=== PATIENT | male | born 1970 | race Caucasian/White ===

== ENCOUNTER 2021-09-22 09:23 | Outpatient (CLI) | payer BC, SELFPAY ==
[2021-09-22 14:04] LABS: Chloride* 98 mmol/L (96-114); Potassium* 3.1 mmol/L (3.6-5.1); Sodium* 136 mmol/L (135-149)
[2021-09-22 14:07] LABS: Blood Urea Nitrogen* 11 mg/dL (7-30); Carbon Dioxide* 34 mmol/L (20-32); Cholesterol* 194 mg/dL (90-199); Creatinine* 1.1 mg/dL (0.5-1.5); Estimated Glomerular Filt Rate 80.77; Glucose* 100 mg/dL (60-115); Triglycerides* 92 mg/dL (40-149)
[2021-09-22 14:08] LABS: Calcium* 8.6 mg/dL (8.4-10.6); HDL Cholesterol* 38 mg/dL (>=40); LDL Cholesterol Calculated 138 mg/dL (<100)
== END 2021-09-22 09:24 | disposition home or self-care (01) ==
PROVIDERS: PCP Family Medicine; Visit Provider Family Medicine
DX: E78.5 Hyperlipidemia, unspecified (principal); E87.6 Hypokalemia; D50.0 Iron deficiency anemia secondary to blood loss (chronic); I10 Essential (primary) hypertension
CPT/HCPCS: 80048; 80061

== ENCOUNTER 2022-01-26 10:59 | Outpatient (CLI) | payer BC, SELFPAY ==
[2022-01-26 13:37] LABS: Basophils Absolute Auto 0.02 K/uL (0.00-0.30); Basophils Percent Auto 0.2 % (0.0-3.0); Eosinophils Absolute Auto 0.09 K/uL (0.00-0.50); Eosinophils Percent Auto 1.1 % (0.0-7.0); Hematocrit 44.1 % (37.0-53.0); Hemoglobin* 14.8 gm/dL (13.5-17.5); Immature Granulocytes Abs Auto 0.02 K/uL (0.00-0.30); Immature Granulocytes Pct Auto 0.2 %; Lymphocytes Percent Auto 6.8 % (20-44); Mean Corpuscular HGB Conc 34 gm/dL (32-36); Mean Corpuscular Hemoglobin 29 pg (26-34); Mean Corpuscular Volume 86 fL (80-100); Monocytes Percent Auto 5.7 % (0.0-11.0); Platelet Count* 285 K/uL (140-440); RDW Coefficient of Variation % 14.9 % (11.5-15.5); Red Blood Count 5.14 m/uL (4.30-5.90); White Blood Count* 8.09 K/uL (4.50-11.00)
[2022-01-26 13:46] LABS: Slide Review Reflex No
[2022-01-26 14:18] LABS: Chloride* 93 mmol/L (96-114); Sodium* 135 mmol/L (135-149)
[2022-01-26 14:21] LABS: Creatinine* 1.1 mg/dL (0.5-1.5); Estimated Glomerular Filt Rate 81 ml/min
[2022-01-26 14:22] LABS: Blood Urea Nitrogen* 12 mg/dL (7-30); Calcium* 8.7 mg/dL (8.4-10.6); Carbon Dioxide* 35 mmol/L (20-32); Glucose* 124 mg/dL (60-115); Magnesium* 1.8 mg/dL (1.5-2.6)
[2022-01-26 14:30] LABS: Potassium* 2.4 mmol/L (3.6-5.1)
[2022-01-26 14:31] LABS: NT Pro B Type NatriureticPept* 619 PG/mL (0-125)
[2022-01-26 15:03] LABS: SARS PCR* POSITIVE SARS-CoV-2 (Negative)
== END 2022-01-26 11:00 | disposition home or self-care (01) ==
PROVIDERS: PCP Family Medicine; Visit Provider Family Medicine
DX: R53.1 Weakness (principal); R53.83 Other fatigue; R50.9 Fever, unspecified; I10 Essential (primary) hypertension; E87.6 Hypokalemia; E78.5 Hyperlipidemia, unspecified; F41.1 Generalized anxiety disorder
CPT/HCPCS: 80048; 83735; 83880; 84443; 85025; 87635

== ENCOUNTER 2022-02-04 09:28 | Inpatient (IN) | payer BC, SELFPAY ==
[2022-02-04] VITALS (14 sets, daily range): BP systolic 117–149; BP diastolic 69–121; PULSE 50–74; RESP 18–20; TEMP 35.9–36.9; O2SAT 94–98; BMI 33.0
--- NOTE | 2022-02-04 10:02 | CRLHL7_ITS ---
For Patients: As a result of the Century Cures Act, medical imaging exams and procedure reports are released immediately into your electronic medical record. You may view this report before your referring provider. If you have questions, please contact your health care provider. INDICATION: Shortness of breath TECHNIQUE: Chest 1 view COMPARISON: CT 04/04/2021 FINDINGS: The lungs have cleared since the prior study. Improved appearance of the mediastinum with decreased adenopathy. No recurrent infiltrate. No effusion or pneumothorax. IMPRESSION: No acute findings. Dictated by Poli Romano MD @ 02/04/2022 10:39:06 AM (Electronically Signed)
[2022-02-04 10:23] LABS: Basophils Absolute Auto 0.02 K/uL (0.00-0.30); Basophils Percent Auto 0.2 % (0.0-3.0); Eosinophils Absolute Auto 0.07 K/uL (0.00-0.50); Eosinophils Percent Auto 0.9 % (0.0-7.0); Hematocrit 45.9 % (37.0-53.0); Hemoglobin* 15.9 gm/dL (13.5-17.5); Immature Granulocytes Abs Auto 0.03 K/uL (0.00-0.30); Immature Granulocytes Pct Auto 0.4 %; Lymphocytes Percent Auto 17.1 % (20-44); Mean Corpuscular HGB Conc 35 gm/dL (32-36); Mean Corpuscular Hemoglobin 29 pg (26-34); Mean Corpuscular Volume 83 fL (80-100); Monocytes Percent Auto 7.3 % (0.0-11.0); Neutrophils Percent Auto 74.1 % (42.0-72.0); Platelet Count* 353 K/uL (140-440); Red Blood Count 5.53 m/uL (4.30-5.90); White Blood Count* 8.06 K/uL (4.50-11.00)
[2022-02-04 10:24] LABS: Slide Review Reflex No
[2022-02-04] MEDS: POTASSIUM CHLORIDE 10 MEQ/100 ML PIGGYBACK 100 MEQ IVPB (10:25)
[2022-02-04] MEDS: 0.9 % SODIUM CHLORIDE 1000 ml 1,000 ML IV (10:25)
[2022-02-04 10:37] LABS: Albumin* 4.4 g/dL (3.3-5.0); Chloride* 91 mmol/L (96-114)
[2022-02-04 10:38] LABS: Sodium* 137 mmol/L (135-149)
[2022-02-04 10:40] LABS: Creatinine* 0.9 mg/dL (0.5-1.5); Est. Creatinine Clearance* 99.14; Estimated Glomerular Filt Rate 103 ml/min
[2022-02-04 10:41] LABS: Alanine Aminotransferase* 25 U/L (4-50); Alkaline Phosphatase* 100 U/L (40-150); Aspartate Amino Transferase* 28 U/L (12-35); Bilirubin Direct* 0.2 mg/dL (0.0-0.5); Blood Urea Nitrogen* 8 mg/dL (7-30); Calcium* 8.5 mg/dL (8.4-10.6); Carbon Dioxide* 39 mmol/L (20-32); D Dimer Quantitative* 0.27 ug/ml (0.00-0.50); Glucose* 125 mg/dL (60-115); Magnesium* 1.7 mg/dL (1.5-2.6); Total Protein* 7.6 g/dL (6.0-8.3)
--- OUTSIDE RECORDS SUMMARY | 2022-02-04 10:44 | XMS_ITS | Clinical Summary ---
:1970 Author Organization [employer] [facility] [place] [address] Care Team Providers Name Role Phone Pcp, No Primary Care Provider Unavailable Allergies Active Allergy Reactions Severity Noted Date Comments Ciprofloxacin Vomiting 05/04/2007 Rosuvastatin Nausea And Vomiting 04/04/2021 Triamterene-Hydrochlorothiazid Dizziness 08/06/2020 Medications Medication Sig Dispensed Refills Start Date End Date Status DULoxetine Take 1 capsule by 90 capsule 3 05/30/2017 Active (CYMBALTA) 60 mg mouth once daily. Delayed-release capsuleIndications: Major depressive disorder, recurrent episode, moderate (HC) DULoxetine Take 1 capsule by 90 capsule 3 05/30/2017 Active (CYMBALTA) 30 mg mouth once daily. Delayed-release capsuleIndications: Major depressive disorder, recurrent episode, moderate (HC) buPROPion Take 1 tablet by 90 tablet 3 05/30/2017 Ac tive (WELLBUTRIN XL) 300 mouth every mg Extended-Release morning. tabletIndications: Major depressive disorder, recurrent episode, moderate (HC) metoprolol succinate Take 200 mg by 0 06/04/2019 Active (TOPROL XL) 100 mg mouth once daily. Sustained-Release tablet aspirin chewable 81 Take 1 tablet by 0 06/17/2019 Active mg chewable mouth once daily. tabletIndications: ST elevation myocardial infarction (STEMI), unspecified artery (HC) clopidogreL (PLAVIX) Take 1 tablet by 90 tablet 3 06/17/2019 Active 75 mg mouth once daily. tabletIndications: ST elevation myocardial infarction (STEMI), unspecified artery (HC) nitroglycerin Place 1 tablet 30 tablet 3 06/16/2019 Active (NITROSTAT) 0.4 mg under the tongue sublingual every 5 minutes if tabletIndications: needed. Max 3 ST elevation doses. Call 911 if myocardial no relief as infarction (STEMI), directed. unspecified artery (HC) acetaminophen Take 325-650 mg by 0 Active (TYLENOL) 325 mg mouth once daily if tablet needed (headache). Max acetaminophen dose: 4000mg in 24 hrs. omeprazole Take 1 capsule by 30 capsule 0 07/17/2019 Active (PRILOSEC) 20 mg mouth every morning Delayed-Release capsuleIndications: Nausea and vomiting, intractability of vomiting not specified, unspecified vomiting type ondansetron (ZOFRAN Place 1 tablet on 12 tablet 0 07/17/2019 Active ODT) 4 mg the tongue every 8 disintegrating hours if needed for tabletIndications: Nausea/Vomiting. Vomiting and diarrhea tamsulosin (FLOMAX) Take 0.4 mg by 0 09/30/2019 Active 0.4 mg capsule mouth once daily after a meal. meclizine (ANTIVERT) TK 1 T PO Q 8 H PRN 0 0 Active 25 mg tablet amLODIPine (NORVASC) Take 10 mg by mouth 0 Active 10 mg tablet once daily. ARIPiprazole Take 30 mg by mouth 0 Active (Abilify) 30 mg once daily. tablet ferrous sulfate, 65 Take 325 mg by 0 Active mg elemental, tablet mouth 2 times daily with meals. magnesium oxide Take 400 mg by 0 Active (MAG-OX 400) 400 mg mouth 2 times tablet daily. losartan (COZAAR) 50 Take 50 mg by mouth 0 Active mg tablet once daily. spironolactone Take 50 mg by mouth 0 Active (ALDACTONE) 50 mg once daily. tablet potassium chloride Take 2 Tablets (40 0 04/06/2021 Active (KLOR-CON M20) 20 mEq) by mouth 2 mEq Extended-Release times daily with tabletIndications: meals. Hypokalemia furosemide (LASIX) Take 1 Tablet (40 30 Tablet 0 04/07/2021 Active 40 mg mg) by mouth every tabletIndications: morning. Chronic diastolic congestive heart failure (HC) Active Problems Problem Noted Date Acute on chronic diastolic congestive heart failure Fever 04/04/2021 Hypoxia 04/04/[address] 04/04/2021 Abdominal pain 07/15/2019 Hyponatremia 07/15/2019 Acute kidney injury 07/15/2019 STEMI (ST elevation myocardial infarction) 06/15/2019 HTN (hypertension) 06/15/2019 Anxiety and depression 06/15/2019 Tobacco use 06/15/2019 Leucocytosis 06/15/2019 Hyperglycemia 06/15/2019 Hyperlipidemia 02/09/2012 Hypertension 04/19/2011 Major depressive disorder, recurrent episode, moderate 08/31/2008 Tobacco use disorder 05/07/2007 Resolved Problems Problem Noted Date Resolved Date Major depressive disorder, recurrent episode, mild 8 08/31/2008 Immunizations Name Administration Dates Next Due Tdap 11/02/2010 Family History Medical History Relation Name Comments Diabetes Brother 3 Diabetes Father Hypertension Father Diabetes Maternal Grandmother Cancer-prostate Paternal Grandfather Diabetes Paternal Grandmother Stroke Paternal Grandmother Relation Name Status Comments Brother 1 Alive Brother 2 Alive Brother 3 Father Alive Maternal Grandmother Mother Alive Paternal Grandfather Paternal Grandmother Social History Tobacco Use Types Packs/Day Years Used Date Former Smoker Cigarettes 1.5 Quit: 06/14/19 20 Smokeless Tobacco: Never Used Tobacco Cessation: Ready to Quit: No; Co unseling Given: Yes Alcohol Use Standard Drinks/Week Comments No 0 (1 standard drink = 0.6 oz pure alcoho l) Sex Assigned at Date Recorded Not on file Obstetrics History Last Filed Vital Signs Vital Sign Reading Time Taken Comments Blood Pressure 114/72 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 Pulse 63 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 Temperature 36.4 ??C (97.6 ??F) 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 Respiratory Rate 16 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 Oxygen Saturation 96% 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 Inhaled Oxygen Concentration - - Weight 91.6 kg (201 lb 15.1 oz) 04/06/2021 6:00 AM 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 Height 177.8 cm (5' 10) 04/04/2021 12:30 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 Body Mass Index 28.98 04/04/2021 12:30 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 Plan of Treatment Health Maintenance Due Date Last Done Comments Pneumococcal series for age 19-64 07/31/1975 (1 - PCV) HIV for age 15-65 1984 Hepatitis C screening for age 0507/31/1987 18-79 Zoster (shingles) series for age 0507/30/1988 50+ (1 of 2) Colonoscopy through age 75 2014 Depression screening for age 12+ 06/13/2020 06/14/2019, , 11/17/2015 COVID-19 vaccine series (3 - 09/04/2020 07/10/2020, 021 Booster for Pfizer series) BMI (ht and wt on same day) for 10/15/2020 10/16/2019, 05/12, age 18+ 09/05/2016, Additional history exists Tetanus booster 11/02/2020 11/02/2010, 11/02/2010 Influenza for age 50-64 11/11/2021 Lipids for age 45-75 05/30/2022 05/30/2017, 11/17/2015, 01/21/2013, Additional history exists Tdap Completed 11/02/2010 Results Not on filefrom Last 3 Months Insurance Payer Benefit Plan / Subscriber ID Effective Dates Phone Addre ss Type Group BLUE [employer]OSS [employer] [id number] 2019-Present [address] [place] [address] Advance Directives Latest Code Status on File Code Status Date Activated Date Inactivated Comments Full Code 04/04/2021 2:13 PM 04/06/2021 4:15 PM Code Status Discussion: Unable to Assess Preferences, Provid er to review later Full Code 07/15/2019 9:37 PM 07/17/2019 4:42 PM Code Status Discussion: Discussed Full Code 06/14/2019 9:23 PM 06/16/2019 3:19 PM Full Code 06/14/2019 9:23 PM 06/14/2019 9:23 PM Care Teams 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
[2022-02-04 10:49] LABS: NT Pro B Type NatriureticPept* 593 PG/mL (0-125); Potassium* 2.1 mmol/L (3.6-5.1)
[2022-02-04 10:54] LABS: Troponin I* 0.04 ng/mL (0.01-0.04)
--- NOTE | 2022-02-04 11:01 | ED.NURSE ---
MD Vaughn updated on pt k 2.1
[2022-02-04 11:31] LABS: SARS Antigen* negative (Negative)
[2022-02-04] MEDS: POTASSIUM BICARB 25 MEQ EFFERVESCENT TAB 50 MEQ PO (11:55)
--- NOTE | 2022-02-04 13:36 | P.IMHP_ITS ---
Hospitalist- H&P: HPI History of Present Illness Date Seen: 02/04/22 Chief complaint: Low K Narrative: Sang Blandno is a 51 year old male who presented to the ER for not feeling well. Patient notes an approximate 10 day history of feeling weak, is intermittently nauseated. Was seen at PCPs office 9 days ago, diagnosed with COVID at the time. At that time his potassium was 2.4. Known history of hypokalemia. Notes that because of illness, he hasn't been taking his potassium suppl ementation all week (on this for iatrogenic hypokalemia - on Lasix for history of CHF). He often misses his potassium supplementation secondary to taste. Notes that the bicarbonate effervescent version is much more tolerable for him. He currently has no chest pain, no dyspnea. History of hypokalemia (patient admitted for this multiple times in the past - has had normal renal and aldosterone levels in the past). Also has a history of STEMI 06/14/2019. He had stenting of his RCA, treated with dual antiplatelet therapy and rosuvastatin. In July 2019, hospitalized for Acute Renal Failure (?ATN as source) and both his olmesartan and rosuvastatin were stopped at that time. He also has a history of anemia that has been worked up with colonoscopy and endoscopy. Other past medical and surgical history updated below. Last TTE 03/2021: Final Impressions: 1. Normal LV size, mildly increased wall thickness, normal function with an estimated EF of 55 - 60%. 2. Inferior wall is abnormal. 3. Right ventricular cavity size is normal, global systolic RV function is normal. 4. Mildly enlarged left atrium. 5. The aortic valve is normal and trileaflet, no stenosis and mild to moderate regurgitation. 6. The aortic sinus is mildly dilated with a maximal diameter of 4.2 cm. 7. The inferior vena cava is consistent with elevated right atrial pressure. 8. Mildly increased estimated pulmonary pressure (32 mmHg plus RAP). ? Comparison Compared to prior exam of 10/2020: The degree of AI has increased slightly and the estimated CVP is higher. The inferior WMA was probably present on the prior study on re-review. Review of Systems Status of ROS: Reports: 10 or more systems reviewed and unremarkable except as noted in History and below Narrative: Chronic daily headache, noted in bilateral temples. Typically this is present at all times, does feel that it has been worse than last week, queries COVID as cause. Some difficulty sleeping, endorses mild orthopnea. No PND. PFSH PFS Medical History (Updated 02/04/22 @ 15:32 by Jessenia Richard MD) Acute congestive heart failure Daily headache Erectile dysfunction Gastroesophageal reflux disease Generalized anxiety disorder History of CHF (congestive heart failure) History of colonic polyps Hyperlipidemia Hypertension Hypokalemia Iron deficiency anemia due to chronic blood loss Melena Moderate episode of recurrent major depressive disorder (08/31/08) ST elevation myocardial infarction (STEMI) (06/15/19) Family History (Updated 10/04/21 @ 02:[address] MD) Family/Other Stroke Prostate cancer Father High blood pressure Lung cancer Type 1 diabetes mellitus Daughter Anxiety Social History (Updated 08/20/21 @ 10:54 by Christiano Knox) Narrative: tobacco use , 2 kids, 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, smoker, no EtOH Smoking Status: Former smoker Do you use any of these nicotine containing products: None Second hand tobacco smoke exposure: No How often do you have a drink containing alcohol: never AUDIT-C Alcohol total score: 0 Non-prescribed substance use: denies use Little interest or pleasure in doing things: nearly every day Feeling down, depressed, or hopeless: more than half the days service: No Meds Home Medications and Allergies Home Medications Medication Instructions Recorded Confirmed Type amlodipine 10 mg tablet 10 mg PO DAILY 09/22/21 02/04/22 History aspirin 81 mg chewable tablet 1 tab PO DAILY 09/22/21 02/04/22 History clopidogrel 75 mg tablet 75 mg PO DAILY 09/22/21 02/04/22 History ferrous sulfate 325 mg (65 mg 325 mg PO QDAY 09/22/21 02/04/22 History iron) tablet furosemide 40 mg tablet 40 mg PO DAILY 09/22/21 02/04/22 History losartan 50 mg tablet 50 mg PO DAILY 09/22/21 02/04/22 History magnesium oxide 400 mg (241.3 mg 400 mg PO QDAY 09/22/21 02/04/22 History magnesium) tablet metoprolol succinate 200 mg 200 mg PO DAILY 09/22/21 02/04/22 History tablet,extended release 24 hr omeprazole 20 mg capsule,delayed 20 mg PO DAILY 09/22/21 02/04/22 History release potassium chloride 20 mEq 40 meq PO BID 09/22/21 02/04/22 History tablet,extended release(part/cryst) spironolactone 50 mg tablet 50 mg PO DAILY 09/22/21 02/04/22 History tadalafil 20 mg tablet 20 mg PO .As Needed PRN 09/22/21 02/04/22 History tamsulosin 0.4 mg capsule 0.4 mg PO DAILY 09/22/21 02/04/22 History zolpidem 10 mg tablet 10 mg PO HS PRN 09/22/21 02/04/22 History duloxetine 30 mg capsule,delayed 30 mg PO QAM 01/26/22 02/04/22 History release duloxetine 60 mg capsule,delayed 60 mg PO QAM 01/26/22 02/04/22 History release nitroglycerin 0.4 mg sublingual 0.4 mg sublingual .As Needed as 01/26/22 02/04/22 History tablet needed PRN Allergies Allergy/AdvReac Type Severity Reaction Status Date / Time ciprofloxacin Allergy Severe violently Verified 02/04/22 09:40 ill rosuvastatin Allergy Unknown shutting Verified 02/04/22 09:40 kidneys down triamterene [From Maxzide] AdvReac Intermediate Verified 02/04/22 13:52 hydrochlorothiazide AdvReac Verified 02/04/22 13:52 Exam Narrative: Exam Narrative: GEN: Alert and oriented, answering questions appropriately HEENT: Normal external ears, EOMIs bilaterally CV: RRR, No concerning murmurs, rubs, or gallops R: LCTA bilaterally without concerning wheezing, rales, or rhonchi Ext: wwp, no concerning edema Skin: No concerning skin lesions or rashes on exposed skin Neuro: Nonfocal, no fasciculations Psych: Appropriate Const: Vital Signs, click to edit/add: Vital Signs - 24 hr 02/04/22 09:41 02/04/22 10:02 02/04/22 10:33 Temperature 96.6 F L Pulse Rate 55 L Pulse Rate [Pulse Oximeter] 56 L Respiratory Rate 20 Blood Pressure 137/72 Blood Pressure [Le ft Upper Arm] 134/86 Pulse Oximetry 96 98 95 Oxygen Delivery Me thod Room Air 02/04/22 11:05 02/04/22 11:30 02/04/22 11:32 Temperature Pulse Rate 57 L 62 Pulse Rate [Pulse Oximeter] Respiratory Rate Blood Pressure 131/121 H 126/102 H Blood Pressure [Le ft Upper Arm] Pulse Oximetry 96 95 Oxygen Delivery [facility] 02/04/22 12:02 02/04/22 12:33 02/04/22 12:52 Temperature Pulse Rate 59 L 51 L 51 L Pulse Rate [Pulse Oximeter] Respiratory Rate Blood Pressure 125/90 H 125/69 Blood Pressure [Le ft Upper Arm] Pulse Oximetry 96 97 Oxygen Delivery [facility] Hospitalist - H&P: Result Labs Labs: Short CBC 02/04/22 Range/Units 10:15 WBC 8.06 (4.50-11.00) K/uL Hgb 15.9 (13.5-17.5) gm/dL Hct 45.9 (37.0-53.0) % Plt Count 353 (140-440) K/uL BMP 02/04/22 10:15 Sodium 137 Potassium 2.1 L* Chloride 91 L Carbon Dioxide 39 H BUN 8 Creatinine 0.9 Glucose 125 H Calcium 8.5 Cardiac Enzymes 02/04/22 Range/Units 10:15 Troponin I 0.04 (0.01-0.04) ng/mL Liver Function 02/04/22 Range/Units 10:15 Total Bilirubin 1.0 (0.1-1.5) mg/dL Direct Bilirubin 0.2 (0.0-0.5) mg/dL AST 28 (12-35) U/L ALT 25 (4-50) U/L Alkaline Phosphatase 100 (40-150) U/L Albumin 4.4 (3.3-5.0) g/dL Assessment and Plan Assessment and plan (1) Hypokalemia: Problem comment: - Recurrent, combination of iatrogenic from Lasix and secondary to poor medication compliance - replace with effervescent potassium - increased dose of spironolactone to prevent recurrence - follow potassium and magnesium closely Status: Acute (2) Hyperlipidemia: Status: Acute (3) Hypertension: Status: Acute (4) Gastroesophageal reflux disease: Problem comment: - continue home PPI Status: Acute (5) History of CHF (congestive heart failure): Problem comment: - repeat TTE given recent COVID and concerns of orthopnea Status: Acute Plan - per above - TTE to be done today - follow electrolytes closely - continue medications further comorbidities - aspirin, Plavix, SCDs for prophylaxis
[2022-02-04] MEDS: POTASSIUM BICARB 25 MEQ EFFERVESCENT TAB PO ×4 (14:24→19:34)
[2022-02-04 14:39] LABS: Potassium* 2.6 mmol/L (3.6-5.1)
--- NOTE | 2022-02-04 15:27 | PC.NURSE ---
pt came to floor 1210. alert and orientated x4. he is eating, drinking. minimal drainage. IV is patent. he drank 700 cc. he is eating jello and pudding. he was up walking. 1430 he asked to go home. called and updated Dr. Hughes and ok for pt to go home. went over discharge packet with pt and pt and walked out with all belongings and paperwork.
--- NOTE | 2022-02-04 16:21 | ED_ITS ---
HPI - General Adult General Date Seen: 02/04/22 Chief complaint: Weakness Stated complaint: Low K Time Seen by Provider: 02/04/22 09:38 Source: patient History of Present Illness HPI narrative: Patient is a 51-year-old male who presents to the ER with ongoing weakness. He says that a couple weeks ago, he had been having trouble with weakness, shortness of breath, cough, went to clinic with these symptoms and had some testing done. He was noted to be hypokalemic at 2.4. He does have a history of chronic hypokalemia and is on replacement which he had been having some difficulty taking due to some nausea. Says he always has some difficulty with his oral potassium because the pills are really big, and it had been exacerbated because he was feeling well. He also was found to have COVID at that time. Since then, his COVID symptoms, specifically the cough, aches etcetera seem to have gotten better, however the weakness seems to have gotten worse. He is just very tired. He notes that since that visit he has not really taken any potassium replacement, as it has remained difficult to take the pills. He did try the liquid once but said he vomited that up. He has not had any focal weakness. He has headaches but that is not unusual. He denies any other pain, no chest pain or abdominal pain. He has not had vomiting or diarrhea. No lightheadedness or syncope. He is not entirely sure what the underlying cause for his hypokalemia is. He appears to be on both Lasix and spironolactone. He is also on potassium and magnesium replacement daily. Related Data Home Medications Medication Instructions Recorded Confirmed amlodipine 10 mg tablet 10 mg PO DAILY 09/22/21 02/04/22 aspirin 81 mg chewable tablet 1 tab PO DAILY 09/22/21 02/04/22 clopidogrel 75 mg tablet 75 mg PO DAILY 09/22/21 02/04/22 ferrous sulfate 325 mg (65 mg 325 mg PO QDAY 09/22/21 02/04/22 iron) tablet furosemide 40 mg tablet 40 mg PO DAILY 09/22/21 02/04/22 losartan 50 mg tablet 50 mg PO DAILY 09/22/21 02/04/22 magnesium oxide 400 mg (241.3 mg 400 mg PO QDAY 09/22/21 02/04/22 magnesium) tablet metoprolol succinate 200 mg 200 mg PO DAILY 09/22/21 02/04/22 tablet,extended release 24 hr omeprazole 20 mg capsule,delayed 20 mg PO DAILY 09/22/21 02/04/22 release potassium chloride 20 mEq 40 meq PO BID 09/22/21 02/04/22 tablet,extended release(part/cryst) spironolactone 50 mg tablet 50 mg PO DAILY 09/22/21 02/04/22 tadalafil 20 mg tablet 20 mg PO .As Needed PRN 09/22/21 02/04/22 tamsulosin 0.4 mg capsule 0.4 mg PO DAILY 09/22/21 02/04/22 zolpidem 10 mg tablet 10 mg PO HS PRN 09/22/21 02/04/22 duloxetine 30 mg capsule,delayed 30 mg PO QAM 01/26/22 02/04/22 release duloxetine 60 mg capsule,delayed 60 mg PO QAM 01/26/22 02/04/22 release nitroglycerin 0.4 mg sublingual 0.4 mg sublingual .As Needed as 01/26/22 02/04/22 tablet needed PRN Previous Rx's Medication Instructions Recorded bupropion HCl 300 mg 24 hr tablet, 300 mg PO DAILY #90 tabs 11/03/21 extended release aripiprazole 30 mg tablet 30 mg PO DAILY #90 tabs 12/27/21 Allergies Allergy/AdvReac Type Severity Reaction Status Date / Time ciprofloxacin Allergy Severe violently Verified 02/04/22 09:40 ill rosuvastatin Allergy Unknown shutting Verified 02/04/22 09:40 kidneys down triamterene [From Maxzide] AdvReac Intermediate Verified 02/04/22 13:52 hydrochlorothiazide AdvReac Verified 02/04/22 13:52 Review of Systems Status of ROS: Reports: 10 or more systems reviewed and unremarkable except as noted in History and below [facility] Medical History Acute congestive heart failure Daily headache Erectile dysfunction Gastroesophageal reflux disease Generalized anxiety disorder History of CHF (congestive heart failure) History of colonic polyps Hyperlipidemia Hypertension Hypokalemia Iron deficiency anemia due to chronic blood loss Melena Moderate episode of recurrent major depressive disorder (08/31/08) ST elevation myocardial infarction (STEMI) (06/15/19) Family History Family/Other Stroke Prostate cancer Father High blood pressure Lung cancer Type 1 diabetes mellitus Daughter Anxiety Social History Narrative: tobacco use , 2 kids, 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, smoker, no EtOH Smoking Status: Former smoker Do you use any of these nicotine containing products: None Second hand tobacco smoke exposure: No How often do you have a drink containing alcohol: never AUDIT-C Alcohol total score: 0 Non-prescribed substance use: denies use Little interest or pleasure in doing things: nearly every day Feeling down, depressed, or hopeless: more than half the days service: No Exam Narrative: Exam Narrative: Vital signs as noted above. In general, an alert, well-appearing patient. Breathing easily. Head: Normocephalic, atraumatic. Eyes: Pupils are equal reactive. Extraocular movements are full. Conjunctivae are normal. No scleral icterus. ENT: Mucous membranes are moist. Throat is normal. Neck: Supple without lymphadenopathy. No stridor. Heart: Bradycardic and regular. No murmur. Lungs: Clear bilaterally. No increased work of breathing, crackles or wheezes. Abdomen: Soft and nontender. No organomegaly. Extremities: Well perfused. No edema. No calf tenderness. Pulses intact. No clonus. Neurologic: Patient is alert and oriented to person and place. Speech is fl uent. Face is symmetric. Moves all extremities equally. Affect: Normal. Skin: Warm and dry. Well perfused. No rashes. Const: Vital Signs, click to edit/add: Vital Signs - 24 hr 02/04/22 09:41 02/04/22 10:02 02/04/22 10:33 Temperature 96.6 F L Pulse Rate 55 L Pulse Rate [Pulse Oximeter] 56 L Respiratory Rate 20 Blood Pressure 137/72 Blood Pressure [Le ft Upper Arm] 134/86 Pulse Oximetry 96 98 95 Oxygen Delivery Me thod Room Air 02/04/22 11:05 02/04/22 11:30 02/04/22 11:32 Temperature Pulse Rate 57 L 62 Pulse Rate [Pulse Oximeter] Respiratory Rate Blood Pressure 131/121 H 126/102 H Blood Pressure [Le ft Upper Arm] Pulse Oximetry 96 95 Oxygen Delivery Me thod 02/04/22 12:02 02/04/22 12:33 02/04/22 12:52 Temperature Pulse Rate 59 L 51 L 51 L Pulse Rate [Pulse Oximeter] Respiratory Rate Blood Pressure 125/90 H 125/69 Blood Pressure [Le ft Upper Arm] Pulse Oximetry 96 97 Oxygen Delivery Me thod Documenting provider has reviewed patient's vital signs: yes Course Reevaluation(s) Reevaluation #1: Following initial evaluation, patient was maintained on monitor and oximetry. I placed an IV, I ordered normal saline and ordered 10 mEq of potassium at the same time. I had reviewed his records, his potassium was 2.4 on the , and given that he is not taking any replacement I doubt that his potassium is any higher than that now. An EKG was done, this shows a sinus bradycardia, he has biphasic T-waves in the lateral leads which are different compared to a previous EKG in which there upright. I do think this is related primarily to his hypokalemia. Q-waves in the inferior leads are not new compared to his previous EKG. QT is prolonged at 504 milliseconds, again attributable most likely to his hypokalemia. I checked a magnesium which was normal at 1.7. BUN creatinine are normal. Blood sugar was normal. LFTs unremarkable. BNP mildly elevated at 593. TSH was normal. COVID was negative now. A portable chest x-ray by my review was negative for superimposed pneumonia, COVID pneumonia, pleural effusion or pulmonary edema. CBC was normal, white blood cell count is 8 and hemoglobin is 16. It does appear that his symptoms are primarily likely related to his profoundly low potassium, which returned at 2.1 here today. I gave him 50 mEq of oral potassium as well which he tolerated okay here. He will need to be hospitalized for inpatient replacement of his potassium in the short term. Vital Signs Vital signs: Initial Vital Signs Temperature 96.6 F L 02/04/22 09:41 Temperature Source Temporal Artery Scan 02/04/22 09:41 Pulse Rate 56 L 02/04/22 09:41 Pulse Rhythm 02/04/22 09:41 Respiratory Rate 20 02/04/22 09:41 Blood Pressure 134/86 02/04/22 09:41 Blood Pressure Mean 102 02/04/22 09:41 Blood Pressure Position Supine 02/04/22 09:41 Pulse Oximetry 96 02/04/22 09:41 Oxygen Delivery Method 02/04/22 09:41 Vital Signs Temperature 96.6 F L 02/04/22 09:41 Pulse Rate 56 L 02/04/22 09:41 Respiratory Rate 20 02/04/22 09:41 Blood Pressure 134/86 02/04/22 09:41 Pulse Oximetry 96 02/04/22 09:41 Oxygen Delivery Method 02/04/22 09:41 Temperature 98.5 F 02/04/22 16:11 Pulse Rate 74 02/04/22 16:11 Respiratory Rate 18 02/04/22 16:11 Blood Pressure 117/99 H 02/04/22 16:11 Pulse Oximetry 98 02/04/22 16:11 Oxygen Delivery Method 02/04/22 16:11 Medical Decision Making Lab Data Labs: Lab Results 02/04/22 02/04/22 02/04/22 Range/Units 10:03 10:15 10:15 WBC 8.06 (4.50-11.00) K/uL RBC 5.53 (4.30-5.90) m/uL Hgb 15.9 (13.5-17.5) gm/dL Hct 45.9 (37.0-53.0) % MCV 83 (80-100) fL MCH 29 (26-34) pg MCHC 35 (32-36) gm/dL RDW Coeff of Linus 14.0 (11.5-15.5) % Plt Count 353 (140-440) K/uL Neut % (Auto) 74.1 H (42.0-72.0) % Lymph % (Auto) 17.1 L (20-44) % [place] % (Auto) 7.3 (0.0-11.0) % Eos % (Auto) 0.9 (0.0-7.0) % Baso % (Auto) 0.2 (0.0-3.0) % Neut # (Auto) 6.00 (1.7-7.0) K/uL Lymph # (Auto) 1.40 (0.90-2.90) K/uL [place] # (Auto) 0.60 (0.00-0.90) K/UL Eos # (Auto) 0.07 (0.00-0.50) K/uL Baso # (Auto) 0.02 (0.00-0.30) K/uL Abs Immat Gran (auto) 0.03 (0.00-0.30) K/uL Imm/Tot Granulo (auto) 0.4 % D-Dimer Quant (PE/DVT) 0.27 (0.00-0.50) ug/ml Sodium (135-149) mmol/L Potassium (3.6-5.1) mmol/L Chloride (96-114) mmol/L Carbon Dioxide (20-32) mmol/L BUN (7-30) mg/dL Creatinine (0.5-1.5) mg/dL Estimated Creat Clear Estimated GFR ml/min Glucose (60-115) mg/dL Calcium (8.4-10.6) mg/dL Magnesium (1.5-2.6) mg/dL Total Bilirubin (0.1-1.5) mg/dL Direct Bilirubin (0.0-0.5) mg/dL AST (12-35) U/L ALT (4-50) U/L Alkaline Phosphatase (40-150) U/L Troponin I (0.01-0.04) ng/mL C-Reactive Protein (0.5-1.0) mg/dL NT-Pro-B Natriuret Pep (0-125) PG/mL Total Protein (6.0-8.3) g/dL Albumin (3.3-5.0) g/dL TSH 1.640 (0.270-4.200) uIU/mL SARS-CoV-2 Ag (Rapid) (Negative) 02/04/22 02/04/22 02/04/22 Range/Units 10:15 10:57 14:00 WBC (4.50-11.00) K/uL RBC (4.30-5.90) m/uL Hgb (13.5-17.5) gm/dL Hct (37.0-53.0) % MCV (80-100) fL MCH (26-34) pg MCHC (32-36) gm/dL RDW Coeff of Linus (11.5-15.5) % Plt Count (140-440) K/uL Neut % (Auto) (42.0-72.0) % Lymph % (Auto) (20-44) % [place] % (Auto) (0.0-11.0) % Eos % (Auto) (0.0-7.0) % Baso % (Auto) (0.0-3.0) % Neut # (Auto) (1.7-7.0) K/uL Lymph # (Auto) (0.90-2.90) K/uL [place] # (Auto) (0.00-0.90) K/UL Eos # (Auto) (0.00-0.50) K/uL Baso # (Auto) (0.00-0.30) K/uL Abs Immat Gran (auto) (0.00-0.30) K/uL Imm/Tot Granulo (auto) % D-Dimer Quant (PE/DVT) (0.00-0.50) ug/ml Sodium 137 (135-149) mmol/L Potassium 2.1 L* 2.6 L* (3.6-5.1) mmol/L Chloride 91 L (96-114) mmol/L Carbon Dioxide 39 H (20-32) mmol/L BUN 8 (7-30) mg/dL Creatinine 0.9 (0.5-1.5) mg/dL Estimated Creat Clear 99.14 Estimated GFR 103 ml/min Glucose 125 H (60-115) mg/dL Calcium 8.5 (8.4-10.6) mg/dL Magnesium 1.7 (1.5-2.6) mg/dL Total Bilirubin 1.0 (0.1-1.5) mg/dL Direct Bilirubin 0.2 (0.0-0.5) mg/dL AST 28 (12-35) U/L ALT 25 (4-50) U/L Alkaline Phosphatase 100 (40-150) U/L Troponin I 0.04 (0.01-0.04) ng/mL C-Reactive Protein 2.0 H (0.5-1.0) mg/dL NT-Pro-B Natriuret Pep 593 H (0-125) PG/mL Total Protein 7.6 (6.0-8.3) g/dL Albumin 4.4 (3.3-5.0) g/dL TSH (0.270-4.200) uIU/mL SARS-CoV-2 Ag (Rapid) negative (Negative)
--- NOTE | 2022-02-04 19:29 | PC.NURSE ---
shift note: pt up indept. pt denies pain.
[2022-02-04 20:15] LABS: Potassium* 2.8 mmol/L (3.6-5.1)
[2022-02-05 03:00] VITALS: BP 143/106; PULSE 51; RESP 18; TEMP 36.9; O2SAT 92
--- NOTE | 2022-02-05 05:28 | PC.NURSE ---
[id number]: Patient pleasant and cooperative. Flat affect. Independent. Noted to be resting/sleeping in bed entire shift. Cramping in hand noted when taking BP. Patient verbalized this has been happening. Hand resumes normal positioning after BP are complete. Denies N/V/Dizziness. Denies CP/pressure. Tele reads sinus jennifer.
[2022-02-05] MEDS: ACETAMINOPHEN 650 MG TABLET ER 1300 MG PO (06:10)
[2022-02-05 06:27] LABS: Basophils Absolute Auto 0.03 K/uL (0.00-0.30); Basophils Percent Auto 0.4 % (0.0-3.0); Eosinophils Absolute Auto 0.14 K/uL (0.00-0.50); Eosinophils Percent Auto 1.7 % (0.0-7.0); Hematocrit 44.1 % (37.0-53.0); Immature Granulocytes Abs Auto 0.04 K/uL (0.00-0.30); Immature Granulocytes Pct Auto 0.5 %; Lymphocytes Absolute Auto 1.99 K/uL (0.90-2.90); Lymphocytes Percent Auto 24.5 % (20-44); Mean Corpuscular HGB Conc 34 gm/dL (32-36); Mean Corpuscular Hemoglobin 29 pg (26-34); Mean Corpuscular Volume 84 fL (80-100); Monocytes Percent Auto 8.1 % (0.0-11.0); Neutrophils Absolute Auto 5.27 K/uL (1.7-7.0); Neutrophils Percent Auto 64.8 % (42.0-72.0); Platelet Count* 331 K/uL (140-440); RDW Coefficient of Variation % 14.2 % (11.5-15.5); Red Blood Count 5.23 m/uL (4.30-5.90); White Blood Count* 8.13 K/uL (4.50-11.00)
[2022-02-05 06:28] LABS: Slide Review Reflex No
[2022-02-05 06:56] LABS: Chloride* 94 mmol/L (96-114); Sodium* 136 mmol/L (135-149)
[2022-02-05 06:58] LABS: Creatinine* 0.9 mg/dL (0.5-1.5); Est. Creatinine Clearance* 99.14; Estimated Glomerular Filt Rate 103 ml/min
[2022-02-05 06:59] LABS: Alanine Aminotransferase* 23 U/L (4-50); Alkaline Phosphatase* 91 U/L (40-150); Aspartate Amino Transferase* 29 U/L (12-35); Bilirubin Total* 0.9 mg/dL (0.1-1.5); Blood Urea Nitrogen* 15 mg/dL (7-30); Carbon Dioxide* 35 mmol/L (20-32); Glucose* 104 mg/dL (60-115)
[2022-02-05 07:00] VITALS: BP 176/102; PULSE 55; PULSE 56; RESP 18; TEMP 36.7; O2SAT 95
[2022-02-05 07:00] LABS: Calcium* 8.5 mg/dL (8.4-10.6); Magnesium* 1.8 mg/dL (1.5-2.6)
[2022-02-05 07:14] LABS: Potassium* 2.3 mmol/L (3.6-5.1)
[2022-02-05] MEDS: POTASSIUM BICARB 25 MEQ EFFERVESCENT TAB PO ×8 (08:01→18:08)
[2022-02-05] MEDS: buPROPion XL 150 MG TABLET 300 MG PO (09:00)
[2022-02-05] MEDS: OMEPRAZOLE 20 MG CAPSULE DR PO (09:00)
[2022-02-05] MEDS: SPIRONOLACTONE 100 MG TABLET PO (09:00)
[2022-02-05] MEDS: DULOXETINE 30 MG CAPSULE DR 60 MG PO (09:00)
[2022-02-05] MEDS: ARIPiprazole 10 MG TABLET 30 MG PO (09:00)
[2022-02-05] MEDS: ASPIRIN 81 MG TAB.CHEW PO (09:00)
[2022-02-05] MEDS: DULOXETINE 30 MG CAPSULE DR PO (09:00)
[2022-02-05] MEDS: MAGNESIUM OXIDE 400 MG TABLET PO (09:01)
[2022-02-05] MEDS: AMLODIPINE 10 MG TABLET PO (09:01)
[2022-02-05] MEDS: FERROUS SULFATE 325 MG TABLET PO (09:01)
[2022-02-05] MEDS: CLOPIDOGREL 75 MG TABLET PO (09:01)
[2022-02-05] MEDS: METOPROLOL SUCCINATE (XL) 100 MG TAB 200 MG PO (09:01)
[2022-02-05] MEDS: FUROSEMIDE 40 MG TABLET PO (09:01)
[2022-02-05] MEDS: TAMSULOSIN HCL 0.4 MG CAPSULE PO (09:01)
[2022-02-05] MEDS: LOSARTAN POTASSIUM 50 MG TABLET PO (09:01)
[2022-02-05 11:00] VITALS: BP 152/113; PULSE 54; RESP 18; TEMP 36.7; O2SAT 97
--- NOTE | 2022-02-05 14:45 | PM.IMPN1 ---
Progress Note: A&P Assessment and plan (1) History of CHF (congestive heart failure): Problem details: - repeat TTE 02/05 given recent COVID and concerns of orthopnea Status: Acute (2) Hypokalemia: Problem details: - Recurrent, combination of iatrogenic from Lasix and secondary to poor medication compliance - replace with effervescent potassium, patient tolerates well - increased dose of spironolactone on 02/05 to prevent recurrence - follow potassium and magnesium closely Status: Acute (3) Gastroesophageal reflux disease: Problem details: - continue home PPI Status: Acute Plan - per above - continue to follow electrolytes closely and anticipate discharge home tomorrow Subjective Date Seen: 02/05/22 Interval history: No acute events overnight. Patient's potassium remains low, despite replacement. We will increase supplementation, have increased his spironolactone today as well. Will obtain TTE today given his orthopnea present on admission. Exam Narrative: Exam Narrative: GEN: Alert and oriented, sitting comfortably in bed, eating a quesadilla for breakfast HEENT: Normal external ears, EOMIs bilaterally, dentition poor, baseline CV: RRR, soft systolic murmur without concerning features R: LCTA bilaterally without concerning wheezing, rales, or rhonchi Ext: wwp, no concerning edema Skin: No concerning skin lesions or rashes on exposed skin Neuro: No focal deficits Psych: Appropriate Const: Vital Signs, click to edit/add: Vital Signs - 24 hr 02/04/22 15:17 02/04/22 16:11 02/04/22 15:00 Temperature 97 F L 98.5 F Pulse Rate 54 L Pulse Rate [Apical ] 52 L 74 Respiratory Rate 20 18 Blood Pressure [Ri ght Arm] 142/99 H 117/99 H Pulse Oximetry 97 98 Oxygen Delivery Me thod Room Air Room Air 02/04/22 15:00 02/04/22 15:00 02/04/22 19:00 Temperature 98.1 F Pulse Rate Pulse Rate [Apical ] 74 51 L Respiratory Rate 18 18 18 Blood Pressure [Ri ght Arm] 141/80 H Pulse Oximetry 98 95 Oxygen Delivery Me thod Room Air Room Air 02/04/22 23:00 02/04/22 23:00 02/04/22 23:00 Temperature 98.2 F Pulse Rate 50 L Pulse Rate [Apical ] 60 Respiratory Rate 20 20 Blood Pressure [Ri ght Arm] 149/90 H Pulse Oximetry 94 94 Oxygen Delivery Me thod Room Air Room Air 02/04/22 23:00 02/05/22 03:00 02/05/22 07:00 Temperature 98.4 F Pulse Rate 55 L Pulse Rate [Apical ] 51 L 51 L Respiratory Rate 18 Blood Pressure [Ri ght Arm] 143/106 H Pulse Oximetry 92 Oxygen Delivery Me thod Room Air 02/05/22 07:00 02/05/22 07:00 02/05/22 07:00 Temperature 98.1 F Pulse Rate Pulse Rate [Apical ] 56 L 56 L Respiratory Rate 18 18 18 Blood Pressure [Ri ght Arm] 176/102 H Pulse Oximetry 95 95 Oxygen Delivery Me thod Room Air Room Air 02/05/22 11:00 Temperature 98.1 F Pulse Rate Pulse Rate [Apical ] 54 L Respiratory Rate 18 Blood Pressure [Ri ght Arm] 152/113 H Pulse Oximetry 97 Oxygen Delivery Me thod Room Air Labs Labs: Laboratory Results - last 24 hr 02/04/22 02/05/22 02/05/22 19:52 05:50 05:50 WBC 8.13 RBC 5.23 Hgb 15.0 Hct 44.1 MCV 84 MCH 29 MCHC 34 RDW Coeff of Linus 14.2 Plt Count 331 Neut % (Auto) 64.8 Lymph % (Auto) 24.5 [place] % (Auto) 8.1 Eos % (Auto) 1.7 Baso % (Auto) 0.4 Neut # (Auto) 5.27 Lymph # (Auto) 1.99 [place] # (Auto) 0.70 Eos # (Auto) 0.14 Baso # (Auto) 0.03 Abs Immat Gran (auto) 0.04 Imm/Tot Granulo (auto) 0.5 Sodium 136 Potassium 2.8 L* 2.3 L* Chloride 94 L Carbon Dioxide 35 H BUN 15 Creatinine 0.9 Estimated Creat Clear 99.14 Estimated GFR 103 Glucose 104 Calcium 8.5 Magnesium 1.8 Total Bilirubin 0.9 AST 29 ALT 23 Alkaline Phosphatase 91 Total Protein 7.0 Albumin 4.0
[2022-02-05 14:47] LABS: Potassium* 3.5 mmol/L (3.6-5.1)
[2022-02-05 15:00] VITALS: BP 138/80; PULSE 54; PULSE 57; RESP 18; TEMP 36.7; O2SAT 95
--- NOTE | 2022-02-05 18:12 | PC.NURSE ---
Patient pleasant and cooperative, alert and oriented. Pt. has a flat affect but converses normally when spoken to. Pt. is up Independently in room and to BR.?Pt. has been resting/sleeping on and off throughout shift and watched football when awake.? Pt. denies N/V/Dizziness or pain.?Pt. on tele reads sinus jennifer.?Pt. BP has been elevated this AM but says this is normal, and HR sinus jenniefr, pt states this is normal. MD increased Spiralactolone and BP at 1500 was 138/80.
[2022-02-05 19:30] VITALS: BP 130/95; PULSE 53; RESP 18; TEMP 36.9; O2SAT 96
[2022-02-05 23:00] VITALS: BP 133/95; PULSE 47; PULSE 53; PULSE 57; RESP 16; RESP 18; TEMP 36.6; O2SAT 95; O2SAT 96
[2022-02-06] VITALS (7 sets, daily range): BP systolic 121–158; BP diastolic 65–98; PULSE 48–56; RESP 18; TEMP 36.4–36.9; O2SAT 92–98
--- NOTE | 2022-02-06 05:30 | PC.NURSE ---
Shift note 109-07: Pt alert, up ad john, denies any pain. Tele remains SB. Pt hopes to DC home in am.
[2022-02-06] MEDS: OMEPRAZOLE 20 MG CAPSULE DR PO (06:51)
[2022-02-06 07:18] LABS: Chloride* 93 mmol/L (96-114); Sodium* 137 mmol/L (135-149)
[2022-02-06 07:20] LABS: Est. Creatinine Clearance* 89.22; Estimated Glomerular Filt Rate 91 ml/min
[2022-02-06 07:21] LABS: Blood Urea Nitrogen* 19 mg/dL (7-30); Calcium* 8.8 mg/dL (8.4-10.6); Carbon Dioxide* 35 mmol/L (20-32); Glucose* 101 mg/dL (60-115); Magnesium* 2.1 mg/dL (1.5-2.6)
[2022-02-06 07:27] LABS: Potassium* 2.7 mmol/L (3.6-5.1)
[2022-02-06] MEDS: POTASSIUM CHLORIDE 10 MEQ/100 ML PIGGYBACK 100 MEQ IVPB (08:57)
[2022-02-06] MEDS: buPROPion XL 150 MG TABLET 300 MG PO (09:00)
[2022-02-06] MEDS: FUROSEMIDE 40 MG TABLET PO (09:00)
[2022-02-06] MEDS: METOPROLOL SUCCINATE (XL) 100 MG TAB 200 MG PO (09:01)
[2022-02-06] MEDS: AMLODIPINE 10 MG TABLET PO (09:01)
[2022-02-06] MEDS: ASPIRIN 81 MG TAB.CHEW PO (09:01)
[2022-02-06] MEDS: MAGNESIUM OXIDE 400 MG TABLET PO (09:01)
[2022-02-06] MEDS: LOSARTAN POTASSIUM 50 MG TABLET PO (09:01)
[2022-02-06] MEDS: FERROUS SULFATE 325 MG TABLET PO (09:02)
[2022-02-06] MEDS: CLOPIDOGREL 75 MG TABLET PO (09:02)
[2022-02-06] MEDS: DULOXETINE 30 MG CAPSULE DR PO (09:03)
[2022-02-06] MEDS: POTASSIUM BICARB 25 MEQ EFFERVESCENT TAB PO ×8 (09:10→22:07)
[2022-02-06] MEDS: DULOXETINE 30 MG CAPSULE DR 60 MG PO (09:10)
[2022-02-06] MEDS: TAMSULOSIN HCL 0.4 MG CAPSULE PO (09:10)
[2022-02-06] MEDS: ARIPiprazole 10 MG TABLET 30 MG PO (09:11)
[2022-02-06] MEDS: SPIRONOLACTONE 100 MG TABLET PO (09:11)
[2022-02-06 14:29] LABS: Potassium* 3.2 mmol/L (3.6-5.1)
--- NOTE | 2022-02-06 14:35 | PM.IMPN1 ---
Progress Note: A&P Assessment and plan (1) History of CHF (congestive heart failure): Problem details: - stable, reassuring TTE results 02/05 Status: Acute (2) Hypokalemia: Problem details: - Recurrent, combination of iatrogenic from Lasix in addition to poor medication compliance - replace with effervescent potassium, patient tolerates well - increased dose of spironolactone on 02/05 to prevent recurrence - follow potassium and magnesium closely - normal Magnesium and TSH, no h/o villous adenoma. Will add folate to labs, consider repeat Nephrology consult (saw them 03/2021) if symptoms persist Status: Acute (3) Gastroesophageal reflux disease: Problem details: - continue home PPI Status: Acute Plan - per above - ASA and SCDs for ppx Subjective Date Seen: 02/06/22 Interval history: No acute events overnight. Patient's potassium remains low, despite improving to 3.5 yesterday afternoon with replacement. We will continue to increase supplementation, Spironolactone was increased on 02/05. TTE obtained 02/05 Final Impressions: 1. Normal LV size, moderately increased wall thickness, normal global systolic function with an estimated EF of 60 - 65%. 2. Right ventricular cavity size is normal, global systolic RV function is normal. 3. The aortic valve is not well visualized, no stenosis and moderate regurgitation. 4. 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 Exam Narrative: Exam Narrative: GEN: Alert and oriented HEENT: Normal external ears, EOMIs bilaterally, no scleral icterus CV: RRR, No concerning murmurs, rubs, or gallops R: LCTA bilaterally without concerning wheezing, rales, or rhonchi Ext: wwp, no concerning edema Skin: No concerning skin lesions or rashes on exposed skin Neuro: Nonfocal Psych: Appropriate Const: Vital Signs, click to edit/add: Vital Signs - 24 hr 02/05/22 15:00 02/05/22 15:00 02/05/22 15:00 Temperature 98.1 F Pulse Rate Pulse Rate [Apical ] 54 L 54 L Respiratory Rate 18 18 18 Blood Pressure [Ri ght Arm] 138/80 Pulse Oximetry 95 95 Oxygen Delivery Me thod Room Air Room Air 02/05/22 15:00 02/05/22 19:30 02/05/22 23:00 Temperature 98.4 F Pulse Rate 57 L 47 L Pulse Rate [Apical ] 53 L Respiratory Rate 18 Blood Pressure [Ri ght Arm] 130/95 H Pulse Oximetry 96 Oxygen Delivery Me thod Room Air 02/05/22 23:00 02/05/22 23:00 02/05/22 23:00 Temperature 97.9 F Pulse Rate Pulse Rate [Apical ] 53 L 57 L Respiratory Rate 18 16 Blood Pressure [Ri ght Arm] 133/95 H Pulse Oximetry 96 95 Oxygen Delivery Nd thod Room Air Room Air 02/06/22 03:00 02/06/22 07:00 02/06/22 07:00 Temperature 98.3 F Pulse Rate 48 L Pulse Rate [Apical ] 51 L 48 L Respiratory Rate 18 Blood Pressure [Ri ght Arm] 158/92 H Pulse Oximetry 98 Oxygen Delivery Nd thod Room Air 02/06/22 07:00 02/06/22 07:00 02/06/22 11:00 Temperature 98.5 F 98.5 F Pulse Rate Pulse Rate [Apical ] 49 L 54 L Respiratory Rate 18 18 18 Blood Pressure [Ri ght Arm] 138/81 144/98 H Pulse Oximetry 94 94 94 Oxygen Delivery Nd thod Room Air Room Air Room Air Labs Labs: Laboratory Results - last 24 hr 02/05/22 02/06/22 02/06/22 14:26 06:17 14:08 Sodium 137 Potassium 3.5 L 2.7 L* 3.2 L Chloride 93 L Carbon Dioxide 35 H BUN 19 Creatinine 1.0 Estimated Creat Clear 89.22 Estimated GFR 91 Glucose 101 Calcium 8.8 Magnesium 2.1
--- NOTE | 2022-02-06 19:48 | PC.NURSE ---
shift note: vss stable. pt denies pain. indept in room.
[2022-02-07] MEDS: POTASSIUM BICARB 25 MEQ EFFERVESCENT TAB PO ×2 (00:16→09:56)
[2022-02-07 00:21] VITALS: BP 144/89; PULSE 54; TEMP 36.4; O2SAT 94
[2022-02-07] MEDS: OMEPRAZOLE 20 MG CAPSULE DR PO (06:36)
[2022-02-07 07:00] VITALS: O2SAT 94
[2022-02-07 07:15] LABS: Basophils Absolute Auto 0.02 K/uL (0.00-0.30); Basophils Percent Auto 0.2 % (0.0-3.0); Eosinophils Absolute Auto 0.18 K/uL (0.00-0.50); Eosinophils Percent Auto 1.9 % (0.0-7.0); Hematocrit 49.2 % (37.0-53.0); Hemoglobin* 16.6 gm/dL (13.5-17.5); Immature Granulocytes Abs Auto 0.08 K/uL (0.00-0.30); Immature Granulocytes Pct Auto 0.8 %; Lymphocytes Absolute Auto 2.06 K/uL (0.90-2.90); Lymphocytes Percent Auto 21.5 % (20-44); Mean Corpuscular HGB Conc 34 gm/dL (32-36); Mean Corpuscular Hemoglobin 29 pg (26-34); Mean Corpuscular Volume 85 fL (80-100); Monocytes Percent Auto 7.5 % (0.0-11.0); Neutrophils Absolute Auto 6.54 K/uL (1.7-7.0); Neutrophils Percent Auto 68.1 % (42.0-72.0); Platelet Count* 432 K/uL (140-440); RDW Coefficient of Variation % 14.3 % (11.5-15.5)
[2022-02-07 07:28] LABS: Slide Review Reflex No
[2022-02-07 07:38] VITALS: PULSE 46
[2022-02-07 07:42] LABS: Albumin* 4.6 g/dL (3.3-5.0); Chloride* 93 mmol/L (96-114); Potassium* 3.4 mmol/L (3.6-5.1); Sodium* 137 mmol/L (135-149)
[2022-02-07 07:44] LABS: Creatinine* 1.1 mg/dL (0.5-1.5); Est. Creatinine Clearance* 81.11; Estimated Glomerular Filt Rate 81 ml/min
[2022-02-07 07:45] LABS: Alanine Aminotransferase* 25 U/L (4-50); Alkaline Phosphatase* 105 U/L (40-150); Aspartate Amino Transferase* 29 U/L (12-35); Bilirubin Total* 0.9 mg/dL (0.1-1.5); Blood Urea Nitrogen* 17 mg/dL (7-30); Calcium* 9.2 mg/dL (8.4-10.6); Carbon Dioxide* 38 mmol/L (20-32); Glucose* 119 mg/dL (60-115); Phosphorus* 3.4 mg/dL (2.5-4.5); Total Protein* 8.2 g/dL (6.0-8.3)
[2022-02-07 07:46] LABS: Magnesium* 2.1 mg/dL (1.5-2.6)
[2022-02-07 08:00] VITALS: BP 137/95; PULSE 54; RESP 12; TEMP 36.4; O2SAT 94
[2022-02-07] MEDS: ARIPiprazole 10 MG TABLET 30 MG PO (09:35)
[2022-02-07] MEDS: SPIRONOLACTONE 100 MG TABLET PO (09:36)
[2022-02-07] MEDS: ASPIRIN 81 MG TAB.CHEW PO (09:37)
[2022-02-07] MEDS: CLOPIDOGREL 75 MG TABLET PO (09:37)
[2022-02-07] MEDS: TAMSULOSIN HCL 0.4 MG CAPSULE PO (09:38)
[2022-02-07] MEDS: MAGNESIUM OXIDE 400 MG TABLET PO (09:38)
[2022-02-07] MEDS: buPROPion XL 150 MG TABLET 300 MG PO (09:40)
[2022-02-07] MEDS: METOPROLOL SUCCINATE (XL) 100 MG TAB 200 MG PO (09:40)
[2022-02-07] MEDS: AMLODIPINE 10 MG TABLET PO (09:41)
[2022-02-07] MEDS: FUROSEMIDE 20 MG TABLET PO (09:42)
[2022-02-07] MEDS: FERROUS SULFATE 325 MG TABLET PO (09:44)
[2022-02-07] MEDS: LOSARTAN POTASSIUM 50 MG TABLET PO (09:44)
--- NOTE | 2022-02-07 09:47 | PM.DS1 ---
DS: Providers Provider Date Seen: 02/07/22 Date of admission: 02/04/22 14:05 Primary care physician: Poli Street MD Admitting Clinician: Jessenai Richard MD Attending Physician on discharge: Jessenia Richard MD Date of Discharge: 02/07/22 DS: Diagnosis Discharge Diagnosis (1) Hypokalemia: Status: Acute Problem details: - Recurrent, likely combination of iatrogenic from Lasix in addition to poor medication compliance - replaced with effervescent potassium, patient tolerates well - increased dose of spironolactone on 02/05 to prevent recurrence - follow potassium and magnesium closely - normal Magnesium and TSH, no h/o villous adenoma. Will add folate to labs, consider repeat Nephrology consult (saw them inpatient 03/2021) if symptoms persist (2) History of CHF (congestive heart failure): Status: Acute Problem details: - stable, reassuring TTE results 02/05 DS: Summary Hospital Course Hospital Course: 51-year-old male admitted to the hospital for recurrent hypokalemia; likely secondary to a combination of iatrogenic from a Lasix use and also secondary to poor compliance with outpatient potassium replacement (patient does not like taste of pills). He did well with effervescent replacement during stay; unfortunately, did take quite some time 1st potassium to get above 3. Because of this, we increased his spironolactone and decreased his Lasix (on both of these for history of CHF). See below for formal medication changes. Effervescent potassium tablets are not covered by insurance; will continue his current replacement of 40 mg b.i.d. and recommend taking with applesauce or yogurt to minimize side effects. TTE repeated during stay, stable. Patient verbalized understanding of discharge plan, stable and appropriate for discharge home on 02/07/2022, with close PCP follow-up and BMP later this week. Status at Discharge Functional status at discharge: independent ambulation Overall status at discharge: patient is back to baseline Time Spent with Patient Time attestation: Total time spent providing and/or coordinating discharge services: Time spent: Greater than 30 minutes Specific discharge activities: medication reconciliation and new prescriptions Exam Narrative: Exam Narrative: GEN: Alert and oriented, nontoxic in appearance HEENT: Normal external ears, EOMIs bilaterally CV: RRR, No concerning murmurs, rubs, or gallops R: LCTA bilaterally without concerning wheezing, rales, or rhonchi Ext: wwp, trace edema bilateral ankles Skin: No concerning skin lesions or rashes on exposed skin Neuro: Nonfocal Psych: Appropriate Const: Vital Signs, click to edit/add: Vital Signs - 24 hr 02/06/22 11:00 02/06/22 15:00 02/06/22 15:00 Temperature 98.5 F 97.9 F Pulse Rate Pulse Rate [Apical ] 54 L 54 L Respiratory Rate 18 18 Blood Pressure [Ri ght Arm] 144/98 H 137/82 Pulse Oximetry 94 92 92 Oxygen Delivery Me thod Room Air Room Air Room Air 02/06/22 15:28 02/06/22 20:15 02/07/22 00:21 Temperature 97.5 F L 97.6 F Pulse Rate 56 L Pulse Rate [Apical ] 56 L 54 L Respiratory Rate 18 Blood Pressure [Ri ght Arm] 121/65 144/89 H Pulse Oximetry 94 94 Oxygen Delivery Me thod Room Air Room Air 02/06/22 23:00 02/07/22 07:38 Temperature Pulse Rate 46 L Pulse Rate [Apical ] Respiratory Rate Blood Pressure [Ri ght Arm] Pulse Oximetry 93 Oxygen Delivery Me thod Room Air DS: Data Data Completed and Pending Labs on day of discharge: Labs from last 24 hours 02/07/22 02/07/22 02/06/22 06:55 06:55 14:08 WBC 9.60 RBC 5.80 Hgb 16.6 Hct 49.2 MCV 85 MCH 29 MCHC 34 RDW Coeff of Linus 14.3 Plt Count 432 Neut % (Auto) 68.1 Lymph % (Auto) 21.5 [place] % (Auto) 7.5 Eos % (Auto) 1.9 Baso % (Auto) 0.2 Neut # (Auto) 6.54 Lymph # (Auto) 2.06 [place] # (Auto) 0.70 Eos # (Auto) 0.18 Baso # (Auto) 0.02 Abs Immat Gran (auto) 0.08 Imm/Tot Granulo (auto) 0.8 Sodium 137 Potassium 3.4 L Chloride 93 L Carbon Dioxide 38 H BUN 17 Creatinine 1.1 Estimated Creat Clear 81.11 Estimated GFR 81 Glucose 119 H Calcium 9.2 Phosphorus 3.4 Magnesium 2.1 Total Bilirubin 0.9 AST 29 ALT 25 Alkaline Phosphatase 105 Total Protein 8.2 Albumin 4.6 RBC Fol Alexandr for Serum Pending 02/06/22 14:08 WBC RBC Hgb Hct MCV MCH MCHC RDW Coeff of Linus Plt Count Neut % (Auto) Lymph % (Auto) [place] % (Auto) Eos % (Auto) Baso % (Auto) Neut # (Auto) Lymph # (Auto) [place] # (Auto) Eos # (Auto) Baso # (Auto) Abs Immat Gran (auto) Imm/Tot Granulo (auto) Sodium Potassium 3.2 L Chloride Carbon Dioxide BUN Creatinine Estimated Creat Clear Estimated GFR Glucose Calcium Phosphorus Magnesium Total Bilirubin AST ALT Alkaline Phosphatase Total Protein Albumin RBC Fol Alexandr for Serum Discharge Plan Discharge Disposition: Home, Self-Care Date of Admission: 02/04/22 14:05 Attending Provider on Discharge: Jessenia Richard Primary Care Provider: Poli Street Condition: Improved Anticipated Discharge Date/Time: 02/07/22 12:00 Discharge Medications: New spironolactone 100 mg Tablet 100 mg PO DAILY Qty: 30 0RF Rx Instructions: please note dose increase furosemide [Lasix] 20 mg tablet 20 mg PO DAILY Qty: 30 0RF Continued zolpidem 10 mg tablet 10 mg PO HS PRN aspirin 81 mg tablet,chewable 1 tab PO DAILY potassium chloride 20 mEq tablet,ER particles/crystals 40 meq PO BID ferrous sulfate 325 mg (65 mg iron) tablet 325 mg PO QDAY metoprolol succinate 200 mg tablet extended release 24 hr 200 mg PO DAILY losartan 50 mg tablet 50 mg PO DAILY omeprazole 20 mg capsule,delayed release(DR/EC) 20 mg PO DAILY clopidogrel 75 mg tablet 75 mg PO DAILY tamsulosin 0.4 mg capsule 0.4 mg PO DAILY amlodipine 10 mg tablet 10 mg PO DAILY magnesium oxide 400 mg (241.3 mg magnesium) tablet 400 mg PO QDAY tadalafil 20 mg tablet 20 mg PO .As Needed PRN Rx Instructions: TAKE ONE TABLET 30 MIN TO 36 HRS PRIOR TO INTERCOURSE nitroglycerin 0.4 mg tablet, sublingual 0.4 mg sublingual .As Needed as needed PRN duloxetine 30 mg capsule,delayed release(DR/EC) 30 mg PO QAM Rx Instructions: total dose 90 mg duloxetine 60 mg capsule,delayed release(DR/EC) 60 mg PO QAM Rx Instructions: Takes 90mg in the morning bupropion HCl 300 mg tablet extended release 24 hr 300 mg PO DAILY Qty: 90 1RF aripiprazole 30 mg tablet 30 mg PO DAILY Qty: 90 0RF Discontinued furosemide 40 mg tablet 40 mg PO DAILY spironolactone 50 mg tablet 50 mg PO DAILY Discharge Orders: Discharge Order (Routine); Ordered 02/07/22 Ordered By: Jessenia Richard Patient Education: Hypokalemia (DC) Additional Instructions: MEDICATION CHANGES: - INCREASE Spironolactone from 50mg to 100mg daily (this can help increase your potassium) - DECREASE Lasix from 40 to 20mg daily - Stay on Potassium 40meq TWICE PER DAY (take with applesauce or yogurt) - See Dr. Street later this week with labs at that time Activity Level: Activity as Tolerated Discharge Diet: Regular and Heart Healthy (2 gm sodium, low fat) Follow Up Appointments: Poli Street MD [Primary Care Provider] - 02/10/22 9:00 am (BMP at appt) Forms: [facility] Info Instructions
[2022-02-07] MEDS: DULOXETINE 30 MG CAPSULE DR PO (09:55)
[2022-02-07] MEDS: DULOXETINE 30 MG CAPSULE DR 60 MG PO (09:56)
[2022-02-07 10:36] VITALS: BP 125/69; PULSE 46; RESP 12; TEMP 36.4
--- NOTE | 2022-02-07 12:33 | PC.NURSE ---
Patient Ind, tolerated am dose of potassium, reviewed discharge instructions including medication changes, patient denied questions or concerns. D/C home via .
[2022-02-08 10:48] LABS: Folate, Serum 4.2 ng/mL (>=5.9)
== END 2022-02-07 11:30 | disposition home or self-care (01) | DRG 425 ==
LOC: ED 10:42 → MEDSURG 12:27
PROVIDERS: Admitting Provider Family Medicine; Emergency Provider Emergency Medicine; PCP Family Medicine; Visit Provider Family Medicine
DX: E87.6 Hypokalemia (principal); Z91.14 Patient's other noncompliance with medication regimen; T50.1X5A Adverse effect of loop [high-ceiling] diuretics, initial encounter; Z91.128 Patient's intentional underdosing of medication regimen for other reason; T50.3X6A Underdosing of electrolytic, caloric and water-balance agents, initial encounter; R06.01 Orthopnea; I11.0 Hypertensive heart disease with heart failure; I50.9 Heart failure, unspecified; F41.1 Generalized anxiety disorder; K21.9 Gastro-esophageal reflux disease without esophagitis; Z86.16 Personal history of COVID-19; N52.9 Male erectile dysfunction, unspecified; I25.2 Old myocardial infarction; E78.5 Hyperlipidemia, unspecified; F33.9 Major depressive disorder, recurrent, unspecified
CPT/HCPCS: 36415; 71045; 80048; 80053; 80076; 82746; 83735; 83880; 84100; 84132; 84443; 84484; 85025; 85379; 86140; 87426; 93005; 93306; 94761; 99284; 99285; A9270; J3480; J7030

== ENCOUNTER 2022-02-10 08:55 | Outpatient (CLI) | payer BC, SELFPAY ==
--- OUTSIDE RECORDS SUMMARY | 2022-02-10 08:57 | XMS_ITS | Clinical Summary ---
:1970 Author Organization [employer] [facility] [place] [address] Care Team Providers Name Role Phone Pcp, [...] depressive disorder, recurrent episode, mild 8 08/31/2008 Encounters Date Type Specialty Care Team Description 02/05/2022 Orders Only <No scans attac hed> from Last 3 Months Immunizations Name Administration Dates Next Due Tdap [...] Comments Blood Pressure 114/72 04/06/2021 12:19 PM OFFAL TRIMMER Pulse 63 04/06/2021 12:19 PM OFFAL TRIMMER Temperature 36.4 ??C (97.6 ??F) 04/06/2021 12:19 PM OFFAL TRIMMER Respiratory Rate 16 04/06/2021 12:19 PM OFFAL TRIMMER Oxygen Saturation 96% 04/06/2021 12:19 PM OFFAL TRIMMER Inhaled Oxygen Concentration - - Weight 91.6 kg (201 lb 15.1 oz) 04/06/2021 6:00 AM OFFAL TRIMMER Height 177.8 cm (5' 10) 04/04/2021 12:30 PM OFFAL TRIMMER Body Mass Index 28.98 04/04/2021 12:30 PM OFFAL TRIMMER Plan of Treatment Health Maintenance Due Date [...] 01/21/2013, Additional history exists Tdap Completed 11/02/2010 Procedures Procedure Name Priority Date/Time Associated Diagnosis Comme nts ECHO COMPLETE WO Routine 02/05/2022 4:37 PM Orthopnea Resul ts for this CONTRAST OFFAL TRIMMER procedure are i n the results section. from Last 3 Months Results ECHO COMPLETE WO CONTRAST (02/05/2022 4:37 PM OFFAL TRIMMER) P athologist Signature AORTIC VALVE 6 mmHg MEAN PG EJECTION 71 % FRACTION LVEDD 4.5 cm EJECTION 60 - 65% FRACTION Anatomical Region Laterality Modality HEART Ultrasound Specimen (Source) Anatomical Collection Method Collection Time Re ceived Time Location / / Volume Laterality 02/05/2022 2:53 PM OFFAL TRIMMER Narrative 02/05/2022 4:57 PM OFFAL TRIMMER ECHOCARDIOGRAM SANG Fanny ALVA ? Accessi on#: ?? [id number] : ?1970 51 years Study Date: ?? 02/05/2022 2:53:44 PM Gender: M ?BP: ? 152/113 mmHg Height: 178.00 cm ?BSA: ?2.22 m? ?? Weight: 105.00 kg ?Tech: ? MJS ? Referring MD: JESSENIA LOPEZ Site: ? [facility] Reading Location: [facility] Procedure: 2D, Color Doppler and Spectra l Doppler. Indication for study: ORTHOPNEA Cardiac Rhythm: Regular.Study quality: F air. Final Impressions: 1. Normal LV size, moderately increased wall thickness, normal global systolic function with an estimated EF of 60 - 65%. 2. Right ventricular cavity size is nor mal, global systolic RV function is normal. 3. The aortic valve is not well visuali zed, no stenosis and moderate regurgitation. 4. 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 Chamber Sizes and Function Normal left ventricular size, moderately increased wall thickness, normal global systolic function with an estimated EF of 60 - 65%. Left atrial size is normal. Right ventricular cavity size is normal, global systolic RV function is normal. T he right atrium is normal. Right atrial volume index is 20 ml/m? ??. Right atrial area is 15 cm? ??. The pulmonary artery is not well visualized. The sinus of Kate soraida is dilated. The ascending aorta is normal sized. Valves, RV Pressures and Diastolic Funct ion The aortic valve is not well visualized , no stenosis and moderate regurgitation. The mitral valve is normal in structure, trace mitral regurgitation. Indeterminate pattern of LV diastolic filling. The tricuspid valve is normal in structure. Tricuspid regurgitation is trace regurgitation. The pulmonic valve is not well visualized. No pulmonary regurgitation. TTE images do not appear adequate for transcather intervention with patient supine. Masses, Effusion, Shunts There is no pericardial effusion. The in ferior vena cava is normal sized, respiratory size variation not well visualized. No left to right shunting was detected by limited color flow Doppler interrogation of the interatrial septum. MEASUREMENTS AND CALCULATIONS 2-D Measurements and LV Function: LVID (d) 4.5 cm LV FS% (2D) ?? 42 % LVID (s) 2.6 cm LVOT diameter 2.2 cm IVS (d) ??1.6 cm HR ?55 bpm LVPW (d) 1.3 cm LA Vol index ??29 ml/m2 Ao Sinus 4.4 cm RA Vol index ??20 ml/m2 Asc Ao ?? 3.7 cm RA area ? 15 cm? ?? LA ? 4.1 cm RV Max 4C (d) 2.9 cm Diastology: Mitral E Peak 0.8 m/s A Peak 0.5 m/s E/A ?1.4 DT ? 250 msec Aortic Valve: Vmax ? 1.7 m/s ??HOLLIE (V) ?? 2.56 cm? AI P 1/2 940 msec VTI ?0.36 m ?? HOLLIE (I) ?? 3.18 cm? AI Vol ?? 36 ml LVOT V max 1.2 m/s ??Max PG ?11 mmHg LVOT VTI ?? 0.30 m ?? Mean PG ?? 6 mmHg SV ? 113 ml ?? Dim Index 0.85 SV index ?? 51 ml/m? ?? CO ?6.2 l/min ?CI ?2.8 l/min/m? ?? Mitral Valve: MVA ?3.0 cm? ?? MV P 1/2 73 msec Tricuspid Valve and estimated PA pressur es: TAPSE 2.6 cm . This study was interpreted by an [facility] redited facility. CC: [facility] [place], [facility]/ Surg - IP [facility]. ??Final ?? Procedure Note Poli Canchola MD - 02/05/2022 ECHOCARDIOGRAM SANG ALVA : 1970 51 years Study Date: 01/12 2:53:44 PM Gender: M BP: 152/113 mmHg Height: 178.00 cm BSA: 2.22 m? ?? Weight: 105.00 kg Tech: KRISTEN Referring MD: JESSENIA LOPEZ Site: [facility] Reading Location: [facility] Procedure: 2D, Color Doppler and Spectra l Doppler. Indication for study: ORTHOPNEA Cardiac Rhythm: Regular.Study quality: F air. Final Impressions: 1. Normal LV size, moderately increased wall thickness, normal global systolic function with an estimated EF of 60 - 65%. 2. Right ventricular cavity size is nor mal, global systolic RV function is normal. 3. The aortic valve is not well visuali zed, no stenosis and moderate regurgitation. 4. 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 Chamber Sizes and Function Normal left ventricular size, moderately increased wall thickness, normal global systolic function with an estimated EF of 60 - 65%. Left atrial size is normal. Right ventricular cavity size is normal, global systolic RV function is normal. The right atrium is normal. Right atrial volume index is 20 ml/m? ??. Right atrial area is 15 cm? ??. The pulmonary artery is not well visualized. The sinus of Valsalva is dilat ed. The ascending aorta is normal sized. Valves, RV Pressures and Diastolic Funct ion The aortic valve is not well visualized , no stenosis and moderate regurgitation. The mitral valve is normal in structure, trace mitral regurgitation. Indeterminate pattern of LV diastolic filling. The tricuspid valve is normal in structure. Tricuspid regurgitation is trace regurgitation. The pulmonic valve is not well visualized. No pulmonary regurgitation. TTE images do not appear adequate for transcather intervention with patient supine. Masses, Effusion, Shunts There is no pericardial effusion. The in ferior vena cava is normal sized, respiratory size variation not well visualized. No left to right shunting was detected by limited color flow Doppler interrogation of the interatrial septum. MEASUREMENTS AND CALCULATIONS 2-D Measurements and LV Function: LVID (d) 4.5 cm LV FS% (2D) 42 % LVID (s) 2.6 cm LVOT diameter 2.2 cm IVS (d) 1.6 cm HR 55 bpm LVPW (d) 1.3 cm LA Vol index 29 ml/m2 Ao Sinus 4.4 cm RA Vol index 20 ml/m2 Asc Ao 3.7 cm RA area 15 cm? ?? LA 4.1 cm RV Max 4C (d) 2.9 cm Diastology: Mitral E Peak 0.8 m/s A Peak 0.5 m/s E/A 1.4 DT 250 msec Aortic Valve: Vmax 1.7 m/s HOLLIE (V) 2.56 cm? ?? AI P 1/2 940 msec VTI 0.36 m HOLLIE (I) 3.18 cm? ?? AI Vol 36 ml LVOT V max 1.2 m/s Max PG 11 mmHg LVOT VTI 0.30 m Mean PG 6 mmHg SV 113 ml Dim Index 0.85 SV index 51 ml/m? ?? CO 6.2 l/min CI 2.8 l/min/m? ?? Mitral Valve: MVA 3.0 cm? ?? MV P 1/2 73 msec Tricuspid Valve and estimated PA pressur es: TAPSE 2.6 cm . This study was interpreted by an [facility] redited facility. CC: [facility] [place], Med/ Surg - IP [facility]. Final Jessenia Lopez MD ECHO ORD from Last 3 Months Insurance Payer Benefit Plan / Subscriber ID Effective Dates Phone Addre ss Type Group BLUE CROSS BL[employer] OF [id number] 2019-Present [address] [place] [address] Advance Directives Latest Code Status on File [...] 9:23 PM 06/14/2019 9:23 PM Care Teams Almond Paste Molder Relationship Specialty Start Date End Date Pcp, No PCP - General 12/04/21 .
[2022-02-10 15:56] LABS: Basophils Absolute Auto 0.02 K/uL (0.00-0.30); Basophils Percent Auto 0.2 % (0.0-3.0); Eosinophils Absolute Auto 0.15 K/uL (0.00-0.50); Eosinophils Percent Auto 1.4 % (0.0-7.0); Hematocrit 47.7 % (37.0-53.0); Immature Granulocytes Abs Auto 0.04 K/uL (0.00-0.30); Immature Granulocytes Pct Auto 0.4 %; Lymphocytes Absolute Auto 2.55 K/uL (0.90-2.90); Lymphocytes Percent Auto 24.6 % (20-44); Mean Corpuscular HGB Conc 34 gm/dL (32-36); Mean Corpuscular Hemoglobin 29 pg (26-34); Mean Corpuscular Volume 87 fL (80-100); Monocytes Percent Auto 7.4 % (0.0-11.0); Neutrophils Absolute Auto 6.85 K/uL (1.7-7.0); Platelet Count* 443 K/uL (140-440); RDW Coefficient of Variation % 14.4 % (11.5-15.5); Red Blood Count 5.46 m/uL (4.30-5.90); White Blood Count* 10.38 K/uL (4.50-11.00)
[2022-02-10 16:30] LABS: Slide Review Reflex No
[2022-02-10 16:55] LABS: Chloride* 97 mmol/L (96-114); Sodium* 137 mmol/L (135-149)
[2022-02-10 16:56] LABS: Potassium* 3.7 mmol/L (3.6-5.1)
[2022-02-10 16:58] LABS: Carbon Dioxide* 29 mmol/L (20-32); Creatinine* 1.2 mg/dL (0.5-1.5); Estimated Glomerular Filt Rate 73 ml/min
[2022-02-10 16:59] LABS: Blood Urea Nitrogen* 14 mg/dL (7-30); Calcium* 9.4 mg/dL (8.4-10.6); Glucose* 93 mg/dL (60-115)
== END 2022-02-10 08:56 | disposition home or self-care (01) ==
PROVIDERS: PCP Family Medicine; Visit Provider Family Medicine
DX: E87.6 Hypokalemia (principal); I10 Essential (primary) hypertension; Z12.5 Encounter for screening for malignant neoplasm of prostate
CPT/HCPCS: 80048; 84153; 85025

== ENCOUNTER 2022-04-08 16:25 | Emergency (ER) | payer BC, SELFPAY ==
[2022-04-08] VITALS (17 sets, daily range): BP systolic 110–137; BP diastolic 72–94; PULSE 50–66; RESP 16; TEMP 36.4; O2SAT 93–98; BMI 33.0
--- NOTE | 2022-04-08 17:09 | CRLHL7_ITS ---
For Patients: As a result of the Century Cures Act, medical imaging exams and procedure reports are released immediately into your electronic medical record. You may view this report before your referring provider. If you have questions, please contact your health care provider. INDICATION: Pain. TECHNIQUE: CT abdomen and pelvis acquired with 100 mL of Isovue 370 IV contrast. COMPARISON: 04/01/2021 FINDINGS: Lower chest: Normal heart size. Coronary artery calcifications. No pericardial effusion. Lung bases are essentially clear. Liver: Fatty liver. Spleen: Normal size. Pancreas: No acute inflammatory changes. Gallbladder and bile ducts: No calcified stones. No significant bile duct dilatation. Kidneys: A few small low-density lesions in the left kidney are too small to accurately characterize but likely related to benign cysts. No hydronephrosis. Adrenal glands: No mass. GI tract: There is mild to moderately dilated mid to distal small bowel, which contain multiple air-fluid levels. There are multiple short segments of abnormal mucosal enhancement with mild circumferential bowel wall thickening, with resultant luminal narrowing, seen in the mid, distal, and terminal ileum. No pneumatosis. Small metallic density is seen the lumen of the distal ileum, just proximal to the terminal ileum, which is presumed related to an ingested foreign body. Appendix is normal. There is a moderate amount of fluid in the cecum and proximal to mid ascending colon, with the remainder the colon relatively decompressed. Vascular structures: Normal caliber abdominal aorta. Mild atherosclerotic changes. Lymph nodes: No pathologically enlarged lymph nodes based on size criteria. Miscellaneous: No free air. Trace free fluid is likely reactive to the above findings. Pelvic Organs: Prostate is mildly enlarged. No appreciable urinary bladder wall mass. Bones: No acute abnormality. IMPRESSION: 1. There is mild to mildly dilated fluid-filled small bowel with multiple segments of abnormal circumferential bowel wall thickening with associated mucosal thickening and hyperenhancement, resulting in luminal narrowing. This results in mild to moderately dilated mid and distal small bowel, suggesting a low-grade partial small bowel obstruction. The small bowel changes are most suggestive of an inflammatory process such as Crohn`s disease. Clinically correlate. 2. Other findings as noted above. Please note that all CT scans at this facility use dose modulation, iterative reconstruction, and/or weight-based dosing when appropriate to reduce radiation dose to as low as reasonably achievable. Dictated by Martir Nguyen MD @ 04/08/2022 7:11:14 PM (Electronically Signed)
--- NOTE | 2022-04-08 17:27 | ED_ITS ---
HPI - Abdominal Pain General Chief Complaint: Abdominal Pain Stated Complaint: Stomache pain, trouble urinating Time Seen by Provider: 04/08/22 17:02 History of Present Illness HPI narrative: This patient comes in reporting abdominal pain over the past 3 days. He states that he has not been able to pass urine over the past day. He does not care to take food or drink. He has trouble sleeping because of these symptoms. Related Data Home Medications Medication Instructions Recorded Confirmed amlodipine 10 mg tablet 10 mg PO DAILY 09/22/21 02/10/22 aspirin 81 mg chewable tablet 1 tab PO DAILY 09/22/21 02/10/22 clopidogrel 75 mg tablet 75 mg PO DAILY 09/22/21 02/10/22 ferrous sulfate 325 mg (65 mg 325 mg PO QDAY 09/22/21 02/10/22 iron) tablet losartan 50 mg tablet 50 mg PO DAILY 09/22/21 02/10/22 magnesium oxide 400 mg (241.3 mg 400 mg PO QDAY 09/22/21 02/10/22 magnesium) tablet metoprolol succinate 200 mg 200 mg PO DAILY 09/22/21 02/10/22 tablet,extended release 24 hr omeprazole 20 mg capsule,delayed 20 mg PO DAILY 09/22/21 02/10/22 release tadalafil 20 mg tablet 20 mg PO .As Needed PRN 09/22/21 02/10/22 tamsulosin 0.4 mg capsule 0.4 mg PO DAILY 09/22/21 02/10/22 zolpidem 10 mg tablet 10 mg PO HS PRN 09/22/21 02/10/22 duloxetine 30 mg capsule,delayed 30 mg PO QAM 01/26/22 02/10/22 release duloxetine 60 mg capsule,delayed 60 mg PO QAM 01/26/22 02/10/22 release nitroglycerin 0.4 mg sublingual 0.4 mg sublingual .As Needed as 01/26/22 02/10/22 tablet needed PRN potassium chloride 20 mEq 40 meq PO BID 02/10/22 02/10/22 tablet,extended release(part/cryst) Previous Rx's Medication Instructions Recorded bupropion HCl 300 mg 24 hr tablet, 300 mg PO DAILY #90 tabs 11/03/21 extended release aripiprazole 30 mg tablet 30 mg PO DAILY #90 tabs 10/17/22 furosemide 20 mg tablet (Lasix) 20 mg PO DAILY #30 tabs 02/07/22 spironolactone 100 mg tablet 100 mg PO DAILY #30 tabs 02/07/22 potassium bicarbonate-citric acid 40 meq PO BID #120 ea 02/11/22 20 mEq effervescent tablet Allergies Allergy/AdvReac Type Severity Reaction Status Date / Time ciprofloxacin Allergy Severe violently Verified 02/10/22 09:03 ill rosuvastatin Allergy Unknown shutting Verified 02/10/22 09:03 kidneys down triamterene [From Maxzide] AdvReac Intermediate Verified 02/10/22 09:03 hydrochlorothiazide AdvReac Verified 02/10/22 09:03 Review of Systems Status of ROS Reports: 10 or more systems reviewed and unremarkable except as noted in History and below Narrative Constitutional: No fevers, no weight gain or loss. Eyes: No discharge. No vision changes. HENT: No congestion, no sore throat, no ear pain. Cardiovascular: No chest pain, no palpitations. Respiratory: No shortness of breath, no wheezes, no cough. Gastrointestinal: Diffuse abdominal pain. Genitourinary: Urinary retention. Musculoskeletal: Normal range of motion. Skin: No rashes, no pruritis. Neurological: No dizziness, weakness, sensory change, speech change. Endo/Heme/Allergies: No bruising or bleeding. No polydipsia. Pysch: no suicidality, no anxiety, no insomnia. All other systems reviewed and are negative. [facility] Medical History (Updated 04/08/22 @ 21:28 by Esvin Plaza MD) ASCVD (arteriosclerotic cardiovascular disease) Daily headache Erectile dysfunction Gastroesophageal reflux disease Generalized anxiety disorder History of CHF (congestive heart failure) History of colonic polyps Hyperlipidemia Hypertension Hypokalemia Iron deficiency anemia due to chronic blood loss Melena Moderate episode of recurrent major depressive disorder (08/31/08) ST elevation myocardial infarction (STEMI) (06/15/19) Family History Family/Other Stroke Prostate cancer Father High blood pressure Lung cancer Type 1 diabetes mellitus Daughter Anxiety Social History Narrative: tobacco use , 2 kids, 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, smoker, no EtOH Smoking Status: Former smoker Do you use any of these nicotine containing products: None Second hand tobacco smoke exposure: No How often do you have a drink containing alcohol: never AUDIT-C Alcohol total score: 0 Non-prescribed substance use: denies use Little interest or pleasure in doing things: not at all Feeling down, depressed, or hopeless: not at all service: No Exam Narrative: Exam Narrative: Constitutional: Well-developed, well-nourished, no acute distress. HEENT: Normocephalic, atraumatic. Neck: Normal range of motion. Nontender. Supple. Heart: Regular. No murmurs. Normal rate. Intact distal pulses. Lungs: Clear to auscultation. No chest discomfort. No wheezes, rhonchi, or rales. Abdomen: Normal bowel sounds. Diffuse tenderness, left greater than right. Rebound tenderness is present. Genitalia: Deferred. Back: No midline tenderness. Normal range of motion. Extremities: Normal range of motion. No injury. Skin: Intact. No rash. Warm. No erythema or pallor. Neurologic: No altered sensation. No weakness. Alert and oriented. Psychiatric: No suicidality. No anxiety or depression. No insomnia. Nursing notes and vitals signs are reviewed. Const: Vital Signs, click to edit/add: Vital Signs - 24 hr 04/08/22 16:51 04/08/22 19:04 04/08/22 19:05 Temperature 97.6 F Pulse Rate 51 L 50 L Pulse Rate [Right Pulse Oximeter] 60 Respiratory Rate 16 Blood Pressure 110/78 Blood Pressure [Ri ght Upper Arm] 126/94 H Pulse Oximetry 97 96 94 Oxygen Delivery Ma thod Room Air 04/08/22 19:15 04/08/22 19:30 04/08/22 19:32 Temperature Pulse Rate 51 L 53 L 52 L Pulse Rate [Right Pulse Oximeter] Respiratory Rate Blood Pressure 116/72 Blood Pressure [Ri ght Upper Arm] Pulse Oximetry 94 94 95 Oxygen Delivery Ma thod 04/08/22 19:45 04/08/22 20:00 04/08/22 20:01 Temperature Pulse Rate 50 L 50 L 52 L Pulse Rate [Right Pulse Oximeter] Respiratory Rate Blood Pressure 116/74 Blood Pressure [Ri ght Upper Arm] Pulse Oximetry 95 95 93 Oxygen Delivery Ma thod 04/08/22 20:15 04/08/22 20:30 04/08/22 20:31 Temperature Pulse Rate 52 L 51 L 51 L Pulse Rate [Right Pulse Oximeter] Respiratory Rate Blood Pressure 122/77 Blood Pressure [Ri ght Upper Arm] Pulse Oximetry 96 96 93 Oxygen Delivery Me thod 04/08/22 20:45 04/08/22 21:00 04/08/22 21:03 Temperature Pulse Rate 66 52 L 55 L Pulse Rate [Right Pulse Oximeter] Respiratory Rate Blood Pressure 137/90 H Blood Pressure [Ri ght Upper Arm] Pulse Oximetry 96 98 97 Oxygen Delivery Me thod 04/08/22 21:15 Temperature Pulse Rate 55 L Pulse Rate [Right Pulse Oximeter] Respiratory Rate Blood Pressure Blood Pressure [Ri ght Upper Arm] Pulse Oximetry 97 Oxygen Delivery Me thod Course Vital Signs Vital signs: Initial Vital Signs Temperature 97.6 F 04/08/22 16:51 Temperature Source Temporal Artery Scan 04/08/22 16:51 Pulse Rate 60 04/08/22 16:51 Pulse Rhythm 04/08/22 16:51 Respiratory Rate 16 04/08/22 16:51 Blood Pressure 126/94 H 04/08/22 16:51 Blood Pressure Mean 104 04/08/22 16:51 Blood Pressure Position Sitting 04/08/22 16:51 Pulse Oximetry 97 04/08/22 16:51 Oxygen Delivery Method 04/08/22 16:51 Vital Signs Temperature 97.6 F 04/08/22 16:51 Pulse Rate 60 04/08/22 16:51 Respiratory Rate 16 04/08/22 16:51 Blood Pressure 126/94 H 04/08/22 16:51 Pulse Oximetry 97 04/08/22 16:51 Oxygen Delivery Method 04/08/22 16:51 Temperature 97.6 F 04/08/22 16:51 Pulse Rate 55 L 04/08/22 21:15 Respiratory Rate 16 04/08/22 16:51 Blood Pressure 137/90 H 04/08/22 21:03 Pulse Oximetry 97 04/08/22 21:15 Oxygen Delivery Method 04/08/22 16:51 MDM - Abdominal Pain MDM Narrative Medical decision making narrative: This patient comes in with abdominal pain and states that he has not passed urine or stool for the last day or so. An IV was established where he did receive a L of normal saline and medicine for pain and nausea. CT imaging returns with some changes of his colon that might be suspicious of an inflammatory cause such as Crohn's. The patient states that he does have history of stomach ulcers. His sed rate returns at 2. There is also finding on CT imaging of partial bowel obstruction being a possibility. The patient did receive potassium chloride in the IV as his potassium returns at 2.7. He states that this is not new for him. He also received an IV dose of Solu-Medrol 125 mg. Patient states that he is feeling a lot better and has passed stool and gas. There is no sign of urinary tract infection. At the time of discharge the patient appears safe for outpatient management. The treatment plan is reviewed along with written and verbal return precautions. Reasons to return and the importance of close followup were also reviewed. He did received prescription for Zofran and tramadol. Lab Data Labs: Lab Results 04/08/22 04/08/22 04/08/22 Range/Units 17:30 17:30 17:30 WBC 6.56 (4.50-11.00) K/uL RBC 6.12 H (4.30-5.90) m/uL Hgb 17.6 H (13.5-17.5) gm/dL Hct 50.8 (37.0-53.0) % MCV 83 (80-100) fL MCH 29 (26-34) pg MCHC 35 (32-36) gm/dL RDW Coeff of Linus 13.5 (11.5-15.5) % Plt Count 378 (140-440) K/uL Neut % (Auto) 51.7 (42.0-72.0) % Lymph % (Auto) 28.5 (20-44) % [place] % (Auto) 18.1 H (0.0-11.0) % Eos % (Auto) 1.4 (0.0-7.0) % Baso % (Auto) 0.3 (0.0-3.0) % Neut # (Auto) 3.39 (1.7-7.0) K/uL Lymph # (Auto) 1.87 (0.90-2.90) K/uL [place] # (Auto) 1.20 H (0.00-0.90) K/UL Eos # (Auto) 0.09 (0.00-0.50) K/uL Baso # (Auto) 0.02 (0.00-0.30) K/uL ESR (2-15) mm/hr Sodium 133 L (135-149) mmol/L Potassium 2.7 L* (3.6-5.1) mmol/L Chloride 90 L (96-114) mmol/L Carbon Dioxide 32 (20-32) mmol/L BUN 27 (7-30) mg/dL Creatinine 1.4 (0.5-1.5) mg/dL Estimated Creat Clear 63.73 Estimated GFR 60 ml/min Glucose 119 H (60-115) mg/dL Calcium 9.1 (8.4-10.6) mg/dL Total Bilirubin 1.4 (0.1-1.5) mg/dL Direct Bilirubin 0.1 (0.0-0.5) mg/dL AST 29 (12-35) U/L ALT 28 (4-50) U/L Alkaline Phosphatase 77 (40-150) U/L C-Reactive Protein (0.5-1.0) mg/dL Total Protein 8.0 (6.0-8.3) g/dL Albumin 4.5 (3.3-5.0) g/dL Lipase 130 (23-300) U/L Urine Color (Yellow) Urine Appearance (Clear) Urine pH (5.0-8.5) Ur Specific [place] (1.000-1.030) Urine Protein (Negative) Urine Glucose (UA) (Negative) Urine Ketones (Negative) Urine Blood (Negative) Urine Nitrite (Negative) Urine Bilirubin (Negative) Urine Urobilinogen (0.2-1.0) Ur Leukocyte Esterase (Negative) Urine RBC (0-2) Urine WBC (0-5) Ur Squamous Epith Cells (None-Few) Urine Bacteria (None) SARS-CoV-2 (PCR) (Negative) 04/08/22 04/08/22 04/08/22 Range/Units 17:30 17:30 19:23 WBC (4.50-11.00) K/uL RBC (4.30-5.90) m/uL Hgb (13.5-17.5) gm/dL Hct (37.0-53.0) % MCV (80-100) fL MCH (26-34) pg MCHC (32-36) gm/dL RDW Coeff of Linus (11.5-15.5) % Plt Count (140-440) K/uL Neut % (Auto) (42.0-72.0) % Lymph % (Auto) (20-44) % [place] % (Auto) (0.0-11.0) % Eos % (Auto) (0.0-7.0) % Baso % (Auto) (0.0-3.0) % Neut # (Auto) (1.7-7.0) K/uL Lymph # (Auto) (0.90-2.90) K/uL [place] # (Auto) (0.00-0.90) K/UL Eos # (Auto) (0.00-0.50) K/uL Baso # (Auto) (0.00-0.30) K/uL ESR 2 (2-15) mm/hr Sodium (135-149) mmol/L Potassium (3.6-5.1) mmol/L Chloride (96-114) mmol/L Carbon Dioxide (20-32) mmol/L BUN (7-30) mg/dL Creatinine (0.5-1.5) mg/dL Estimated Creat Clear Estimated GFR ml/min Glucose (60-115) mg/dL Calcium (8.4-10.6) mg/dL Total Bilirubin (0.1-1.5) mg/dL Direct Bilirubin (0.0-0.5) mg/dL AST (12-35) U/L ALT (4-50) U/L Alkaline Phosphatase (40-150) U/L C-Reactive Protein 0.9 (0.5-1.0) mg/dL Total Protein (6.0-8.3) g/dL Albumin (3.3-5.0) g/dL Lipase (23-300) U/L Urine Color (Yellow) Urine Appearance (Clear) Urine pH (5.0-8.5) Ur Specific [place] (1.000-1.030) Urine Protein (Negative) Urine Glucose (UA) (Negative) Urine Ketones (Negative) Urine Blood (Negative) Urine Nitrite (Negative) Urine Bilirubin (Negative) Urine Urobilinogen (0.2-1.0) Ur Leukocyte Esterase (Negative) Urine RBC (0-2) Urine WBC (0-5) Ur Squamous Epith Cells (None-Few) Urine Bacteria (None) SARS-CoV-2 (PCR) Negative SARS-CoV-2 (Negative) 04/08/22 Range/Units 21:06 WBC (4.50-11.00) K/uL RBC (4.30-5.90) m/uL Hgb (13.5-17.5) gm/dL Hct (37.0-53.0) % MCV (80-100) fL MCH (26-34) pg MCHC (32-36) gm/dL RDW Coeff of Linus (11.5-15.5) % Plt Count (140-440) K/uL Neut % (Auto) (42.0-72.0) % Lymph % (Auto) (20-44) % [place] % (Auto) (0.0-11.0) % Eos % (Auto) (0.0-7.0) % Baso % (Auto) (0.0-3.0) % Neut # (Auto) (1.7-7.0) K/uL Lymph # (Auto) (0.90-2.90) K/uL [place] # (Auto) (0.00-0.90) K/UL Eos # (Auto) (0.00-0.50) K/uL Baso # (Auto) (0.00-0.30) K/uL ESR (2-15) mm/hr Sodium (135-149) mmol/L Potassium (3.6-5.1) mmol/L Chloride (96-114) mmol/L Carbon Dioxide (20-32) mmol/L BUN (7-30) mg/dL Creatinine (0.5-1.5) mg/dL Estimated Creat Clear Estimated GFR ml/min Glucose (60-115) mg/dL Calcium (8.4-10.6) mg/dL Total Bilirubin (0.1-1.5) mg/dL Direct Bilirubin (0.0-0.5) mg/dL AST (12-35) U/L ALT (4-50) U/L Alkaline Phosphatase (40-150) U/L C-Reactive Protein (0.5-1.0) mg/dL Total Protein (6.0-8.3) g/dL Albumin (3.3-5.0) g/dL Lipase (23-300) U/L Urine Color [place] A (Yellow) Urine Appearance Slightly Cloudy A (Clear) Urine pH 5.5 (5.0-8.5) Ur Specific [place] <= 1.005 (1.000-1.030) Urine Protein Negative (Negative) Urine Glucose (UA) Negative (Negative) Urine Ketones Negative (Negative) Urine Blood Negative (Negative) Urine Nitrite Negative (Negative) Urine Bilirubin Negative (Negative) Urine Urobilinogen 0.2 (0.2-1.0) Ur Leukocyte Esterase Negative (Negative) Urine RBC 0-2 (0-2) Urine WBC 0-2 (0-5) Ur Squamous Epith Cells None (None-Few) Urine Bacteria None (None) SARS-CoV-2 (PCR) (Negative) Imaging Data CT scan - abdomen: Radiologist's impression: 1. There is mild to mildly dilated fluid-filled small bowel with multiple segments of abnormal circumferential bowel wall thickening with associated mucosal thickening and hyperenhancement, resulting in luminal narrowing. This results in mild to moderately dilated mid and distal small bowel, suggesting a low-grade partial small bowel obstruction. The small bowel changes are most suggestive of an inflammatory process such as Crohn`s disease. Clinically correlate. ECG Data Attestation: I personally reviewed and interpreted this ECG as follows: Interpretation: Sinus bradycardia, rate 50 beats per minute. There are no specific ST or T-wave abnormalities. Prolonged QT interval. Discharge Plan Discharge Clinical Impression: Colitis, Abdominal pain Patient Disposition: Home, Self-Care Condition: Improved Additional Instructions: Take medication as needed and indicated. Follow up with MD or return if worsening symptoms happen. Prescriptions: No Action zolpidem 10 mg tablet 10 mg PO HS PRN aspirin 81 mg tablet,chewable 1 tab PO DAILY ferrous sulfate 325 mg (65 mg iron) tablet 325 mg PO QDAY metoprolol succinate 200 mg tablet extended release 24 hr 200 mg PO DAILY losartan 50 mg tablet 50 mg PO DAILY omeprazole 20 mg capsule,delayed release(DR/EC) 20 mg PO DAILY clopidogrel 75 mg tablet 75 mg PO DAILY tamsulosin 0.4 mg capsule 0.4 mg PO DAILY amlodipine 10 mg tablet 10 mg PO DAILY magnesium oxide 400 mg (241.3 mg magnesium) tablet 400 mg PO QDAY tadalafil 20 mg tablet 20 mg PO .As Needed PRN Rx Instructions: TAKE ONE TABLET 30 MIN TO 36 HRS PRIOR TO INTERCOURSE nitroglycerin 0.4 mg tablet, sublingual 0.4 mg sublingual .As Needed as needed PRN potassium chloride 20 mEq tablet,ER particles/crystals 40 meq PO BID duloxetine 30 mg capsule,delayed release(DR/EC) 30 mg PO QAM Rx Instructions: total dose 90 mg duloxetine 60 mg capsule,delayed release(DR/EC) 60 mg PO QAM Rx Instructions: Takes 90mg in the morning potassium bicarb-citric acid 20 mEq tablet, effervescent 40 meq PO BID Qty: 120 2RF Rx Instructions: Has been hospitalized twice. Unable to swallow standard pills. spironolactone 100 mg Tablet 100 mg PO DAILY Qty: 30 0RF Rx Instructions: please note dose increase furosemide [Lasix] 20 mg tablet 20 mg PO DAILY Qty: 30 0RF bupropion HCl 300 mg tablet extended release 24 hr 300 mg PO DAILY Qty: 90 1RF aripiprazole 30 mg tablet 30 mg PO DAILY Qty: 90 0RF Follow Up/Referrals: Poli Street MD [Primary Care Provider] - Stand Alone Forms: [employer] Info Instructions
[2022-04-08] MEDS: ONDANSETRON 2 MG/ML inj 4 MG IVP (17:42)
[2022-04-08] MEDS: HYDROmorphone 0.5 mg/0.5 ml inj IVP (17:42)
[2022-04-08 17:45] LABS: Basophils Absolute Auto 0.02 K/uL (0.00-0.30); Basophils Percent Auto 0.3 % (0.0-3.0); Eosinophils Absolute Auto 0.09 K/uL (0.00-0.50); Eosinophils Percent Auto 1.4 % (0.0-7.0); Hematocrit 50.8 % (37.0-53.0); Hemoglobin* 17.6 gm/dL (13.5-17.5); Lymphocytes Absolute Auto 1.87 K/uL (0.90-2.90); Lymphocytes Percent Auto 28.5 % (20-44); Mean Corpuscular HGB Conc 35 gm/dL (32-36); Mean Corpuscular Hemoglobin 29 pg (26-34); Mean Corpuscular Volume 83 fL (80-100); Monocytes Percent Auto 18.1 % (0.0-11.0); Neutrophils Absolute Auto 3.39 K/uL (1.7-7.0); Neutrophils Percent Auto 51.7 % (42.0-72.0); Platelet Count* 378 K/uL (140-440); RDW Coefficient of Variation % 13.5 % (11.5-15.5); Red Blood Count 6.12 m/uL (4.30-5.90); White Blood Count* 6.56 K/uL (4.50-11.00)
[2022-04-08 17:47] LABS: Slide Review Reflex No
[2022-04-08 18:21] LABS: Chloride* 90 mmol/L (96-114); Sodium* 133 mmol/L (135-149)
[2022-04-08 18:22] LABS: Albumin* 4.5 g/dL (3.3-5.0)
[2022-04-08 18:24] LABS: Blood Urea Nitrogen* 27 mg/dL (7-30); Carbon Dioxide* 32 mmol/L (20-32); Creatinine* 1.4 mg/dL (0.5-1.5); Est. Creatinine Clearance* 63.73; Estimated Glomerular Filt Rate 60 ml/min; Glucose* 119 mg/dL (60-115)
[2022-04-08 18:25] LABS: Alanine Aminotransferase* 28 U/L (4-50); Aspartate Amino Transferase* 29 U/L (12-35); Bilirubin Direct* 0.1 mg/dL (0.0-0.5); Bilirubin Total* 1.4 mg/dL (0.1-1.5); Calcium* 9.1 mg/dL (8.4-10.6); Lipase* 130 U/L (23-300)
[2022-04-08 18:27] LABS: Potassium* 2.7 mmol/L (3.6-5.1)
--- NOTE | 2022-04-08 18:27 | ED.NURSE ---
Critical result from lab: potassium 2.7. and RN updated.
[2022-04-08 18:41] LABS: Alkaline Phosphatase* 77 U/L (40-150)
[2022-04-08] MEDS: POTASSIUM CHLORIDE 10 MEQ/100 ML PIGGYBACK 100 MEQ IVPB (20:06)
[2022-04-08 20:22] LABS: SARS PCR* Negative SARS-CoV-2 (Negative)
[2022-04-08 20:23] LABS: C Reactive Protein* 0.9 mg/dL (0.5-1.0)
[2022-04-08 20:59] LABS: Erythrocyte SedimentationRate* 2 mm/hr (2-15)
[2022-04-08] MEDS: METHYLPREDNISOLONE SOD SUCC 62.5 MG/ML (125) 125 MG IVP (21:08)
[2022-04-08 21:12] LABS: Appearance Urine Slightly Cloudy (Clear); Bilirubin Urine Negative (Negative); Blood Urine Negative (Negative); Color Urine Amber (Yellow); Glucose Urine Negative (Negative); Ketones Urine Negative (Negative); Leukocyte Esterase Urine Negative (Negative); Nitrite Urine Negative (Negative); Protein Urine Negative (Negative); Specific Gravity Urine <= 1.005 (1.000-1.030); Urobilinogen Urine 0.2 (0.2-1.0); pH Urine 5.5 (5.0-8.5)
[2022-04-08 21:19] LABS: RBC Urine 0-2 (0-2); WBC Urine 0-2 (0-5)
== END 2022-04-08 21:39 | disposition home or self-care (01) ==
PROVIDERS: Emergency Provider Emergency Medicine Emergency Medical Services; PCP Family Medicine
DX: K52.9 Noninfective gastroenteritis and colitis, unspecified (principal)
CPT/HCPCS: 36415; 74177; 80048; 80076; 81001; 83690; 85025; 85651; 86140; 87635; 93005; 96365; 96375; 99284; 99285; J1170; J2405; J2930; J3480; Q9967

== ENCOUNTER 2022-06-20 16:52 | Outpatient (CLI) | payer BC, SELFPAY | END 2022-06-20 16:53 | disposition home or self-care (01) | PROVIDERS: PCP Family Medicine; Visit Provider Family Medicine | DX: I10 Essential (primary) hypertension (principal); E78.5 Hyperlipidemia, unspecified; E87.6 Hypokalemia; F41.1 Generalized anxiety disorder; G62.9 Polyneuropathy, unspecified | CPT/HCPCS: 80048; 82607; 83735; 85025 ==

== ENCOUNTER 2022-06-22 12:53 | Emergency (ER) | payer BC, SELFPAY ==
[2022-06-22] VITALS (19 sets, daily range): BP systolic 127–153; BP diastolic 78–101; PULSE 52–63; RESP 16–18; TEMP 36.5; O2SAT 92–99; BMI 32.1
--- NOTE | 2022-06-22 13:35 | ED_ITS ---
HPI - General Adult General Time Seen by Provider: 13:35 <George Pratt MD - Last Filed: 06/28/22 06:48> Date Seen: 06/22/22 <George Pratt MD - Last Filed: 06/28/22 06:48> Chief complaint: Unspecified Complaint, Adult <George Pratt MD - Last Filed: 06/28/22 06:48> Stated complaint: Low K <George Pratt MD - Last Filed: 06/28/22 06:48> Time Seen by Provider: 06/22/22 12:57 <George Pratt MD - Last Filed: 06/28/22 06:48> Source: patient <George Pratt MD - Last Filed: 06/28/22 06:48> Mode of arrival: ambulatory <George Pratt MD - Last Filed: 06/28/22 06:48> Limitations: no limitations <George Pratt MD - Last Filed: 06/28/22 06:48> History of Present Illness HPI narrative: Patient is a 51 year white male on spironolactone for hypertension, he has had a history of hypokalemia in the past he has had a history of coronary artery disease arteriosclerotic cardiovascular disease peripheral neuropathy hyperlipidemia. He noticed some tingling in his hands and feet few days ago he had some potassium on blood work drawn and his potassium is low at 2.3 again. He has had no chest pain breathing problem fevers or chills by his report to me. He did tell the nurses he has had some shortness of breath but he denies that to me. He has had no leg swelling edema bleeding or clotting problems <George Pratt MD - Last Filed: 06/28/22 06:48> Related Data Home medications: Home Medications Medication Instructions Recorded Confirmed amlodipine 10 mg tablet 10 mg PO DAILY 09/22/21 06/24/22 aspirin 81 mg chewable tablet 1 tab PO DAILY 09/22/21 06/24/22 clopidogrel 75 mg tablet 75 mg PO DAILY 09/22/21 06/24/22 ferrous sulfate 325 mg (65 mg 325 mg PO QDAY 09/22/21 06/24/22 iron) tablet losartan 50 mg tablet 50 mg PO DAILY 09/22/21 06/24/22 magnesium oxide 400 mg (241.3 mg 400 mg PO QDAY 09/22/21 06/24/22 magnesium) tablet metoprolol succinate 200 mg 200 mg PO DAILY 09/22/21 06/24/22 tablet,extended release 24 hr omeprazole 20 mg capsule,delayed 20 mg PO DAILY 09/22/21 06/24/22 release tadalafil 20 mg tablet 20 mg PO .As Needed PRN 09/22/21 06/24/22 tamsulosin 0.4 mg capsule 0.4 mg PO DAILY 09/22/21 06/24/22 zolpidem 10 mg tablet 10 mg PO HS PRN 09/22/21 06/24/22 duloxetine 30 mg capsule,delayed 30 mg PO QAM 01/26/22 06/24/22 release duloxetine 60 mg capsule,delayed 60 mg PO QAM 01/26/22 06/24/22 release nitroglycerin 0.4 mg sublingual 0.4 mg sublingual .As Needed as 01/26/22 06/24/22 tablet needed PRN Previous Rx's Medication Instructions Recorded bupropion HCl 300 mg 24 hr tablet, 300 mg PO DAILY #90 tabs 11/03/21 extended release aripiprazole 30 mg tablet 30 mg PO DAILY #90 tabs 12/27/21 furosemide 20 mg tablet (Lasix) 20 mg PO DAILY #30 tabs 02/07/22 potassium chloride 10 mEq 40 meq PO QDAY #120 caps 06/20/22 capsule,extended release spironolactone 100 mg tablet 100 mg PO DAILY #90 tabs 06/20/22 <George Pratt MD - Last Filed: 06/28/22 06:48> Allergies/adverse reactions: Allergies Allergy/AdvReac Type Severity Reaction Status Date / Time ciprofloxacin Allergy Severe violently Verified 06/24/22 13:04 ill rosuvastatin Allergy Unknown shutting Verified 06/24/22 13:04 kidneys down triamterene [From Maxzide] AdvReac Intermediate Verified 06/24/22 13:04 hydrochlorothiazide AdvReac Verified 06/24/22 13:04 <George Pratt MD - Last Filed: 06/28/22 06:48> Review of Systems Status of ROS: Reports: 6 or more systems reviewed and unremarkable except as noted in History and below <George Pratt MD - Last Filed: 06/28/22 06:48> [facility] Medical History: Medical History (Updated 06/24/22 @ 22:[address] MD) ASCVD (arteriosclerotic cardiovascular disease) ?I25.10 - Atherosclerotic heart disease of [place] coronary artery without angina pectoris (ICD-10) Colon polyps ?K63.5 - Polyp of colon (ICD-10) Erectile dysfunction ?N52.9 - Male erectile dysfunction, unspecified (ICD-10) Gastroesophageal reflux disease ?K21.9 - Gastro-esophageal reflux disease without esophagitis (ICD-10) Generalized anxiety disorder ?F41.1 - Generalized anxiety disorder (ICD-10) History of CHF (congestive heart failure) ?Z86.79 - Personal history of other diseases of the circulatory system (ICD- 10) History of colonic polyps ?Z86.010 - Personal history of colonic polyps (ICD-10) Hyperlipidemia ?E78.5 - Hyperlipidemia, unspecified (ICD-10) Hypertension ?I10 - Essential (primary) hypertension (ICD-10) Hypokalemia ?E87.6 - Hypokalemia (ICD-10) Iron deficiency anemia due to chronic blood loss ?D50.0 - Iron deficiency anemia secondary to blood loss (chronic) (ICD-10) Melena ?K92.1 - Melena (ICD-10) Moderate episode of recurrent major depressive disorder (08/31/08) ?F33.1 - Major depressive disorder, recurrent, moderate (ICD-10) Peripheral neuropathy ?G62.9 - Polyneuropathy, unspecified (ICD-10) ST elevation myocardial infarction (STEMI) (06/15/19) ?I21.3 - ST elevation (STEMI) myocardial infarction of unspecified site (ICD- 10) <George Pratt MD - Last Filed: 06/28/22 06:48> Family History: Family History Family/Other Stroke Prostate cancer Father High blood pressure Lung cancer Type 1 diabetes mellitus Daughter Anxiety <George Pratt MD - Last Filed: 06/28/22 06:48> Social History: Social History Narrative: tobacco use , 2 kids, 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, smoker, no EtOH Smoking Status: Former smoker Do you use any of these nicotine containing products: None Second hand tobacco smoke exposure: No How often do you have a drink containing alcohol: never AUDIT-C Alcohol total score: 0 Non-prescribed substance use: denies use Little interest or pleasure in doing things: not at all Feeling down, depressed, or hopeless: several days service: No <George Pratt MD - Last Filed: 06/28/22 06:48> Exam Narrative: Exam Narrative: Objective vital signs show elevated blood pressure Alert orient x3 HEENT unremarkable mouth clear slightly dry neck supple pulses regular abdomen benign soft extremities are no edema neurologic nonfocal <George Pratt MD - Last Filed: 06/28/22 06:48> Const: Vital Signs, click to edit/add: Vital Signs - 24 hr 06/22/22 13:08 06/22/22 14:20 06/22/22 14:23 Temperature 97.7 F Pulse Rate 57 L 57 L Pulse Rate [Pulse Oximeter] 61 Respiratory Rate 18 Blood Pressure 146/78 H Blood Pressure [Ri ght Upper Arm] 153/86 H Pulse Oximetry 96 96 97 Oxygen Delivery Me thod Room Air 06/22/22 14:30 06/22/22 14:32 06/22/22 14:45 Temperature Pulse Rate 59 L 56 L 55 L Pulse Rate [Pulse Oximeter] Respiratory Rate Blood Pressure 127/82 Blood Pressure [Ri ght Upper Arm] Pulse Oximetry 93 96 98 Oxygen Delivery Me thod 06/22/22 15:00 06/22/22 15:01 06/22/22 15:02 Temperature Pulse Rate 59 L 63 62 Pulse Rate [Pulse Oximeter] Respiratory Rate 16 Blood Pressure 138/84 Blood Pressure [Ri ght Upper Arm] Pulse Oximetry 96 97 95 Oxygen Delivery Me thod 06/22/22 15:15 06/22/22 15:30 06/22/22 15:31 Temperature Pulse Rate 56 L 59 L 60 Pulse Rate [Pulse Oximeter] Respiratory Rate Blood Pressure 142/101 H Blood Pressure [Ri ght Upper Arm] Pulse Oximetry 98 95 92 Oxygen Delivery Me thod 06/22/22 15:45 06/22/22 16:00 06/22/22 16:02 Temperature Pulse Rate 57 L 57 L 54 L Pulse Rate [Pulse Oximeter] Respiratory Rate Blood Pressure 141/88 H Blood Pressure [Ri ght Upper Arm] Pulse Oximetry 93 95 95 Oxygen Delivery Me thod 06/22/22 16:15 06/22/22 16:30 06/22/22 16:35 Temperature Pulse Rate 58 L 53 L 53 L Pulse Rate [Pulse Oximeter] Respiratory Rate Blood Pressure Blood Pressure [Ri ght Upper Arm] Pulse Oximetry 99 98 97 Oxygen Delivery Me thod 06/22/22 16:45 Temperature Pulse Rate 52 L Pulse Rate [Pulse Oximeter] Respiratory Rate Blood Pressure Blood Pressure [Ri ght Upper Arm] Pulse Oximetry 98 Oxygen Delivery Me thod <George Pratt MD - Last Filed: 06/28/22 06:48> Vital Signs, click to edit/add: Vital Signs - 24 hr 06/22/22 13:08 06/22/22 14:20 06/22/22 14:23 Temperature 97.7 F Pulse Rate 57 L 57 L Pulse Rate [Pulse Oximeter] 61 Respiratory Rate 18 Blood Pressure 146/78 H Blood Pressure [Ri ght Upper Arm] 153/86 H Pulse Oximetry 96 96 97 Oxygen Delivery Me thod Room Air 06/22/22 14:30 06/22/22 14:32 06/22/22 14:45 Temperature Pulse Rate 59 L 56 L 55 L Pulse Rate [Pulse Oximeter] Respiratory Rate Blood Pressure 127/82 Blood Pressure [Ri ght Upper Arm] Pulse Oximetry 93 96 98 Oxygen Delivery Me thod 06/22/22 15:00 06/22/22 15:01 06/22/22 15:02 Temperature Pulse Rate 59 L 63 62 Pulse Rate [Pulse Oximeter] Respiratory Rate 16 Blood Pressure 138/84 Blood Pressure [Ri ght Upper Arm] Pulse Oximetry 96 97 95 Oxygen Delivery Me thod 06/22/22 15:15 06/22/22 15:30 06/22/22 15:31 Temperature Pulse Rate 56 L 59 L 60 Pulse Rate [Pulse Oximeter] Respiratory Rate Blood Pressure 142/101 H Blood Pressure [Ri ght Upper Arm] Pulse Oximetry 98 95 92 Oxygen Delivery Me thod 06/22/22 15:45 06/22/22 16:00 06/22/22 16:02 Temperature Pulse Rate 57 L 57 L 54 L Pulse Rate [Pulse Oximeter] Respiratory Rate Blood Pressure 141/88 H Blood Pressure [Ri t Upper Arm] Pulse Oximetry 93 95 95 Oxygen Delivery Me thod 06/22/22 16:15 06/22/22 16:30 06/22/22 16:35 Temperature Pulse Rate 58 L 53 L 53 L Pulse Rate [Pulse Oximeter] Respiratory Rate Blood Pressure Blood Pressure [Ri t Upper Arm] Pulse Oximetry 99 98 97 Oxygen Delivery Me thod 06/22/22 16:45 Temperature Pulse Rate 52 L Pulse Rate [Pulse Oximeter] Respiratory Rate Blood Pressure Blood Pressure [Ri t Upper Arm] Pulse Oximetry 98 Oxygen Delivery Me thod <Poli Cheatham MD - Last Filed: 06/23/22 00:44> Course Vital Signs Vital signs: Initial Vital Signs Temperature 97.7 F 06/22/22 13:08 Temperature Source Temporal Artery Scan 06/22/22 13:08 Pulse Rate 61 06/22/22 13:08 Respiratory Rate 18 06/22/22 13:08 Blood Pressure 153/86 H 06/22/22 13:08 Blood Pressure Mean 108 06/22/22 13:08 Blood Pressure Position Sitting 06/22/22 13:08 Pulse Oximetry 96 06/22/22 13:08 Oxygen Delivery Method Room Air 06/22/22 13:08 Vital Signs Temperature 97.7 F 06/22/22 13:08 Pulse Rate 61 06/22/22 13:08 Respiratory Rate 18 06/22/22 13:08 Blood Pressure 153/86 H 06/22/22 13:08 Pulse Oximetry 96 06/22/22 13:08 Oxygen Delivery Method Room Air 06/22/22 13:08 Temperature 97.7 F 06/22/22 13:08 Pulse Rate 52 L 06/22/22 16:45 Respiratory Rate 16 06/22/22 15:01 Blood Pressure 141/88 H 06/22/22 16:02 Pulse Oximetry 98 06/22/22 16:45 Oxygen Delivery Method Room Air 06/22/22 13:08 <George Pratt MD - Last Filed: 06/28/22 06:48> Initial Vital Signs Temperature 97.7 F 06/22/22 13:08 Temperature Source Temporal Artery Scan 06/22/22 13:08 Pulse Rate 61 06/22/22 13:08 Respiratory Rate 18 06/22/22 13:08 Blood Pressure 153/86 H 06/22/22 13:08 Blood Pressure Mean 108 06/22/22 13:08 Blood Pressure Position Sitting 06/22/22 13:08 Pulse Oximetry 96 06/22/22 13:08 Oxygen Delivery Method Room Air 06/22/22 13:08 Vital Signs Temperature 97.7 F 06/22/22 13:08 Pulse Rate 61 06/22/22 13:08 Respiratory Rate 18 06/22/22 13:08 Blood Pressure 153/86 H 06/22/22 13:08 Pulse Oximetry 96 06/22/22 13:08 Oxygen Delivery Method Room Air 06/22/22 13:08 Temperature 97.7 F 06/22/22 13:08 Pulse Rate 52 L 06/22/22 16:45 Respiratory Rate 16 06/22/22 15:01 Blood Pressure 141/88 H 06/22/22 16:02 Pulse Oximetry 98 06/22/22 16:45 Oxygen Delivery Method Room Air 06/22/22 13:08 <Poli Cheatham MD - Last Filed: 06/23/22 00:44> Medical Decision Making MDM Narrative Medical decision making narrative: Patient is a 51 year white male has had a history of hyperkalemia in the past. He is on spironolactone he is followed by Dr. Street. He had a low potassium this week and was sent to the ER for evaluation his potassium was 2.3. He will get 10 mEq x2 IV will given 25 mEq oral potassium bicarb as well will recheck his potassium at that point hopefully can go home if it is improving to continue or oral supplements. The patient will get an EKG be put on a artificial leather calender operator as well and get up some IV fluid in addition. He has family comfortable plan <George Pratt MD - Last Filed: 06/28/22 06:48> Patient is a 51 year white male has had a history of hyperkalemia in the past. He is on spironolactone he is followed by Dr. Street. He had a low potassium this week and was sent to the ER for evaluation his potassium was 2.3. He will get 10 mEq x2 IV will given 25 mEq oral potassium bicarb as well will recheck his potassium at that point hopefully can go home if it is improving to continue or oral supplements. The patient will get an EKG be put on a artificial leather calender operator as well and get up some IV fluid in addition. He has family comfortable plan [place] --received this patient at change of shift. 430p Potassium returns at 2.6. Trending in the right direction. Will give 2 more bumps of potassium anticipate discharge following that. Verified that magnesium level was in goal. Shortly after receiving last bump of potassium, read your level. Only at 2.7 though may not have fully normalized and still trending upward. I think safe to discharge. See Dr. Pratt discharge plan. Mr. Norris plans on taking what he understands to be prescription of more tolerable capsules of potassium as opposed to the standard large pills --says this is why he often does not take it. <Poli Cheatham MD - Last Filed: 06/23/22 00:44> Lab Data Lab results reviewed: Yes I reviewed the patient's lab results <Poli Cheatham MD - Last Filed: 06/23/22 00:44> Labs: Lab Results 06/22/22 06/22/22 06/22/22 Range/Units 13:50 15:04 16:24 WBC 7.01 (4.50-11.00) K/uL RBC 5.25 (4.30-5.90) m/uL Hgb 14.9 (13.5-17.5) gm/dL Hct 45.0 (37.0-53.0) % MCV 86 (80-100) fL MCH 28 (26-34) pg MCHC 33 (32-36) gm/dL RDW Coeff of Linus 13.9 (11.5-15.5) % Plt Count 297 (140-440) K/uL Neut % (Auto) 66.2 (42.0-72.0) % Lymph % (Auto) 23.4 (20-44) % [place] % (Auto) 7.4 (0.0-11.0) % Eos % (Auto) 2.4 (0.0-7.0) % Baso % (Auto) 0.3 (0.0-3.0) % Neut # (Auto) 4.64 (1.7-7.0) K/uL Lymph # (Auto) 1.64 (0.90-2.90) K/uL [place] # (Auto) 0.50 (0.00-0.90) K/UL Eos # (Auto) 0.17 (0.00-0.50) K/uL Baso # (Auto) 0.02 (0.00-0.30) K/uL Sodium 137 (135-149) mmol/L Potassium 2.1 L* 2.6 L* (3.6-5.1) mmol/L Chloride 95 L (96-114) mmol/L Carbon Dioxide 38 H (20-32) mmol/L BUN 8 (7-30) mg/dL Creatinine 1.0 (0.5-1.5) mg/dL Estimated Creat Clear 92.03 Estimated GFR 91 ml/min Glucose 139 H (60-115) mg/dL Calcium 8.4 (8.4-10.6) mg/dL Magnesium 2.2 (1.5-2.6) mg/dL SARS-CoV-2 (PCR) Negative SARS-CoV-2 (Negative) 06/22/22 Range/Units 20:03 WBC (4.50-11.00) K/uL RBC (4.30-5.90) m/uL Hgb (13.5-17.5) gm/dL Hct (37.0-53.0) % MCV (80-100) fL MCH (26-34) pg MCHC (32-36) gm/dL RDW Coeff of Linus (11.5-15.5) % Plt Count (140-440) K/uL Neut % (Auto) (42.0-72.0) % Lymph % (Auto) (20-44) % [place] % (Auto) (0.0-11.0) % Eos % (Auto) (0.0-7.0) % Baso % (Auto) (0.0-3.0) % Neut # (Auto) (1.7-7.0) K/uL Lymph # (Auto) (0.90-2.90) K/uL [place] # (Auto) (0.00-0.90) K/UL Eos # (Auto) (0.00-0.50) K/uL Baso # (Auto) (0.00-0.30) K/uL Sodium (135-149) mmol/L Potassium 2.7 L* (3.6-5.1) mmol/L Chloride (96-114) mmol/L Carbon Dioxide (20-32) mmol/L BUN (7-30) mg/dL Creatinine (0.5-1.5) mg/dL Estimated Creat Clear Estimated GFR ml/min Glucose (60-115) mg/dL Calcium (8.4-10.6) mg/dL Magnesium (1.5-2.6) mg/dL SARS-CoV-2 (PCR) (Negative) <George Pratt MD - Last Filed: 06/28/22 06:48> Lab Results 06/22/22 06/22/22 06/22/22 Range/Units 13:50 15:04 16:24 WBC 7.01 (4.50-11.00) K/uL RBC 5.25 (4.30-5.90) m/uL Hgb 14.9 (13.5-17.5) gm/dL Hct 45.0 (37.0-53.0) % MCV 86 (80-100) fL MCH 28 (26-34) pg MCHC 33 (32-36) gm/dL RDW Coeff of Linus 13.9 (11.5-15.5) % Plt Count 297 (140-440) K/uL Neut % (Auto) 66.2 (42.0-72.0) % Lymph % (Auto) 23.4 (20-44) % [place] % (Auto) 7.4 (0.0-11.0) % Eos % (Auto) 2.4 (0.0-7.0) % Baso % (Auto) 0.3 (0.0-3.0) % Neut # (Auto) 4.64 (1.7-7.0) K/uL Lymph # (Auto) 1.64 (0.90-2.90) K/uL [place] # (Auto) 0.50 (0.00-0.90) K/UL Eos # (Auto) 0.17 (0.00-0.50) K/uL Baso # (Auto) 0.02 (0.00-0.30) K/uL Sodium 137 (135-149) mmol/L Potassium 2.1 L* 2.6 L* (3.6-5.1) mmol/L Chloride 95 L (96-114) mmol/L Carbon Dioxide 38 H (20-32) mmol/L BUN 8 (7-30) mg/dL Creatinine 1.0 (0.5-1.5) mg/dL Estimated Creat Clear 92.03 Estimated GFR 91 ml/min Glucose 139 H (60-115) mg/dL Calcium 8.4 (8.4-10.6) mg/dL Magnesium 2.2 (1.5-2.6) mg/dL SARS-CoV-2 (PCR) Negative SARS-CoV-2 (Negative) 06/22/22 Range/Units 20:03 WBC (4.50-11.00) K/uL RBC (4.30-5.90) m/uL Hgb (13.5-17.5) gm/dL Hct (37.0-53.0) % MCV (80-100) fL MCH (26-34) pg MCHC (32-36) gm/dL RDW Coeff of Linus (11.5-15.5) % Plt Count (140-440) K/uL Neut % (Auto) (42.0-72.0) % Lymph % (Auto) (20-44) % [place] % (Auto) (0.0-11.0) % Eos % (Auto) (0.0-7.0) % Baso % (Auto) (0.0-3.0) % Neut # (Auto) (1.7-7.0) K/uL Lymph # (Auto) (0.90-2.90) K/uL [place] # (Auto) (0.00-0.90) K/UL Eos # (Auto) (0.00-0.50) K/uL Baso # (Auto) (0.00-0.30) K/uL Sodium (135-149) mmol/L Potassium 2.7 L* (3.6-5.1) mmol/L Chloride (96-114) mmol/L Carbon Dioxide (20-32) mmol/L BUN (7-30) mg/dL Creatinine (0.5-1.5) mg/dL Estimated Creat Clear Estimated GFR ml/min Glucose (60-115) mg/dL Calcium (8.4-10.6) mg/dL Magnesium (1.5-2.6) mg/dL SARS-CoV-2 (PCR) (Negative) <Poli Cheatham MD - Last Filed: 06/23/22 00:44> Discharge Plan Discharge Clinical Impression: Acute hypokalemia <George Pratt MD - Last Filed: 06/28/22 06:48> Patient Disposition: Home w/ Parent or Adult <George Pratt MD - Last Filed: 06/28/22 06:48> Condition: Improved <George Pratt MD - Last Filed: 06/28/22 06:48> Additional Instructions: With history of hypokalemia, would recommend not taking spironolactone for few days. Take new potassium replacement as prescribed. Recheck potassium in [address] at the office. Return sooner as needed. High potassium foods are recommended <George Pratt MD - Last Filed: 06/28/22 06:48> Activity Level: Light activity <George rPatt MD - Last Filed: 06/28/22 06:48> Light activity <Poli Cheatham MD - Last Filed: 06/23/22 00:44> Discharge Diet: Regular <George Pratt MD - Last Filed: 06/28/22 06:48> Regular <Poli Cheatham MD - Last Filed: 06/23/22 00:44> Diet Detail: High potassium diet recommended <George Pratt MD - Last Filed: 06/28/22 06:48> High potassium diet recommended <Poli Cheatham MD - Last Filed: 06/23/22 00:44> Prescriptions: No Action spironolactone 100 mg tablet 100 mg PO DAILY Qty: 90 0RF potassium chloride 10 mEq capsule, extended release 40 meq PO QDAY Qty: 120 2RF zolpidem 10 mg tablet 10 mg PO HS PRN aspirin 81 mg tablet,chewable 1 tab PO DAILY ferrous sulfate 325 mg (65 mg iron) tablet 325 mg PO QDAY metoprolol succinate 200 mg tablet extended release 24 hr 200 mg PO DAILY losartan 50 mg tablet 50 mg PO DAILY omeprazole 20 mg capsule,delayed release(DR/EC) 20 mg PO DAILY clopidogrel 75 mg tablet 75 mg PO DAILY tamsulosin 0.4 mg capsule 0.4 mg PO DAILY amlodipine 10 mg tablet 10 mg PO DAILY magnesium oxide 400 mg (241.3 mg magnesium) tablet 400 mg PO QDAY tadalafil 20 mg tablet 20 mg PO .As Needed PRN Rx Instructions: TAKE ONE TABLET 30 MIN TO 36 HRS PRIOR TO INTERCOURSE nitroglycerin 0.4 mg tablet, sublingual 0.4 mg sublingual .As Needed as needed PRN duloxetine 30 mg capsule,delayed release(DR/EC) 30 mg PO QAM Rx Instructions: total dose 90 mg duloxetine 60 mg capsule,delayed release(DR/EC) 60 mg PO QAM Rx Instructions: Takes 90mg in the morning furosemide [Lasix] 20 mg tablet 20 mg PO DAILY Qty: 30 0RF bupropion HCl 300 mg tablet extended release 24 hr 300 mg PO DAILY Qty: 90 1RF aripiprazole 30 mg tablet 30 mg PO DAILY Qty: 90 0RF <George Pratt MD - Last Filed: 06/28/22 06:48> Follow Up/Referrals: Poli Street MD [Primary Care Provider] - <George Pratt MD - Last Filed: 06/28/22 06:48> Stand Alone Forms: Stay[employer] Info Instructions <George Pratt MD - Last Filed: 06/28/22 06:48>
[2022-06-22 14:10] LABS: Basophils Absolute Auto 0.02 K/uL (0.00-0.30); Basophils Percent Auto 0.3 % (0.0-3.0); Eosinophils Absolute Auto 0.17 K/uL (0.00-0.50); Eosinophils Percent Auto 2.4 % (0.0-7.0); Hemoglobin* 14.9 gm/dL (13.5-17.5); Immature Granulocytes Abs Auto 0.02 K/uL (0.00-0.30); Immature Granulocytes Pct Auto 0.3 %; Lymphocytes Absolute Auto 1.64 K/uL (0.90-2.90); Lymphocytes Percent Auto 23.4 % (20-44); Mean Corpuscular HGB Conc 33 gm/dL (32-36); Mean Corpuscular Hemoglobin 28 pg (26-34); Mean Corpuscular Volume 86 fL (80-100); Monocytes Percent Auto 7.4 % (0.0-11.0); Neutrophils Absolute Auto 4.64 K/uL (1.7-7.0); Neutrophils Percent Auto 66.2 % (42.0-72.0); Platelet Count* 297 K/uL (140-440); RDW Coefficient of Variation % 13.9 % (11.5-15.5); Red Blood Count 5.25 m/uL (4.30-5.90); White Blood Count* 7.01 K/uL (4.50-11.00)
[2022-06-22 14:17] LABS: Slide Review Reflex No
[2022-06-22] MEDS: POTASSIUM BICARB 25 MEQ EFFERVESCENT TAB PO (14:17)
[2022-06-22] MEDS: 0.9 % SODIUM CHLORIDE 500 ML 500 ML IV (14:17)
[2022-06-22] MEDS: POTASSIUM CHLORIDE 10 MEQ/100 ML PIGGYBACK 100 MEQ IVPB ×4 (14:17→18:40)
[2022-06-22 14:25] LABS: Chloride* 95 mmol/L (96-114); Sodium* 137 mmol/L (135-149)
[2022-06-22 14:28] LABS: Blood Urea Nitrogen* 8 mg/dL (7-30); Carbon Dioxide* 38 mmol/L (20-32); Est. Creatinine Clearance* 92.03; Estimated Glomerular Filt Rate 91 ml/min; Glucose* 139 mg/dL (60-115)
[2022-06-22 14:29] LABS: Calcium* 8.4 mg/dL (8.4-10.6)
[2022-06-22 14:37] LABS: Potassium* 2.1 mmol/L (3.6-5.1)
[2022-06-22 15:50] LABS: SARS PCR* Negative SARS-CoV-2 (Negative)
[2022-06-22 16:52] LABS: Potassium* 2.6 mmol/L (3.6-5.1)
[2022-06-22 19:05] LABS: Magnesium* 2.2 mg/dL (1.5-2.6)
[2022-06-22 20:23] LABS: Potassium* 2.7 mmol/L (3.6-5.1)
== END 2022-06-22 20:49 | disposition home or self-care (01) ==
LOC: ED 14:00
PROVIDERS: Family Medicine; Emergency Provider Family Medicine; PCP Family Medicine
DX: E87.6 Hypokalemia (principal)
CPT/HCPCS: 36415; 80048; 83735; 84132; 85025; 87635; 93005; 99284; 99285; A9270; J3480; J7120

== ENCOUNTER 2022-06-24 12:55 | Outpatient (CLI) | payer BC, SELFPAY | END 2022-06-24 12:56 | disposition home or self-care (01) | LOC: NFLDREF 12:56 | PROVIDERS: PCP Family Medicine; Visit Provider Family Medicine | DX: I10 Essential (primary) hypertension (principal); E78.5 Hyperlipidemia, unspecified; E87.6 Hypokalemia; F41.1 Generalized anxiety disorder | CPT/HCPCS: 84132 ==

== ENCOUNTER 2022-06-29 10:02 | Outpatient (CLI) | payer BC, SELFPAY | END 2022-06-29 10:03 | disposition home or self-care (01) | LOC: NFLDREF 10:03 | PROVIDERS: PCP Family Medicine; Visit Provider Family Medicine | DX: E87.6 Hypokalemia (principal); I10 Essential (primary) hypertension; E78.5 Hyperlipidemia, unspecified | CPT/HCPCS: 84132 ==

== ENCOUNTER 2022-07-07 08:34 | Outpatient (CLI) | payer BC, SELFPAY | END 2022-07-07 08:35 | disposition home or self-care (01) | LOC: NFLDREF 07-09 07:31 | PROVIDERS: PCP Family Medicine; Referring Provider Family Medicine; Visit Provider Family Medicine | DX: E87.6 Hypokalemia (principal) | CPT/HCPCS: 84132 ==

== ENCOUNTER 2022-09-05 08:22 | Outpatient (CLI) | payer BC, SELFPAY | END 2022-09-05 08:23 | disposition home or self-care (01) | PROVIDERS: PCP Family Medicine; Visit Provider Family Medicine | DX: I10 Essential (primary) hypertension (principal); E78.5 Hyperlipidemia, unspecified; D50.0 Iron deficiency anemia secondary to blood loss (chronic); E87.6 Hypokalemia; F41.1 Generalized anxiety disorder; E53.8 Deficiency of other specified B group vitamins | CPT/HCPCS: 80048; 80061; 84460; 85025 ==

== ENCOUNTER 2022-11-21 09:44 | Outpatient (CLI) | payer BC, SELFPAY | END 2022-11-21 09:45 | disposition home or self-care (01) | PROVIDERS: PCP Family Medicine; Visit Provider Family Medicine | DX: E53.8 Deficiency of other specified B group vitamins (principal); I10 Essential (primary) hypertension; E78.5 Hyperlipidemia, unspecified; E87.6 Hypokalemia | CPT/HCPCS: 80048; 83735; 84100 ==

== ENCOUNTER 2023-02-21 12:43 | Outpatient (CLI) | payer BC, SELFPAY | END 2023-02-21 12:44 | disposition home or self-care (01) | PROVIDERS: PCP Family Medicine; Visit Provider Family Medicine | DX: E78.5 Hyperlipidemia, unspecified (principal); I10 Essential (primary) hypertension; E53.8 Deficiency of other specified B group vitamins; E87.6 Hypokalemia; D50.0 Iron deficiency anemia secondary to blood loss (chronic) | CPT/HCPCS: 80048; 82043; 82570; 83735; 84133 ==

== ENCOUNTER 2023-04-28 09:38 | Outpatient (CLI) | payer BC, SELFPAY ==
--- OUTSIDE RECORDS SUMMARY | 2023-04-28 09:40 | XMS_ITS | Clinical Summary ---
Author Name Unknown Organization [facility] Address [place], [place] [address] Care Team Providers [facility] Name Role Phone Pcp, No Primary Care Provider Unavailabl e Allergies Active Allergy Reactions Criticality Noted Date Comments Ciprofloxacin Vomiting 05/04/2007 Rosuvastatin Nausea And Vomiting 04/04/2021 Triamterene-Hydrochlorothiazid Dizziness 08/06 Medications Medication Sig Dispensed Refills Start Date End Date Status DULoxetine (CYMBALTA) 60 mg Delayed-release capsuleIndications:Chucky payne depressive disorder, recurrent episode, moderate (HC) Take 1 capsule by mouth once daily. 90 capsule 3 05/30/2017 Active DULoxetine (CYMBALTA) 30 mg Delayed-release capsuleIndications:Chucky guerreroor depressive disorder, recurrent episode, moderate (HC) Take 1 capsule by mouth once daily. 90 capsule 3 05/30/2017 Active buPROPion (WELLBUTRIN XL) 300 mg Extended-Release tabletIndications:Oz portillo depressive disorder, recurrent episode, moderate (HC) Take 1 tablet by mouth every morning. 90 tablet 3 05/30/2017 Active metoprolol succinate (TOPROL XL) 100 mg Sustained-Release tablet Take 200 mg by mouth once daily. 0 06/04/2019 Active aspirin chewable 81 mg chewable tabletIndications:ST elevation myocardial infarction (STEMI), unspecified artery (HC) Take 1 tablet by mouth once daily. 0 06/17/2019 Active clopidogreL (PLAVIX) 75 mg tabletIndications:ST elevation myocardial infarction (STEMI), unspecified artery (HC) Take 1 tablet by mouth once daily. 90 tablet 3 06/17/2019 Active nitroglycerin (NITROSTAT) 0.4 mg sublingual tabletIndications:ST elevation myocardial infarction (STEMI), unspecified artery (HC) Place 1 tablet under the tongue every 5 minutes if needed. Max 3 doses. Call 911 if no relief as directed. 30 tablet 3 06/16/2019 Active acetaminophen (TYLENOL) 325 mg tablet Take 325-650 mg by mouth once daily if needed (headache). Max acetaminophen dose: 4000mg in 24 hrs. 0 Active omeprazole (PRILOSEC) 20 mg Delayed-Release capsuleIndications:N ausea and vomiting, intractability of vomiting not specified, unspecified vomiting type Take 1 capsule by mouth every morning 30 capsule 0 07/17/2019 Active ondansetron (ZOFRAN ODT) 4 mg disintegrating tabletIndications:Vo miting and diarrhea Place 1 tablet on the tongue every 8 hours if needed for Nausea/Vomiting. 12 tablet 0 07/17/2019 Active tamsulosin (FLOMAX) 0.4 mg capsule Take 0.4 mg by mouth once daily after a meal. 0 09/30/2019 Active meclizine (ANTIVERT) 25 mg tablet TK 1 T PO Q 8 H PRN 0 10/10/2019 Active amLODIPine (NORVASC) 10 mg tablet Take 10 mg by mouth once daily. 0 Active ARIPiprazole (Abilify) 30 mg tablet Take 30 mg by mouth once daily. 0 Active ferrous sulfate, 65 mg elemental, tablet Take 325 mg by mouth 2 times daily with meals. 0 Active magnesium oxide (MAG-OX 400) 400 mg tablet Take 400 mg by mouth 2 times daily. 0 Active losartan (COZAAR) 50 mg tablet Take 50 mg by mouth once daily. 0 Active spironolactone (ALDACTONE) 50 mg tablet Take 50 mg by mouth once daily. 0 Active potassium chloride (KLOR-CON M20) 20 mEq Extended-Release tabletIndications:Hy pokalemia Take 2 Tablets (40 mEq) by mouth 2 times daily with meals. 0 04/06/2021 Active furosemide (LASIX) 40 mg tabletIndications:Ch ronic diastolic congestive heart failure (HC) Take 1 Tablet (40 mg) by mouth every morning. 30 Tablet 0 04/07/2021 Active Active Problems Problem Noted Date Diagnosed Date Acute on chronic diastolic congestive heart fail ure 04/08/2021 Fever 04/04/2021 Hypoxia 04/04/[address] 04/04/2021 Abdominal pain 07/15/2019 Hyponatremia 07/15/2019 Acute kidney injury 07/15/2019 STEMI (ST elevation myocardial infarction) 06/14 HTN (hypertension) 06/15/2019 Anxiety and depression 06/15/2019 Tobacco use 06/15/2019 Leucocytosis 06/15/2019 Hyperglycemia 06/15/2019 Hyperlipidemia 02/09/2012 Hypertension 04/19/2011 Major depressive disorder, recurrent episode, mo derate 08/31/2008 Tobacco use disorder 05/07/2007 Resolved Problems Problem Noted Date Diagnosed Date Resolved Date Major depressive disorder, r ecurrent episode, mild 05/06/2007 08/31/2008 Immunizations Name Administration Dates Next Due [...] Tobacco Use Types Packs/Day Years Used Date Smoking Tobacco: Former Cigarettes Q uit: 06/14/2019 Smokeless Tobacco: Never Tobacco Cessation:Ready to Q uit: No; Counseling Given: Yes Alcohol Use Standard Drinks/Week Comments No 0 (1 standard drink = 0.6 oz pur e alcohol) PHQ-2 Answer Date Recorded PHQ-2 TOTAL SCORE 2 06/15/2019 Social Connections Answer Date Recorded Frequency of Communication with Friends and Fami ly Not on file 03/13/2021 Financial Resource Strain Answer Date R ecorded Difficulty of Paying Living Expenses Not on file 03/13/2021 Difficulty of Paying Living Expenses Not on file 03/13/2021 Sex and Gender Information Value Date Recorded Sex Assigned at Not on file Gender Identity Not on file Sexual Orientation Not on file Obstetrics History Last Filed Vital Signs Vital Sign Reading Time Taken Comments Blood Pressure 114/72 04/06/2021 12:[address] [employer]GGER OPERATOR Pulse 63 04/06/2021 12:[address] HOGGER OPERATOR Temperature 36.4 ??C (97.6 ??F) 04/06/2021 1 2:[address] HOGGER OPERATOR Respiratory Rate 16 04/06/2021 12:[address] [employer]GGER OPERATOR Oxygen Saturation 96% 04/06/2021 12: [address] HOGGER OPERATOR Inhaled Oxygen Concentration - - Weight 91.6 kg (201 lb 15.1 oz) 04/06/2021 6:[address] HOGGER OPERATOR Height 177.8 cm (5' 10) 04/04/2021 12: [address] HOGGER OPERATOR Body Mass Index 28.98 04/04/2021 12:[address] [employer]GGER OPERATOR Plan of Treatment Health Maintenance Due Date Last Done Comments Pneumococcal series for age 6-64 (1 of 2 - PCV) 07/31/1975 HIV for age 15-65 1984 Hepatitis C screening for ag e 18-79 07/31/1987 Colonoscopy through age 75 2014 Zoster (shingles) series for age 50+ (1 of 2) 07/31/2019 Depression screening for age 12+ 06/13/2020 06/14/2019, 09/05/2016, 11/17/2015 BMI (ht and wt on same day) for age 18+ 10/15/2020 10/16/2019, 05/30/2017, 09/05/2016, Additional history exists Tetanus booster 11/02/2020 11/02/2010, 11/02/2010 Lipids for age 45-75 05/30/2022 05/30/2017, 11/17/2015, 01/21/2013, Additional history exists COVID-19 vaccine series (2022- season) 2022 07/10/2020, 06/19/2020 Influenza for age 50-64 11/11/2022 Tdap Completed 11/02/2010 Advance Directives Latest Code Status on File Code Status Date Activated Date Inactivated Comments Full Code 04/04/2021 2:13 PM 04/06/2021 4:15 PM Question Answer Comments Code Status Discussion: Unable to Assess Preferences, Provider to review later Code Status History Code Status Date Activated Date Inactivated Comments Full Code 07/15/2019 9:37 PM 07/17/2019 4:42 PM Question Answer Comments Code Status Discussion: Discussed Full Code 06/14/2019 9:23 PM 06/16/2019 3:19 PM Full Code 06/14/2019 9:23 PM 06/14/2019 9:23 PM Care Teams [facility] Relationship Specialty Start Date End Date Pcp, No . PCP - General 12/04/21
== END 2023-04-28 09:39 | disposition home or self-care (01) ==
PROVIDERS: PCP Family Medicine; Visit Provider Family Medicine
DX: R53.1 Weakness (principal)
CPT/HCPCS: 80048

== ENCOUNTER 2024-03-04 15:43 | Outpatient (CLI) | payer BC, SELFPAY | END 2024-03-04 15:44 | disposition home or self-care (01) | PROVIDERS: PCP Family Medicine; Visit Provider Family Medicine | DX: I10 Essential (primary) hypertension (principal); E78.2 Mixed hyperlipidemia; D50.0 Iron deficiency anemia secondary to blood loss (chronic); Z12.5 Encounter for screening for malignant neoplasm of prostate | CPT/HCPCS: 80048; 80061; 83735; 85025; G0103 ==

== ENCOUNTER 2024-04-22 13:33 | Outpatient (CLI) | payer BC, SELFPAY | END 2024-04-22 13:34 | disposition home or self-care (01) | PROVIDERS: PCP Family Medicine; Visit Provider Family Medicine | DX: I10 Essential (primary) hypertension (principal); R06.02 Shortness of breath | CPT/HCPCS: 80048; 83880 ==

== ENCOUNTER 2024-05-03 09:25 | Emergency (ER) | payer BC, SELFPAY ==
--- OUTSIDE RECORDS SUMMARY | 2024-05-03 09:27 | XMS_ITS | Clinical Summary ---
Author Organization [facility] Address [address] [place] [id number] Care Team Providers Care Transfer Pumper Name Role Phone Pcp, No Primary Care Provider Unavailabl e Allergies Active Allergy Reactions Criticality Noted Date Comments Ciprofloxacin Vomiting 05/04/2007 Rosuvastatin Nausea And Vomiting 04/04/2021 Triamterene-Hydrochlorothiazid Dizziness 08/06 Medications DULoxetine (CYMBALTA) 60 mg Delayed-release capsuleIndications :Major depressive disorder, recurrent episode, moderate (HC) Take 1 capsule by mouth once daily. 90 capsule 3 05/31/19 18 Active DULoxetine (CYMBALTA) 30 mg Delayed-release capsuleIndications :Major depressive disorder, recurrent episode, moderate (HC) Take 1 capsule by mouth once daily. 90 capsule 3 05/31/19 18 Active buPROPion (WELLBUTRIN XL) 300 mg Extended-Release tabletIndications: Major depressive disorder, recurrent episode, moderate (HC) Take 1 tablet by mouth every morning. 90 tablet 3 05/31/19 18 Active metoprolol succinate (TOPROL XL) 100 mg Sustained-Release tablet Take 200 mg by mouth once daily. 06/04/19 20 Active aspirin chewable 81 mg chewable tabletIndications: ST elevation myocardial infarction (STEMI), unspecified artery (HC) Take 1 tablet by mouth once daily. 0 06/17/19 20 Active clopidogreL (PLAVIX) 75 mg tabletIndications: ST elevation myocardial infarction (STEMI), unspecified artery (HC) Take 1 tablet by mouth once daily. 90 tablet 3 0 12:57 PM CDT 06/17/19 20 Active nitroglycerin (NITROSTAT) 0.4 mg sublingual tabletIndications: ST elevation myocardial infarction (STEMI), unspecified artery (HC) Place 1 tablet under the tongue every 5 minutes if needed. Max 3 doses. Call 911 if no relief as directed. 30 tablet 3 0 12:57 PM CDT 06/16/19 20 Active acetaminophen (TYLENOL) 325 mg tablet Take 325-650 mg by mouth once daily if needed (headache). Max acetaminophen dose: 4000mg in 24 hrs. Active omeprazole (PRILOSEC) 20 mg Delayed-Release capsuleIndications :Nausea and vomiting, intractability of vomiting not specified, unspecified vomiting type Take 1 capsule by mouth every morning 30 capsule 0 10:06 AM CDT 07/17/19 20 Active ondansetron (ZOFRAN ODT) 4 mg disintegrating tabletIndications: Vomiting and diarrhea Place 1 tablet on the tongue every 8 hours if needed for Nausea/Vomiting. 12 tablet 0 10:06 AM CDT 07/17/19 20 Active tamsulosin (FLOMAX) 0.4 mg capsule Take 0.4 mg by mouth once daily after a meal. 09/30/19 20 Active meclizine (ANTIVERT) 25 mg tablet TK 1 T PO Q 8 H PRN 10/10/19 20 Active amLODIPine (NORVASC) 10 mg tablet Take 10 mg by mouth once daily. Active ARIPiprazole (Abilify) 30 mg tablet Take 30 mg by mouth once daily. Active ferrous sulfate, 65 mg elemental, tablet Take 325 mg by mouth 2 times daily with meals. Active magnesium oxide (MAG-OX 400) 400 mg tablet Take 400 mg by mouth 2 times daily. Active losartan (COZAAR) 50 mg tablet Take 50 mg by mouth once daily. Active spironolactone (ALDACTONE) 50 mg tablet Take 50 mg by mouth once daily. Active potassium chloride (KLOR-CON M20) 20 mEq Extended-Release tabletIndications: Hypokalemia Take 2 Tablets (40 mEq) by mouth 2 times daily with meals. 0 04/06/19 22 Active furosemide (LASIX) 40 mg tabletIndications: Chronic diastolic congestive heart failure (HC) Take 1 Tablet (40 mg) by mouth every morning. 30 Tablet 2 11:07 AM [employer] HELPER 04/07/19 22 Active Active Problems Problem Noted Date Diagnosed [...] Recorded Sex Assigned at Not on file Legal Sex Male 5:23 AM ST[employer] HELPER Gender Identity Not on file Sexual Orientation Not on file Occupation Industry Job Start Date Job End Date [employer] Not on file Not on file Not on file Obstetrics History Last Filed Vital Signs Vital Sign Reading Time Taken Comments Blood Pressure 114/72 04/06/2021 12:19 PM [employer] HELPER Pulse 63 04/06/2021 12:19 PM [employer] HELPER Temperature 36.4 C (97.6 F) 04/06/2021 12:19 PM [employer] HEL[employer] Respiratory Rate 16 04/06/2021 12:1 9 PM [employer] HELPER Oxygen Saturation 96% 04/06/2021 12: 19 PM [employer] HELPER Inhaled Oxygen Concentration - - Weight 91.6 kg (201 lb 15.1 oz) 04/06/2021 6:00 AM [employer] HEL[employer] Height 177.8 cm (5' 10) 04/04/2021 12: 30 PM [employer] HEL[employer] Body Mass Index 28.98 04/04/2021 12:30 PM [employer]ED [employer] HELPER Plan of Treatment Health Maintenance Due Date Last Done Comments HIV for age 15-65 1984 Hepatitis C screening for ag e 18-79 07/31/1987 Pneumococcal series for age 50+ (1 of 2 - PCV) 1988 Colonoscopy through age 75 2014 Zoster (shingles) series for age 50+ (1 of 2) 07/31/2019 Depression screening for age 12+ 06/13/2020 06/14/2019, 09/05/2016, 11/17/2015 BMI (ht and wt on same day) for age 18+ 10/15/2020 10/16/2019, 05/30/2017, 09/05/2016, Additional history exists Tetanus booster 11/02/2020 11/02/2010, 11/02/2010 Lipids for age 45-75 05/30/2022 05/30/2017, 11/17/2015, 01/21/2013, Additional history exists COVID-19 vaccine series ( season) 2023 07/10/2020, 06/19/2020 Influenza for age 50-64 11/12/2023 Tdap Completed 11/02/2010 Procedures Procedure Name Priority Date/Time Associated Diagnosis Comments LIPID PANEL W REFLEX MEASURED LDL Routine 05/30/2017 9:31 AM CDT Hypertension from Last 3 Months or Most Recently Relevant to Health Maintenance Results * (ABNORMAL) LIPID PANEL W REFLEX MEASURED LDL (05/30/2017 9:31 AM CDT) CHOLESTEROL,TOTAL 209(H) 100 - 199 mg/dL 05/30/2017 5:13 PM CDT [facility] TRIGLYCERIDES 141 <150 mg/dL 05/30/2017 5:13 PM CDT [facility] HDL CHOLESTEROL 37(L) >40 mg/dL 8 5:13 PM CDT [facility] NON-HDL CHOLESTEROL 172(H) <145 mg/dl 05/30/2017 5:13 PM CDT [facility] CHOL/HDL RATIO 5.65(H) <4.50 05/30/2017 5:13 PM CDT [facility] LDL CHOLESTEROL 144(H) <=130 mg/dL 05/30/2017 5:13 PM CDT [facility] PROVIDER ORDERED STATUS RANDOM 05/30/2017 5:13 PM CDT [facility] Blood BLOOD SPECIMEN / Unknown Venipuncture / Unknown 05/30/2017 9:31 AM CDT 05/30/2017 9:[address] MD CHEMISTRY Final Re sult [facility] [address] [place] [address], [facility] [address] [place] [address] from Last 3 Months or Most Recently Relevant to Health Maintenance Insurance [facility] Advance Directives * Full Code (Latest Code Status on File) Date Activated Date Inactivated Comments 04/04/2021 2:13 PM 04/06/2021 4:15 PM Question Answer Comments Code Status Discussion: Unable to Assess Preferences, Provider to review later * Full Code Date Activated Date Inactivated Comments 07/15/2019 9:37 PM 07/17/2019 4:42 PM Question Answer Comments Code Status Discussion: Discussed * Full Code Date Activated Date Inactivated Comments 06/14/2019 9:23 PM 06/16/2019 3:19 PM * Full Code Date Activated Date Inactivated Comments 06/14/2019 9:23 PM 06/14/2019 9:23 PM Care Teams Transfer Pumper Relationship Specialty Start Date End Date Pcp, No . PCP - General 12/04/21
[2024-05-03 09:28] VITALS: BP 99/64; PULSE 62; RESP 18; TEMP 36.3; O2SAT 99; BMI 36.0
--- NOTE | 2024-05-03 09:49 | ED.GENADULT ---
HPI - General Adult General Chief complaint: Extremity Pain/Injury, Lower Stated complaint: No circulation in feet, leg swelling Time Seen by Provider: 05/03/24 09:40 History of Present Illness HPI narrative: Patient is a 53-year-old gentleman with history of vascular disease and congestive heart failure who presents with burning in his legs with minimal activity. He has no symptoms at rest. He had no overt chest pain no shortness of breath no nausea no vomiting. He has what appears to be chronic neuropathy of his feet bilaterally. With numbness extends in stocking distribution bilaterally to his ankles. He quit smoking number years ago but does have the diagnosis of COPD. His symptoms have been progressive and his primary doctor did recently add Lasix to his regiment which is helped with the swelling but not with the discomfort in his thighs. Related Data Home Medications ?Medication ?Instructions ?Recorded ?Confirmed aspirin 81 mg chewable tablet 1 tab PO DAILY 09/22/21 04/22/24 tadalafil 20 mg tablet 20 mg PO .As Needed PRN 09/22/21 04/22/24 nitroglycerin 0.4 mg sublingual 0.4 mg sublingual .As Needed as 01/26/22 04/22/24 tablet needed PRN cyanocobalamin (vitamin B-12) 1,000 mcg PO DAILY 10/20/22 04/22/24 1,000 mcg tablet famotidine 20 mg tablet (Pepcid) 20 mg PO QDAY 11/21/22 04/22/24 Previous Rx's ?Medication ?Instructions ?Recorded albuterol sulfate 90 mcg/actuation 2 puff inhalation Q6H PRN 07/05/22 aerosol inhaler shortness of breath or wheezing #8.5 grams fluticasone 250 mcg-salmeterol 50 1 inh inhalation BID #60 ea 07/05/22 mcg/dose blistr powdr for inhalation (Advair Diskus) ferrous sulfate 325 mg (65 mg 325 mg PO BID #60 tabs 10/24/23 iron) tablet amlodipine 10 mg tablet 10 mg PO DAILY #90 tabs 03/04/24 aripiprazole 30 mg tablet 30 mg PO DAILY #90 tabs 03/04/24 bupropion HCl 300 mg 24 hr tablet, 300 mg PO DAILY #90 tabs 03/04/24 extended release clopidogrel 75 mg tablet 75 mg PO DAILY #90 tabs 03/04/24 duloxetine 30 mg capsule,delayed 30 mg PO QAM #90 caps 03/04/24 release duloxetine 60 mg capsule,delayed 60 mg PO QAM #90 caps 03/04/24 release gabapentin 300 mg capsule 300 mg PO TID #270 caps 03/04/24 magnesium oxide 400 mg (241.3 mg 400 mg PO QDAY #90 tabs 03/04/24 magnesium) tablet metoprolol succinate 200 mg 200 mg PO DAILY #90 tabs 03/04/24 tablet,extended release 24 hr potassium chloride 10 mEq 40 meq (4 x 10 mEq) PO TID 30 days 03/04/24 capsule,extended release #360 caps spironolactone 100 mg tablet 100 mg PO DAILY #90 tabs 03/04/24 losartan 50 mg tablet 50 mg PO DAILY #90 tabs 04/17/24 furosemide 20 mg tablet 20 mg PO BID #60 tabs 04/22/24 zolpidem 10 mg tablet 10 mg PO HS PRN insomnia #30 tabs 04/22/24 Allergies Allergy/AdvReac Type Severity Reaction Status Date / Time ciprofloxacin Allergy Severe violently Verified 04/22/24 13:17 ill rosuvastatin Allergy Unknown shutting Verified 04/22/24 13:17 kidneys down triamterene (From Maxzide) AdvReac Intermediate Verified 04/22/24 13:17 hydrochlorothiazide AdvReac Verified 04/22/24 13:17 Review of Systems Status of ROS: Reports: 10 or more systems reviewed and unremarkable except as noted in History and below [facility] Medical History Mixed hyperlipidemia ?E78.2 - Mixed hyperlipidemia (ICD-10) Primary hypertension ?I10 - Essential (primary) hypertension (ICD-10) ST elevation myocardial infarction (STEMI) (06/15/19) ?I21.3 - ST elevation (STEMI) myocardial infarction of unspecified site (ICD-10) Nocturia ?R35.1 - Nocturia (ICD-10) Iron deficiency anemia due to chronic blood loss ?D50.0 - Iron deficiency anemia secondary to blood loss (chronic) (ICD-10) COPD (chronic obstructive pulmonary disease) ?J44.9 - Chronic obstructive pulmonary disease, unspecified (ICD-10) B12 deficiency ?E53.8 - Deficiency of other specified B group vitamins (ICD-10) Peripheral neuropathy ?G62.9 - Polyneuropathy, unspecified (ICD-10) Colon polyps ?K63.5 - Polyp of colon (ICD-10) ASCVD (arteriosclerotic cardiovascular disease) ?I25.10 - Atherosclerotic heart disease of [place] coronary artery without angina pectoris (ICD-10) History of CHF (congestive heart failure) ?Z86.79 - Personal history of other diseases of the circulatory system (ICD-10) Hypokalemia ?E87.6 - Hypokalemia (ICD-10) Generalized anxiety disorder ?F41.1 - Generalized anxiety disorder (ICD-10) Moderate episode of recurrent major depressive disorder (08/31/08) ?F33.1 - Major depressive disorder, recurrent, moderate (ICD-10) Melena ?K92.1 - Melena (ICD-10) History of colonic polyps ?Z86.010 - Personal history of colonic polyps (ICD-10) Gastroesophageal reflux disease ?K21.9 - Gastro-esophageal reflux disease without esophagitis (ICD-10) Erectile dysfunction ?N52.9 - Male erectile dysfunction, unspecified (ICD-10) Family History Family/Other Stroke Prostate cancer Father High blood pressure Lung cancer Type 1 diabetes mellitus Daughter Anxiety Social History Narrative: tobacco use , 2 kids, 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, smoker, no EtOH What is your current living situation?: I presently have a place to live Problems where you live: no known problems In the past 12 months, utilities in danger of being shut off: no In past 12 months, lack of transportation kept you from medical appts, meetings, work, or getting things needed for daily living: no In the past 12 mos, have been you worried that your food would run out before you had money to buy more?: never true In the past 12 mos, the food you bought just didn't last and you didn't have money to buy more?: never true Smoking Status: Former smoker Do you use any of these nicotine containing products: None Second hand tobacco smoke exposure: No How often do you have a drink containing alcohol: never AUDIT-C Alcohol total score: 0 Non-prescribed substance use: denies use How often does anyone, including family, friends and others, physically hurt you: never How often does anyone, including family, friends and others, insult or talk down to you: never How often does anyone, including family, friends and others, threaten you with harm: never How often does anyone, including family, friends and others, scream or curse at you: never service: No Exam Narrative: Exam Narrative: EXAM GENERAL: Patient appears older than his stated age. EYES: No scleral icterus. ENT: Tympanic membranes and oropharynx normal. THYROID: no thyroid nodules or thyromegaly. LYMPH: No supraclavicular or cervical lymphadenopathy. SKIN: Visible skin seen during exam normal or with benign process only. EXT: No dependent lower extremity pedal edema. Neuropathy noted to the ankles bilaterally. HEART: Regular rate and rhythm with no murmurs, rubs, or gallops. LUNGS: Clear to auscultation bilaterally with no crackles or wheezes. ABD: Soft, non tender, non distended. PSYCH: Good eye contact, speech is not pressured. Const: Vital Signs, click to edit/add: Vital Signs - 24 hr 05/03/24 09:28 Temperature 97.3 F L Pulse Rate [Pulse Oximeter] 62 Respiratory Rate 18 Blood Pressure [Ri ght Upper Arm] 99/64 Pulse Oximetry 99 Oxygen Delivery Me thod Room Air Course Course ED Course: Patient seen examined troponin CBC comprehensive metabolic panel EKG chest x-ray pending. Vital Signs Vital signs: Initial Vital Signs Temperature 97.3 F L 05/03/24 09:28 Temperature Source Temporal Artery Scan 05/03/24 09:28 Pulse Rate 62 05/03/24 09:28 Respiratory Rate 18 05/03/24 09:28 Blood Pressure 99/64 05/03/24 09:28 Blood Pressure Mean 75 05/03/24 09:28 Blood Pressure Position Sitting 05/03/24 09:28 Pulse Oximetry 99 05/03/24 09:28 Oxygen Delivery Method Room Air 05/03/24 09:28 Vital Signs Temperature 97.3 F L 05/03/24 09:28 Pulse Rate 62 05/03/24 09:28 Respiratory Rate 18 05/03/24 09:28 Blood Pressure 99/64 05/03/24 09:28 Pulse Oximetry 99 05/03/24 09:28 Oxygen Delivery Method Room Air 05/03/24 09:28 Temperature 97.3 F L 05/03/24 09:28 Pulse Rate 62 05/03/24 09:28 Respiratory Rate 18 05/03/24 09:28 Blood Pressure 99/64 05/03/24 09:28 Pulse Oximetry 99 05/03/24 09:28 Oxygen Delivery Method Room Air 05/03/24 09:28 Medical Decision Making MDM Narrative Medical decision making narrative: Patient is a 53-year-old gentleman with history of coronary artery disease who presents with symptoms compatible with claudication of the lower extremities. EKG shows evidence of cardiomyopathy knee does have an enlarged heart on his cardiac silhouette. He has chronic appearing renal insufficiency with a creatinine of 2.0. He had a negative troponin. I do think that he needs to consult with Cardiology and potentially have some lower extremity vascular studies done specially given his history of heart disease. He is on a complex regiment and no longer smokes. Workup today is otherwise unremarkable. I did recommend follow-up with his primary doctor next week to discuss seeing a cardiovascular subspecialist. Lab Data Labs: Lab Results 05/03/24 Range/Units 09:55 WBC 8.83 (4.50-11.00) K/uL RBC 4.73 (4.30-5.90) m/uL Hgb 12.6 L (13.5-17.5) gm/dL Hct 40.9 (37.0-53.0) % MCV 87 (80-100) fL MCH 27 (26-34) pg MCHC 31 L (32-36) gm/dL RDW Coeff of Linus 14.5 (11.5-15.5) % Plt Count 332 (140-440) K/uL Neut % (Auto) 66.3 (42.0-72.0) % Lymph % (Auto) 18.5 L (20-44) % [place] % (Auto) 8.6 (0.0-11.0) % Eos % (Auto) 5.7 (0.0-7.0) % Baso % (Auto) 0.2 (0.0-3.0) % Neut # (Auto) 5.86 (1.7-7.0) K/uL Lymph # (Auto) 1.60 (0.90-2.90) K/uL [place] # (Auto) 0.80 (0.00-0.90) K/UL Eos # (Auto) 0.50 (0.00-0.50) K/uL Baso # (Auto) 0.02 (0.00-0.30) K/uL Abs Immat Gran (auto) 0.06 (0.00-0.30) K/uL Imm/Tot Granulo (auto) 0.7 % Sodium 133 L (135-149) mmol/L Potassium 4.3 (3.6-5.1) mmol/L Chloride 97 (96-114) mmol/L Carbon Dioxide 24 (20-32) mmol/L Anion Gap 12 (7-15) mEq/L BUN 19 (7-30) mg/dL Creatinine 2.2 H (0.5-1.5) mg/dL Estimated Creat Clear 39.63 Estimated GFR 35 ml/min Glucose 158 H (60-115) mg/dL Calcium 8.9 (8.4-10.6) mg/dL Total Bilirubin 0.6 (0.1-1.5) mg/dL AST 29 (12-35) U/L ALT 27 (4-50) U/L Alkaline Phosphatase 79 (40-150) U/L Troponin I < 0.01 L (0.01-0.04) ng/mL Total Protein 7.1 (6.0-8.3) g/dL Albumin 4.3 (3.3-5.0) g/dL Discharge Plan Discharge Clinical Impression: Claudication Patient Disposition: Home, Self-Care Condition: Stable Instructions: Peripheral Artery Disease (ED) Additional Instructions: Continue current medications Follow-up with your doctor next week to discuss referral to Cardiology. Activity Level: No Restrictions Discharge Diet: Regular Prescriptions: No Action fluticasone propion-salmeterol [Advair Diskus] 250-50 mcg/dose blister with device 1 inh inhalation BID Qty: 60 5RF albuterol sulfate 90 mcg/actuation HFA aerosol inhaler 2 puff inhalation Q6H PRN (Reason: shortness of breath or wheezing) Qty: 8.5 5RF aspirin 81 mg tablet,chewable 1 tab PO DAILY tadalafil 20 mg tablet 20 mg PO .As Needed PRN Rx Instructions: TAKE ONE TABLET 30 MIN TO 36 HRS PRIOR TO INTERCOURSE nitroglycerin 0.4 mg tablet, sublingual 0.4 mg sublingual .As Needed as needed PRN cyanocobalamin (vitamin B-12) 1,000 mcg tablet 1,000 mcg PO DAILY famotidine [Pepcid] 20 mg tablet 20 mg PO QDAY aripiprazole 30 mg tablet 30 mg PO DAILY Qty: 90 3RF bupropion HCl 300 mg tablet extended release 24 hr 300 mg PO DAILY Qty: 90 3RF clopidogrel 75 mg tablet 75 mg PO DAILY Qty: 90 3RF duloxetine 60 mg capsule,delayed release(DR/EC) 60 mg PO QAM Qty: 90 3RF Rx Instructions: Takes 90mg in the morning duloxetine 30 mg capsule,delayed release(DR/EC) 30 mg PO QAM Qty: 90 3RF Rx Instructions: total dose 90 mg magnesium oxide 400 mg (241.3 mg magnesium) tablet 400 mg PO QDAY Qty: 90 3RF spironolactone 100 mg tablet 100 mg PO DAILY Qty: 90 3RF potassium chloride 10 mEq capsule, extended release 40 meq PO TID 30 Days Qty: 360 5RF metoprolol succinate 200 mg tablet extended release 24 hr 200 mg PO DAILY Qty: 90 3RF amlodipine 10 mg tablet 10 mg PO DAILY Qty: 90 3RF gabapentin 300 mg capsule 300 mg PO TID Qty: 270 2RF Rx Instructions: Increase by one pill/day weekly to a target dose of 900 mg TID furosemide 20 mg tablet 20 mg PO BID Qty: 60 0RF zolpidem 10 mg tablet 10 mg PO HS PRN (Reason: insomnia) Qty: 30 2RF ferrous sulfate 325 mg (65 mg iron) tablet 325 mg PO BID Qty: 60 5RF losartan 50 mg tablet 50 mg PO DAILY Qty: 90 3RF Follow Up/Referrals: Poli Street MD [Primary Care Provider] - Stand Alone Forms: [employer] Info Instructions
[2024-05-03 10:04] LABS: Hematocrit 40.9 % (37.0-53.0); Hemoglobin* 12.6 gm/dL (13.5-17.5); Mean Corpuscular HGB Conc 31 gm/dL (32-36); Mean Corpuscular Hemoglobin 27 pg (26-34); Mean Corpuscular Volume 87 fL (80-100); Neutrophils Percent Auto 66.3 % (42.0-72.0); Platelet Count* 332 K/uL (140-440); RDW Coefficient of Variation % 14.5 % (11.5-15.5); Red Blood Count 4.73 m/uL (4.30-5.90); White Blood Count* 8.83 K/uL (4.50-11.00)
[2024-05-03 10:05] LABS: Basophils Absolute Auto 0.02 K/uL (0.00-0.30); Basophils Percent Auto 0.2 % (0.0-3.0); Eosinophils Percent Auto 5.7 % (0.0-7.0); Immature Granulocytes Abs Auto 0.06 K/uL (0.00-0.30); Immature Granulocytes Pct Auto 0.7 %; Lymphocytes Percent Auto 18.5 % (20-44); Monocytes Percent Auto 8.6 % (0.0-11.0); Neutrophils Absolute Auto 5.86 K/uL (1.7-7.0)
[2024-05-03 10:07] LABS: Slide Review Reflex No
--- OUTSIDE RECORDS SUMMARY | 2024-05-03 10:08 | XMS_ITS | Clinical Summary ---
Author Organization [employer] Address [address] [place] [id number] Care Team Providers Care Lining Repairer Name Role Phone Pcp, No Primary Care [...] every morning. 30 Tablet 2 11:07 AM TIP PUNCHER 04/07/19 22 Active Active Problems Problem Noted [...] on file Legal Sex Male 5:23 AM TIP PUNCHER Gender Identity Not on file Sexual Orientation Not on file Occupation Industry Job Start Date Job End Date [employer] Not on file Not on file Not on file Obstetrics History Last Filed Vital Signs Vital Sign Reading Time Taken Comments Blood Pressure 114/72 04/06/2021 12:19 PM TIP PUNCHER Pulse 63 04/06/2021 12:19 PM TIP PUNCHER Temperature 36.4 C (97.6 F) 04/06/2021 12:19 PM TIP PUNCHER Respiratory Rate 16 04/06/2021 12:1 9 PM TIP PUNCHER Oxygen Saturation 96% 04/06/2021 12: 19 PM TIP PUNCHER Inhaled Oxygen Concentration - - Weight 91.6 kg (201 lb 15.1 oz) 04/06/2021 6:00 AM TIP PUNCHER Height 177.8 cm (5' 10) 04/04/2021 12: 30 PM TIP PUNCHER Body Mass Index 28.98 04/04/2021 12:30 PM TIP PUNCHER Plan of Treatment Health Maintenance Due Date [...] - 199 mg/dL 05/30/2017 5:13 PM CDT [facility] TRIGLYCERIDES 141 <150 mg/dL 05/30/2017 5:13 PM CDT [facility] HDL CHOLESTEROL 37(L) >40 mg/dL 8 5:13 PM CDT [facility] NON-HDL CHOLESTEROL 172(H) <145 mg/dl 05/30/2017 5:13 PM CDT [facility] CHOL/HDL RATIO 5.65(H) <4.50 05/30/2017 5:13 PM CDT [facility] LDL CHOLESTEROL 144(H) <=130 mg/dL 05/30/2017 5:13 PM CDT [facility] PROVIDER ORDERED STATUS RANDOM 05/30/2017 5:13 PM CDT [facility] Blood BLOOD SPECIMEN / Unknown Venipuncture / Unknown 05/30/2017 9:31 AM CDT 05/30/2017 9:[address] MD CHEMISTRY Final Re sult [facility] [address] [place] [address], [facility] [address] [place] [address] from Last 3 Months or Most Recently Relevant to Health Maintenance Insurance [facility] Advance Directives * Full Code (Latest [...] 9:23 PM 06/14/2019 9:23 PM Care Teams Lining Repairer Relationship Specialty Start Date End Date Pcp, No . PCP - General 12/04/21
[2024-05-03 10:16] LABS: Albumin* 4.3 g/dL (3.3-5.0); Chloride* 97 mmol/L (96-114)
[2024-05-03 10:17] LABS: Potassium* 4.3 mmol/L (3.6-5.1); Sodium* 133 mmol/L (135-149)
[2024-05-03 10:19] LABS: Alkaline Phosphatase* 79 U/L (40-150); Anion Gap 12 mEq/L (7-15); Aspartate Amino Transferase* 29 U/L (12-35); Bilirubin Total* 0.6 mg/dL (0.1-1.5); Blood Urea Nitrogen* 19 mg/dL (7-30); Carbon Dioxide* 24 mmol/L (20-32); Creatinine* 2.2 mg/dL (0.5-1.5); Est. Creatinine Clearance* 39.63; Estimated Glomerular Filt Rate 35 ml/min; Total Protein* 7.1 g/dL (6.0-8.3)
[2024-05-03 10:20] LABS: Alanine Aminotransferase* 27 U/L (4-50); Calcium* 8.9 mg/dL (8.4-10.6); Glucose* 158 mg/dL (60-115)
[2024-05-03 10:32] LABS: Troponin I* < 0.01 ng/mL (0.01-0.04)
== END 2024-05-03 10:59 | disposition home or self-care (01) ==
PROVIDERS: Emergency Provider Internal Medicine; PCP Family Medicine
DX: I73.9 Peripheral vascular disease, unspecified (principal)
CPT/HCPCS: 36415; 71045; 80053; 84484; 85025; 93005; 99283; 99284

== ENCOUNTER 2024-05-13 13:33 | Outpatient (CLI) | payer BC, SELFPAY | END 2024-05-13 13:34 | disposition home or self-care (01) | LOC: US 13:33 | PROVIDERS: PCP Family Medicine; Visit Provider Family Medicine | DX: I73.9 Peripheral vascular disease, unspecified (principal); I21.4 Non-ST elevation (NSTEMI) myocardial infarction; R07.89 Other chest pain | CPT/HCPCS: 93924 ==

== ENCOUNTER 2024-05-14 07:42 | Outpatient (CLI) | payer BC, SELFPAY ==
[2024-05-14] MEDS: REGADENOSON 0.4 MG/5 ML SYRINGE IVP (08:49)
[2024-05-14] MEDS: SODIUM CHLORIDE 0.9 % (FLUSH) 10 ML SYRINGE IVF (08:49)
--- NOTE | 2024-05-14 09:11 | W.PM.STED ---
Stress Test Note Date Date Seen: 05/14/24 Date of test: 05/14/24 Providers Primary care provider: Poli Street Stress test physician: Colleen Sanders Stress Test Note Stress test ordered: Lexiscan Indication for test: chest pain Stress test medicine: Lexiscan Results discussion: Resting EKG: Sinus bradycardia, 56 beats per minute. Resting blood pressure: 128/85 Stress test: Patient is consented on nonwalking Lexiscan, agrees to proceed. He had mild shortness of breath with injection of the regadenoson but no chest pain. There was no diagnostic ischemic ischemic change but patient does seem to have some J-point elevation that was consistently present even on his resting EKG. He had no concerning blood pressure changes, no arrhythmia. Nuclear images Impression: Subjectively negative, objectively negative EKG portion of this Lexiscan. Follow up suggested: Patient is discharged to get his post-stress images. Await nuclear imaging to couple this for a full formal diagnostic. Patient is discharged in stable condition.
[2024-05-14 10:00] VITALS: BP 125/85; PULSE 67
== END 2024-05-14 07:43 | disposition home or self-care (01) ==
LOC: STRESS 07:43
PROVIDERS: PCP Family Medicine; Visit Provider Family Medicine
DX: R07.9 Chest pain, unspecified (principal)
CPT/HCPCS: 78452; 93016; 93017; A9500; J2785

== ENCOUNTER 2024-06-05 10:35 | Outpatient (CLI) | payer BC, SELFPAY | END 2024-06-05 10:36 | disposition home or self-care (01) | PROVIDERS: PCP Family Medicine; Visit Provider Family Medicine | DX: Z01.818 Encounter for other preprocedural examination (principal); I10 Essential (primary) hypertension; D50.0 Iron deficiency anemia secondary to blood loss (chronic); E87.6 Hypokalemia | CPT/HCPCS: 80048; 83735; 85025 ==

== ENCOUNTER 2024-08-14 12:45 | Outpatient (CLI) | payer BC, SELFPAY ==
--- NOTE | 2024-08-14 13:00 | CRLHL7_ITS ---
For Patients: As a result of the Century Cures Act, medical imaging exams and procedure reports are released immediately into your electronic medical record. You may view this report before your referring provider. If you have questions, please contact your health care provider. INDICATION: Low back pain. TECHNIQUE: Multisequence multiplanar MRI of the lumbar spine without the use of intravenous contrast. COMPARISON: Correlated with lumbar spine radiographs dated 08/06/2024. FINDINGS: Normal vertebral alignment, stature, and intrinsic marrow signal intensity. No T1 hypointense infiltrative lesion. Schmorl`s node at the L2 inferior endplate. Mild multilevel disc desiccation and height loss. The conus medullaris terminates normally at the L1-L2 level. Few subcentimeter renal parenchymal hyperintensities are statistically likely to represent cysts. T12-L1 and L1-L2: Shallow symmetric disc bulging. No significant spinal canal or neural foraminal stenosis. L2-L3: Symmetric disc bulge. Mild facet joint arthrosis. No significant spinal canal or neural foraminal stenosis. L3-L4: Symmetric disc bulge with small superimposed left subarticular disc protrusion (series 2, image 9). Mild facet joint arthrosis. Dorsal epidural lipomatosis contributing to mild-moderate spinal canal stenosis. Mild-moderate bilateral neural foraminal narrowing. L4-L5: Symmetric disc bulge. Mild facet joint arthrosis. No significant spinal canal or neural foraminal stenosis. L5-S1: Symmetric disc bulge. Mild facet joint arthrosis. No significant spinal canal or neural foraminal stenosis. IMPRESSION: 1. At L3-L4, symmetric disc bulge with small superimposed left subarticular disc protrusion, mild-moderate spinal canal stenosis in part due to dorsal epidural lipomatosis, and mild-moderate bilateral neural foraminal narrowing. 2. Mild spondylosis at the remaining levels without significant spinal canal or neural foraminal stenosis. Dictated by Morgan Stanton MD @ 08/14/2024 4:16:23 PM (Electronically Signed)
== END 2024-08-14 12:46 | disposition home or self-care (01) ==
LOC: MRI 12:46
PROVIDERS: PCP Family Medicine; Visit Provider Family Medicine
DX: M54.16 Radiculopathy, lumbar region (principal); M51.26 Other intervertebral disc displacement, lumbar region
CPT/HCPCS: 72148

== ENCOUNTER 2024-11-20 11:08 | Outpatient (CLI) | payer BC, SELFPAY | END 2024-11-20 11:09 | disposition home or self-care (01) | PROVIDERS: PCP Family Medicine; Visit Provider Family Medicine | DX: D50.0 Iron deficiency anemia secondary to blood loss (chronic) (principal); I10 Essential (primary) hypertension | CPT/HCPCS: 80048; 82607; 82728; 83735; 85025 ==

== ENCOUNTER 2025-01-08 17:57 | Inpatient (IN) | payer BC, SELFPAY ==
[2025-01-08] VITALS (25 sets, daily range): BP systolic 102–125; BP diastolic 44–83; PULSE 60–73; RESP 16–24; TEMP 35.9–36.8; O2SAT 94–100; BMI 36.9
--- NOTE | 2025-01-08 18:08 | ED_ITS ---
HPI - General Adult General Chief complaint: Weakness Stated complaint: Hemoglobin low, sent by clinic Time Seen by Provider: 01/08/25 18:08 History of Present Illness HPI narrative: Pt sent by the clinic for low hgb today of 5. 7. Pt reports ongoing intermittent dizziness and weakness associated with this. Also reports some ongoing dull hearing sometimes when he lies down. 54-year-old man presenting to the emergency department when notified of low hemoglobin by clinic where he had labs drawn today. Longstanding history of microcytic/iron deficiency anemia. He notes feeling more fatigued with exertion, short of breath over the last couple of weeks. He says he walks a certain distance and then his legs hurt. He endorses a peripheral neuropathy and with further questioning would sound like discomfort must be related to peripheral artery disease and claudication. Looks like SFA stenting bilaterally. Does have low back pain which might be contributing with radicular pain into the calves. Has also been having some lower abdominal discomfort over the last couple of weeks that is fairly constant. Says his stomach has been making a lot of noises. Mom arrives later saying that he is more bloated than she recalls ?he never used to have a stomach?. Sang says that there was no blood in his stool nor that he appears to be bleeding anywhere else. He indicates that he has had anemia before but no as ever really been able to determine where it is coming from. He has had upper and lower scopes. He has had iron infusions but no blood transfusions. Reviewing clinic records from 6 weeks ago I see that was noted to have iron deficiency anemia suspected secondary to upper GI bleed, chronic. At that time was discontinued on aspirin and ibuprofen and to restart Protonix. Sang says he has not had any fever. No cough or cold symptoms. No chest pain noted. Today followed up in clinic for recheck of labs from that November visit and was noted to have a hemoglobin of 5.7 and directed to the emergency department. Hemoglobin on November 20 was 8.0 May of 2024 myocardial perfusion scan with is abnormal with a small to medium sized area of mild trans mural infarction in the basal and mid inferior wall. Post stress left ventricular ejection fraction was 65% but overall left ventricular systolic function abnormal with mild regional hypokinesis of the basal inferior wall. ?no significant ischemia was identified?. March 2019 to pathology reports from EGD showing gastric ulcers in the antrum. 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 Internal hemorrhoids were also noted. Plan looks like was to repeat colonoscopy in 3 years. Sang thinks he is on a 5 year cycle. Related Data Home Medications ?Medication ?Instructions ?Recorded ?Confirmed aspirin 81 mg chewable tablet 1 tab PO DAILY 09/22/21 01/08/25 nitroglycerin 0.4 mg sublingual 0.4 mg sublingual .As Needed as 01/26/22 01/08/25 tablet needed PRN atorvastatin 40 mg tablet 40 mg PO DAILY 07/15/2412/12 torsemide 20 mg tablet 20 mg PO BID 07/15/24 Previous Rx's ?Medication ?Instructions ?Recorded albuterol sulfate 90 mcg/actuation 2 puff inhalation Q 6H PRN 07/05/22 aerosol inhaler shortness of breath or wheez ing #8.5 grams fluticasone 250 mcg-salmeterol 50 1 inh inhalation BID #60 ea 07/05/22 mcg/dose blistr powdr for inhalation (Advair Diskus) ferrous sulfate 325 mg (65 mg 325 mg PO BID #60 tabs 0 10/24/23 iron) tablet aripiprazole 30 mg tablet 30 mg PO DAILY #90 tabs 02/11 06/03 bupropion HCl 300 mg 24 hr tablet, 300 mg PO DAILY #90 tabs 03/04/24 extended release clopidogrel 75 mg tablet 75 mg PO DAILY #90 tabs 02/11 06/03 duloxetine 30 mg capsule,delayed 30 mg PO QAM #90 caps 03/04/24 release duloxetine 60 mg capsule,delayed 60 mg PO QAM #90 caps 03/04/24 release metoprolol succinate 200 mg 200 mg PO DAILY #90 tabs 1 05/05/23 tablet,extended release 24 hr spironolactone 100 mg tablet 100 mg PO DAILY #90 tabs 03/04/24 zolpidem 10 mg tablet 10 mg PO HS PRN insomnia #30 tabs 04/22/24 tamsulosin 0.4 mg capsule 0.4 mg PO DAILY #90 caps gabapentin 300 mg capsule 300 mg PO TID #270 caps 09/11 05/07 pantoprazole 40 mg tablet,delayed 40 mg PO QDAY #90 ta bs 11/20/24 release (Protonix) potassium chloride 10 mEq 30 meq (3 x 10 mEq) PO TID 3 0 days 11/26/24 capsule,extended release #270 caps Allergies Allergy/AdvReac Type Severity Reaction Status Date / Time ciprofloxacin Allergy Severe violently Verified 01/08/25 12:09 ill rosuvastatin Allergy Unknown shutting Verified 01/08/25 12:09 kidneys down triamterene (From Maxzide) AdvReac Intermediate Verified 01/08/25 12:09 hydrochlorothiazide AdvReac Verified 01/08/25 12:09 Review of Systems Status of ROS: Reports: 6 or more systems reviewed and unremarkable except as noted in History and below [facility] Medical History Mixed hyperlipidemia ?E78.2 - Mixed hyperlipidemia (ICD-10) Primary hypertension ?I10 - Essential (primary) hypertension (ICD-10) ST elevation myocardial infarction (STEMI) (06/15/19) ?I21.3 - ST elevation (STEMI) myocardial infarction of unspecified site (ICD- 10) Nocturia ?R35.1 - Nocturia (ICD-10) Iron deficiency anemia due to chronic blood loss ?D50.0 - Iron deficiency anemia secondary to blood loss (chronic) (ICD-10) COPD (chronic obstructive pulmonary disease) ?J44.9 - Chronic obstructive pulmonary disease, unspecified (ICD-10) B12 deficiency ?E53.8 - Deficiency of other specified B group vitamins (ICD-10) Peripheral neuropathy ?G62.9 - Polyneuropathy, unspecified (ICD-10) Colon polyps ?K63.5 - Polyp of colon (ICD-10) ASCVD (arteriosclerotic cardiovascular disease) ?I25.10 - Atherosclerotic heart disease of [place] coronary artery without angina pectoris (ICD-10) History of CHF (congestive heart failure) ?Z86.79 - Personal history of other diseases of the circulatory system (ICD- 10) Hypokalemia ?E87.6 - Hypokalemia (ICD-10) Generalized anxiety disorder ?F41.1 - Generalized anxiety disorder (ICD-10) Moderate episode of recurrent major depressive disorder (08/31/08) ?F33.1 - Major depressive disorder, recurrent, moderate (ICD-10) Melena ?K92.1 - Melena (ICD-10) History of colonic polyps ?Z86.010 - Personal history of colonic polyps (ICD-10) Gastroesophageal reflux disease ?K21.9 - Gastro-esophageal reflux disease without esophagitis (ICD-10) Erectile dysfunction ?N52.9 - Male erectile dysfunction, unspecified (ICD-10) Surgical History (Updated 01/08/25 @ 19:59 by Jessenia Richard MD) Presence of stent in artery ?Z95.828 - Presence of other vascular implants and grafts (ICD-10) Family History Family/Other Stroke Prostate cancer Father High blood pressure Lung cancer Type 1 diabetes mellitus Daughter Anxiety Social History Narrative: tobacco use , 2 kids, 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, smoker, no EtOH What is your current living situation?: I presently have a place to live Problems where you live: no known problems In the past 12 months, utilities in danger of being shut off: no In past 12 months, lack of transportation kept you from medical appts, meetings, work, or getting things needed for daily living: no In the past 12 mos, have been you worried that your food would run out before you had money to buy more?: never true In the past 12 mos, the food you bought just didn't last and you didn't have money to buy more?: never true Smoking Status: Former smoker Do you use any of these nicotine containing products: None Second hand tobacco smoke exposure: No How often do you have a drink containing alcohol: never AUDIT-C Alcohol total score: 0 Non-prescribed substance use: denies use How often does anyone, including family, friends and others, physically hurt you : never How often does anyone, including family, friends and others, insult or talk down to you: never How often does anyone, including family, friends and others, threaten you with harm: never How often does anyone, including family, friends and others, scream or curse at you: never service: No Exam Narrative: Exam Narrative: Very pleasant. Calm. Does appear tired. Is breathing easily. Oropharynx is hyperemic. Edentulous. Mucous membranes are pale about the eyes. Lungs are clear. Heart in regular rate and rhythm. Distant. Abdomen is overweight and soft. Is a little tender to palpation in the left lower quadrant reliably. Firm and no masses are appreciated. Tiny umbilical hernia. Extremities with venous varicosities and 1+ pitting edema bilaterally. I did return to collect stool Hemoccult. Light brown staining on glove. Const: Vital Signs, click to edit/add: Vital Signs - 24 hr 01/08/25 18:00 01/08/25 18:18 01/08/25 18:19 Temperature 96.7 F L Pulse Rate 63 63 Pulse Rate [Pulse Oximeter] 73 Respiratory Rate 20 20 18 Blood Pressure 106/56 L Blood Pressure [Ri ght Upper Arm] 103/63 Pulse Oximetry 100 97 100 Oxygen Delivery Me thod Room Air 01/08/25 18:30 01/08/25 18:30 01/08/25 18:32 Temperature Pulse Rate 62 64 Pulse Rate [Pulse Oximeter] Respiratory Rate 18 18 Blood Pressure 104/53 L Blood Pressure [Ri ght Upper Arm] Pulse Oximetry 97 98 97 Oxygen Delivery Me thod 01/08/25 18:45 01/08/25 19:00 01/08/25 19:05 Temperature Pulse Rate 63 60 61 Pulse Rate [Pulse Oximeter] Respiratory Rate 21 24 Blood Pressure 102/44 L Blood Pressure [Ri ght Upper Arm] Pulse Oximetry 98 97 97 Oxygen Delivery Me thod 01/08/25 19:15 01/08/25 19:36 Temperature Pulse Rate 64 71 Pulse Rate [Pulse Oximeter] Respiratory Rate 23 20 Blood Pressure Blood Pressure [Ri ght Upper Arm] Pulse Oximetry 99 96 Oxygen Delivery Me thod Documenting provider has reviewed patient's vital signs: yes Course Vital Signs Vital signs: Initial Vital Signs Temperature 96.7 F L 01/08/25 18:00 Temperature Source Temporal Artery Scan 01/08/25 18:00 Pulse Rate 73 01/08/25 18:00 Respiratory Rate 20 01/08/25 18:00 Blood Pressure 103/63 01/08/25 18:00 Blood Pressure Mean 76 01/08/25 18:00 Blood Pressure Position Sitting 01/08/25 18:00 Pulse Oximetry 100 01/08/25 18:00 Oxygen Delivery Method Room Air 01/08/25 18:00 Vital Signs Temperature 96.7 F L 01/08/25 18:00 Pulse Rate 73 01/08/25 18:00 Respiratory Rate 20 01/08/25 18:00 Blood Pressure 103/63 01/08/25 18:00 Pulse Oximetry 100 01/08/25 18:00 Oxygen Delivery Method Room Air 01/08/25 18:00 Temperature 96.7 F L 01/08/25 18:00 Pulse Rate 71 01/08/25 19:36 Respiratory Rate 20 01/08/25 19:36 Blood Pressure 102/44 L 01/08/25 19:05 Pulse Oximetry 96 01/08/25 19:36 Oxygen Delivery Method Room Air 01/08/25 18:00 Medical Decision Making MDM Narrative Medical decision making narrative: Number factors might be contributing to anemia including some degree of renal dysfunction, suspected chronic blood loss, B12 deficiency though this is a microcytic anemia historically. Abdominal pain might represent diverticulitis, mass. Did have some polyps on colonoscopy but they were not high grade. On EGD prior with antral ulcers thought secondary to crystalline iron ingestion. Blood pressures on review or little lower than prior. Initially 103/63. Looks like in November clinic visit was 96/54. Prior to that in 120s 130s over 80s. With being symptomatic and relatively hypotensive and hemoglobin to this degree of anemia would be desirable to transfuse packed red cells as opposed to only iron infusion. I am anticipating contrasted CT of abdomen and pelvis changes noted in his abdomen and discomfort on abdominal exam. Is on the lower end of acceptable GFR for contrasted scan. Will bolus 500 mL normal saline also with blood pressure 102/44. CT abdomen pelvis with IV contrast by my independent review looks relatively unremarkable. I do see separation of structures in the abdomen consistent with intra-abdominal fat. Perhaps this is the distension that he and mom have been noticing. Radiology over-read below. Indication: ABD DISTENTION, ANEMIA, LEFT LOWER ABD PAIN, FATIGUED, SOB Technique: CT abdomen/pelvis with IV contrast utilizing 122 mL Isovue 370 Comparison: CT abdomen/pelvis on April 08, 2022 Findings: Lower thorax: Trace bibasilar linear atelectasis. Abdomen/pelvis: Stable subcentimeter hypoattenuating lesion in the right hepatic lobe, too small to characterize, but likely a small benign cyst. Regions of geographic steatosis in the right hepatic lobe. No suspicious hepatic lesions. The gallbladder and biliary system are unremarkable. The spleen, pancreas, and adrenal glands are unremarkable. The kidneys are normal in size and perfuse in a normal fashion. Subcentimeter cyst in the interpolar region of the left hepatic lobe. No suspicious enhancing renal masses or lesions. No renal calculi or hydroureteronephrosis. The bladder is unremarkable. The seminal vesicles and prostate are unremarkable. No bowel obstruction or inflammation. The appendix is normal. No free air, free fluid, or abscess. No abdominopelvic lymphadenopathy. Mild atherosclerosis of the aortoiliac system. Soft tissue/musculoskeletal: Diastasis recti with tiny fat containing umbilical hernia. The bones are unremarkable for the patient`s age. Impression: 1. No CT evidence of an acute process involving the abdomen or pelvis. 2. Incidental findings as detailed above. Please note that all CT scans at this facility use dose modulation, iterative reconstruction, and/or weight-based dosing when appropriate to reduce radiation dose to as low as reasonably achievable. Dictated by Roshan Rasheed MD @ 01/08/2025 8:00:08 PM I did review medication list with Mr. Norris his mother. Discrepancies with what is listed in record include taking amlodipine 10 mg daily which they held yesterday because he was feeling bad, taking losartan 50 mg daily, is taking ibuprofen occasionally, taking iron sulfate 325 mg once daily, not taking aspirin, no zolpidem, no torsemide, no furosemide, no pantoprazole, no potassium Discussed this case with our hospitalist for admission and likely morning EGD. Anticipating shortly that he will be receiving 2 units of packed red cells. Medical Records Medical records reviewed: Yes I reviewed the patient's medical records Lab Data Lab results reviewed: Yes I reviewed the patient's lab results Labs: Lab Results 01/08/25 01/08/25 01/08/25 Range/Units 18:12 18:29 19:14 WBC 8.66 (4.50-11.00) K/uL RBC 2.72 L (4.30-5.90) m/uL Hgb 5.4 L* (13.5-17.5) gm/dL Hct 19.5 L (37.0-53.0) % MCV 72 L (80-100) fL MCH 20 L (26-34) pg MCHC 28 L (32-36) gm/dL RDW Coeff of Linus 17.4 H (11.5-15.5) % Plt Count 331 (140-440) K/uL Neut % (Auto) 68.1 (42.0-72.0) % Lymph % (Auto) 19.5 L (20-44) % [place] % (Auto) 6.9 (0.0-11.0) % Eos % (Auto) 3.8 (0.0-7.0) % Baso % (Auto) 0.7 (0.0-3.0) % Neut # (Auto) 5.89 (1.7-7.0) K/uL Lymph # (Auto) 1.70 (0.90-2.90) K/uL [place] # (Auto) 0.60 (0.00-0.90) K/UL Eos # (Auto) 0.33 (0.00-0.50) K/uL Baso # (Auto) 0.06 (0.00-0.30) K/uL Abs Immat Gran (auto) 0.09 (0.00-0.30) K/uL Imm/Tot Granulo (auto) 1.0 % INR 1.03 (0.91-1.10) APTT 30 (23-33) Seconds Sodium 135 (135-149) mmol/L Potassium 4.2 (3.6-5.1) mmol/L Chloride 101 (96-114) mmol/L Carbon Dioxide 23 (20-32) mmol/L Anion Gap 11 (7-15) mEq/L BUN 29 (7-30) mg/dL Creatinine 2.1 H (0.5-1.5) mg/dL Estimated Creat Clear 39.75 Estimated GFR 36 ml/min Glucose 133 H (60-115) mg/dL Calcium 8.9 (8.4-10.6) mg/dL Total Bilirubin 0.5 (0.1-1.5) mg/dL Direct Bilirubin 0.4 (0.0-0.5) mg/dL AST 27 (12-35) U/L ALT 27 (4-50) U/L Alkaline Phosphatase 82 (40-150) U/L Total Protein 6.6 (6.0-8.3) g/dL Albumin 3.9 (3.3-5.0) g/dL Stool Occult Blood Negative (Negative) Lab Acknowledgement POC Troponin I 0.01 (0.01-0.04) ng/ml 01/08/25 Range/Units 19:29 WBC (4.50-11.00) K/uL RBC (4.30-5.90) m/uL Hgb (13.5-17.5) gm/dL Hct (37.0-53.0) % MCV (80-100) fL MCH (26-34) pg MCHC (32-36) gm/dL RDW Coeff of Linus (11.5-15.5) % Plt Count (140-440) K/uL Neut % (Auto) (42.0-72.0) % Lymph % (Auto) (20-44) % [place] % (Auto) (0.0-11.0) % Eos % (Auto) (0.0-7.0) % Baso % (Auto) (0.0-3.0) % Neut # (Auto) (1.7-7.0) K/uL Lymph # (Auto) (0.90-2.90) K/uL [place] # (Auto) (0.00-0.90) K/UL Eos # (Auto) (0.00-0.50) K/uL Baso # (Auto) (0.00-0.30) K/uL Abs Immat Gran (auto) (0.00-0.30) K/uL Imm/Tot Granulo (auto) % INR (0.91-1.10) APTT (23-33) Seconds Sodium (135-149) mmol/L Potassium (3.6-5.1) mmol/L Chloride (96-114) mmol/L Carbon Dioxide (20-32) mmol/L Anion Gap (7-15) mEq/L BUN (7-30) mg/dL Creatinine (0.5-1.5) mg/dL Estimated Creat Clear Estimated GFR ml/min Glucose (60-115) mg/dL Calcium (8.4-10.6) mg/dL Total Bilirubin (0.1-1.5) mg/dL Direct Bilirubin (0.0-0.5) mg/dL AST (12-35) U/L ALT (4-50) U/L Alkaline Phosphatase (40-150) U/L Total Protein (6.0-8.3) g/dL Albumin (3.3-5.0) g/dL Stool Occult Blood (Negative) Lab Acknowledgement Test Added POC Troponin I (0.01-0.04) ng/ml ECG Data Attestation: I personally reviewed and interpreted this ECG as follows: (Normal sinus rhythm. I do not appreciate ischemic changes. Rate of 66. Looks similar to prior from April of 2024. ) Critical Care Time Critical Care Time Critical Care Time: Yes Attestation: The patient required my highest level preparedness to intervene emergently and I personally spent this critical care time directly and personally managing the patient. This critical care time included: Obtaining a history; Examining the patient; Pulse oximetry; Ordering and reviewing of studies; Arranging urgent treatment with development of a management plan; Evaluation of patients response to treatment; Frequent reassessment discussions with other providers. This critical care time was performed to assess and manage the high probability of imminent life-threatening deterioration that could result in multiorgan failure. It was exclusive of separate billable procedures and treating other patients and teaching time. Total Critical Care Time in Minutes: 70 Discharge Plan Discharge Clinical Impression: Symptomatic anemia, Microcytic anemia, Fatigue Patient Disposition: Admitted As Observation Condition: Stable
[2025-01-08 18:31] LABS: Troponin, Point-of-Care* 0.01 ng/ml (0.01-0.04)
[2025-01-08 18:48] LABS: Hematocrit* 19.5 % (37.0-53.0); Immature Granulocytes Abs Auto 0.09 K/uL (0.00-0.30); Immature Granulocytes Pct Auto 1.0 %; Mean Corpuscular HGB Conc 28 gm/dL (32-36); Mean Corpuscular Hemoglobin 20 pg (26-34); Mean Corpuscular Volume 72 fL (80-100); RDW Coefficient of Variation % 17.4 % (11.5-15.5); Red Blood Count* 2.72 m/uL (4.30-5.90); White Blood Count* 8.66 K/uL (4.50-11.00)
[2025-01-08 18:50] LABS: Albumin* 3.9 g/dL (3.3-5.0); Chloride* 101 mmol/L (96-114); Potassium* 4.2 mmol/L (3.6-5.1); Sodium* 135 mmol/L (135-149)
[2025-01-08 18:51] LABS: Hemoglobin* 5.4 gm/dL (13.5-17.5); Lymphocytes Absolute Auto 1.70 K/uL (0.90-2.90); Slide Review Reflex Yes
--- NOTE | 2025-01-08 18:52 | ED.NURSE ---
Call from lab, critical hg 5.4. Care nurse and MD updated.
[2025-01-08 18:53] LABS: Alanine Aminotransferase* 27 U/L (4-50); Alkaline Phosphatase* 82 U/L (40-150); Anion Gap 11 mEq/L (7-15); Aspartate Amino Transferase* 27 U/L (12-35); Bilirubin Direct* 0.4 mg/dL (0.0-0.5); Bilirubin Total* 0.5 mg/dL (0.1-1.5); Blood Urea Nitrogen* 29 mg/dL (7-30); Carbon Dioxide* 23 mmol/L (20-32); Creatinine* 2.1 mg/dL (0.5-1.5); Est. Creatinine Clearance* 39.75; Estimated Glomerular Filt Rate 36 ml/min; Total Protein* 6.6 g/dL (6.0-8.3)
[2025-01-08 18:54] LABS: Calcium* 8.9 mg/dL (8.4-10.6); Glucose* 133 mg/dL (60-115)
[2025-01-08 19:07] LABS: INR 1.03 (0.91-1.10); Prothrombin Time 14.3 Seconds
--- NOTE | 2025-01-08 19:13 | CRLHL7_ITS ---
For Patients: As a result of the Century Cures Act, medical imaging exams and procedure reports are released immediately into your electronic medical record. You may view this report before your referring provider. If you have questions, please contact your health care provider. Indication: ABD DISTENTION, ANEMIA, LEFT LOWER ABD PAIN, FATIGUED, SOB Technique: CT abdomen/pelvis with IV contrast utilizing 122 mL Isovue 370 Comparison: CT abdomen/pelvis on April 08, 2022 Findings: Lower thorax: Trace bibasilar linear atelectasis. Abdomen/pelvis: Stable subcentimeter hypoattenuating lesion in the right hepatic lobe, too small to characterize, but likely a small benign cyst. Regions of geographic steatosis in the right hepatic lobe. No suspicious hepatic lesions. The gallbladder and biliary system are unremarkable. The spleen, pancreas, and adrenal glands are unremarkable. The kidneys are normal in size and perfuse in a normal fashion. Subcentimeter cyst in the interpolar region of the left hepatic lobe. No suspicious enhancing renal masses or lesions. No renal calculi or hydroureteronephrosis. The bladder is unremarkable. The seminal vesicles and prostate are unremarkable. No bowel obstruction or inflammation. The appendix is normal. No free air, free fluid, or abscess. No abdominopelvic lymphadenopathy. Mild atherosclerosis of the aortoiliac system. Soft tissue/musculoskeletal: Diastasis recti with tiny fat containing umbilical hernia. The bones are unremarkable for the patient`s age. Impression: 1. No CT evidence of an acute process involving the abdomen or pelvis. 2. Incidental findings as detailed above. Please note that all CT scans at this facility use dose modulation, iterative reconstruction, and/or weight-based dosing when appropriate to reduce radiation dose to as low as reasonably achievable. Dictated by Roshan Rasheed MD @ 01/08/2025 8:00:08 PM (Electronically Signed)
[2025-01-08 19:33] LABS: Fecal Occult Blood* Negative (Negative)
[2025-01-08] MEDS: 0.9 % SODIUM CHLORIDE 500 ML 500 ML IV (20:00)
--- NOTE | 2025-01-08 20:12 | P.IMHP_ITS ---
Assessment and Plan Assessment and plan (1) Microcytic anemia: Problem comment: - Hgb of 5.4 on 01/08, presumed UGIB given history of this - 2U of PRBCs ordered upon admission, will follow Hgb after transfusion - HOLD Plavix (had stopped ASA in 11/2024), + PPI - EGD ordered Status: Acute (2) CKD (chronic kidney disease) stage 3, GFR 30-59 ml/min: Problem comment: - decrease in GFR first noted 04/2024, baseline creatinine 2.0-2.2 Status: Acute (3) PAD (peripheral artery disease): Problem comment: - with claudication, follows with Dr. Ocampo at [facility] (was on ASA and Plavix) - s/p bilateral SFA DCBs and bilateral SFA stents 06/2024 Status: Acute (4) CHF (congestive heart failure): Problem comment: - HFpEF, last TTE 06/2024 with results below - appears mildly fluid up, will give IV Lasix after transfusion, follow daily weights, Is/Os Final Impressions: 1. Normal left ventricular size, normal wall thickness, normal global and regional systolic function, calculated EF of 63 %. 2. Normal diastolic function. 3. Right ventricular cavity size is normal, global systolic RV function is normal. 4. The aortic valve is trileaflet, no stenosis and mild regurgitation. 5. The inferior vena cava is normal sized, respiratory size variation greater than 50%. Status: Acute (5) Gastroesophageal reflux disease: Problem comment: - continue PPI, EGD 01/09 Status: Acute (6) ASCVD (arteriosclerotic cardiovascular disease): Problem comment: - DE in 2019, s/p proximal RCA ALONDRA 06/2019 - continue statin, spironolactone Status: Acute Plan - per above - updated bedside, questions answered Hospitalist- H&P: HPI History of Present Illness Date Seen: 01/08/25 Chief complaint: Hemoglobin low, sent by clinic Narrative: Sang Blandon is a 54 year old male who presented to the emergency room this afternoon at the behest of his PCP for acutely worsened anemia. Noted to have a hemoglobin of 8.0 in November (previously 12-16); at that time his aspirin was discontinued. Today, he was seen by his PCP again and hemoglobin noted to be 5.7 with an MCV of 72 and ferritin of 4.7; called back to ER for evaluation. Has felt more tired than usual recently. No stool changes, no diet changes. Vomited once over the weekend (thinks this was 2/2 taking too much Gabapentin), no hematemesis. ER Course and Findings: - Hgb 5.2, normal WBC, normal platelets - normal electrolytes, Creatinine 2.1 (baseline), no proteinuria or other abnormalities on UA - BP on the low side for patient (102/49), P 70s - negative stool occult blood - no acute findings on A/P CT Admitted to the hospital for workup of anemia + transfusion. 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 Last Colonoscopy 2022; had 2 polyps removed (one advanced tubular adenoma measuring 10mm) + diverticulosis. Review of Systems Status of ROS: Reports: 10 or more systems reviewed and unremarkable except as noted in History and below Narrative: - has been feeling weaker than usual - notes intermittent dyspnea on exertion for awhile, no chest pain - mild ankle edema - no orthopnea or PND - not sleeping well, wonders if he has a little ALEXA - doesn't weigh himself regularly, wonders if he's up in weight a little recently Medical Decision Making Medical Decision Making Code Status: Full Has patient completed a Health Care Directive: No During This Stay, Who Would You Like To Make Decisions For You In The Event You Are Unable To Make Them For Yourself?: [facility] Medical History (Updated 01/08/25 @ 22:04 by Jessenia Richard MD) CKD (chronic kidney disease) stage 3, GFR 30-59 ml/min ?N18.30 - Chronic kidney disease, stage 3 unspecified (ICD-10) Mixed hyperlipidemia ?E78.2 - Mixed hyperlipidemia (ICD-10) Primary hypertension ?I10 - Essential (primary) hypertension (ICD-10) ST elevation myocardial infarction (STEMI) (06/15/19) ?I21.3 - ST elevation (STEMI) myocardial infarction of unspecified site (ICD- 10) Nocturia ?R35.1 - Nocturia (ICD-10) Iron deficiency anemia due to chronic blood loss ?D50.0 - Iron deficiency anemia secondary to blood loss (chronic) (ICD-10) COPD (chronic obstructive pulmonary disease) ?J44.9 - Chronic obstructive pulmonary disease, unspecified (ICD-10) B12 deficiency ?E53.8 - Deficiency of other specified B group vitamins (ICD-10) Peripheral neuropathy ?G62.9 - Polyneuropathy, unspecified (ICD-10) Colon polyps ?K63.5 - Polyp of colon (ICD-10) ASCVD (arteriosclerotic cardiovascular disease) ?I25.10 - Atherosclerotic heart disease of [place] coronary artery without angina pectoris (ICD-10) History of CHF (congestive heart failure) ?Z86.79 - Personal history of other diseases of the circulatory system (ICD- 10) Hypokalemia ?E87.6 - Hypokalemia (ICD-10) Generalized anxiety disorder ?F41.1 - Generalized anxiety disorder (ICD-10) Moderate episode of recurrent major depressive disorder (08/31/08) ?F33.1 - Major depressive disorder, recurrent, moderate (ICD-10) Melena ?K92.1 - Melena (ICD-10) History of colonic polyps ?Z86.010 - Personal history of colonic polyps (ICD-10) Gastroesophageal reflux disease ?K21.9 - Gastro-esophageal reflux disease without esophagitis (ICD-10) Erectile dysfunction ?N52.9 - Male erectile dysfunction, unspecified (ICD-10) Surgical History (Updated 01/08/25 @ 19:59 by Jessenia Richard MD) Presence of stent in artery ?Z95.828 - Presence of other vascular implants and grafts (ICD-10) Family History Family/Other Stroke Prostate cancer Father High blood pressure Lung cancer Type 1 diabetes mellitus Daughter Anxiety Social History (Updated 01/08/25 @ 21:41 by Jessenia Richard MD) Narrative: Previous smoker (quit in 2020 after first DE). 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 Full Code What is your current living situation?: I presently have a place to live Problems where you live: no known problems In the past 12 months, utilities in danger of being shut off: no In past 12 months, lack of transportation kept you from medical appts, meetings, work, or getting things needed for daily living: no In the past 12 mos, have been you worried that your food would run out before you had money to buy more?: never true In the past 12 mos, the food you bought just didn't last and you didn't have money to buy more?: never true Smoking Status: Former smoker Do you use any of these nicotine containing products: None Second hand tobacco smoke exposure: No How often do you have a drink containing alcohol: never AUDIT-C Alcohol total score: 0 Non-prescribed substance use: denies use How often does anyone, including family, friends and others, physically hurt you : never How often does anyone, including family, friends and others, insult or talk down to you: never How often does anyone, including family, friends and others, threaten you with harm: never How often does anyone, including family, friends and others, scream or curse at you: never service: No Meds Home Medications and Allergies Home Medications ?Medication ?Instructions ?Recorded ?Confirmed ?Type aspirin 81 mg chewable tablet 1 tab PO DAILY 09/22/21 01/08/25 History nitroglycerin 0.4 mg sublingual 0.4 mg sublingual .As Needed as 01/26/22 01/08/25 History tablet needed PRN albuterol sulfate 90 mcg/actuation 2 puff inhalation Q 6H PRN 07/05/22 01/08/25 Rx aerosol inhaler shortness of breath or wheez ing #8.5 grams fluticasone 250 mcg-salmeterol 50 1 inh inhalation BID #60 ea 07/05/22 01/08/25 Rx mcg/dose blistr powdr for inhalation (Advair Diskus) ferrous sulfate 325 mg (65 mg 325 mg PO BID #60 tabs 0 10/24/23 01/08/25 Rx iron) tablet aripiprazole 30 mg tablet 30 mg PO DAILY #90 tabs 02/1101/08/25 Rx bupropion HCl 300 mg 24 hr tablet, 300 mg PO DAILY #90 tabs 03/04/24 01/08/25 Rx extended release clopidogrel 75 mg tablet 75 mg PO DAILY #90 tabs 02/1101/08/25 Rx duloxetine 30 mg capsule,delayed 30 mg PO QAM #90 caps 03/04/24 01/08/25 Rx release duloxetine 60 mg capsule,delayed 60 mg PO QAM #90 caps 03/04/24 01/08/25 Rx release metoprolol succinate 200 mg 200 mg PO DAILY #90 tabs 1 05/05/23 01/08/25 Rx tablet,extended release 24 hr spironolactone 100 mg tablet 100 mg PO DAILY #90 tabs 03/04/24 01/08/25 Rx zolpidem 10 mg tablet 10 mg PO HS PRN insomnia #30 tabs 04/22/24 01/08/25 Rx atorvastatin 40 mg tablet 40 mg PO DAILY 07/15/2412/12 History torsemide 20 mg tablet 20 mg PO BID 07/15/24 History tamsulosin 0.4 mg capsule 0.4 mg PO DAILY #90 caps 01/08/25 Rx gabapentin 300 mg capsule 300 mg PO TID #270 caps 09/1101/08/25 Rx pantoprazole 40 mg tablet,delayed 40 mg PO QDAY #90 ta bs 11/20/24 01/08/25 Rx release (Protonix) potassium chloride 10 mEq 30 meq (3 x 10 mEq) PO TID 3 0 days 11/26/24 01/08/25 Rx capsule,extended release #270 caps losartan 50 mg tablet 50 mg PO DAILY 01/08/2512/12 History Home Medication Comments: Currently not on aspirin, is taking Plavix States not on torsemide or furosemide at this time, taking spironolactone Allergies Allergy/AdvReac Type Severity Reaction Status Date / Time ciprofloxacin Allergy Severe violently Verified 01/08/25 12:09 ill rosuvastatin Allergy Unknown shutting Verified 01/08/25 12:09 kidneys down triamterene (From Maxzide) AdvReac Intermediate Verified 01/08/25 12:09 hydrochlorothiazide AdvReac Verified 01/08/25 12:09 Exam Narrative: Exam Narrative: GEN: Alert and oriented, laying comfortably in bed HEENT: Mild edema of eyelids, EOMIs bilaterally, no scleral icterus, + pallor CV: RRR, No concerning murmurs R: LCTA bilaterally Ab: Protuberant, mild discomfort with palpation of RUQ, no rebound or guarding, negative Villa's sign Ext: wwp, trace BLE ankle edema Skin: No concerning skin lesions or rashes on exposed skin Neuro: No focal deficits Psych: Appropriate Const: Vital Signs, click to edit/add: Vital Signs - 24 hr 01/08/25 18:00 01/08/25 18:18 01/08/25 18:19 Temperature 96.7 F L Pulse Rate 63 63 Pulse Rate [Pulse Oximeter] 73 Respiratory Rate 20 20 18 Blood Pressure 106/56 L Blood Pressure [Ri ght Upper Arm] 103/63 Pulse Oximetry 100 97 100 Oxygen Delivery Me thod Room Air 01/08/25 18:30 01/08/25 18:30 01/08/25 18:32 Temperature Pulse Rate 62 64 Pulse Rate [Pulse Oximeter] Respiratory Rate 18 18 Blood Pressure 104/53 L Blood Pressure [Ri ght Upper Arm] Pulse Oximetry 97 98 97 Oxygen Delivery Me thod 01/08/25 18:45 01/08/25 19:00 01/08/25 19:05 Temperature Pulse Rate 63 60 61 Pulse Rate [Pulse Oximeter] Respiratory Rate 21 24 Blood Pressure 102/44 L Blood Pressure [Ri ght Upper Arm] Pulse Oximetry 98 97 97 Oxygen Delivery Me thod 01/08/25 19:15 01/08/25 19:36 Temperature Pulse Rate 64 71 Pulse Rate [Pulse Oximeter] Respiratory Rate 23 20 Blood Pressure Blood Pressure [Ri ght Upper Arm] Pulse Oximetry 99 96 Oxygen Delivery Me thod Hospitalist - H&P: Result Labs Labs: Short CBC 01/08/25 Range/Units 18:12 WBC 8.66 (4.50-11.00) K/uL Hgb 5.4 L* (13.5-17.5) gm/dL Hct 19.5 L (37.0-53.0) % Plt Count 331 (140-440) K/uL BMP 01/08/25 18:12 Sodium 135 Potassium 4.2 Chloride 101 Carbon Dioxide 23 BUN 29 Creatinine 2.1 H Glucose 133 H Calcium 8.9 Liver Function 01/08/25 Range/Units 18:12 Total Bilirubin 0.5 (0.1-1.5) mg/dL Direct Bilirubin 0.4 (0.0-0.5) mg/dL AST 27 (12-35) U/L ALT 27 (4-50) U/L Alkaline Phosphatase 82 (40-150) U/L Albumin 3.9 (3.3-5.0) g/dL
[2025-01-08 21:47] LABS: Immature Reticulocyte Fraction 11.8 % (2.3-13.4); Reticulocyte Hemoglobin Equivi 13.0 pg (29.0-35.0); Reticulocytes Absolute 0.04 # (0.03-0.08)
[2025-01-08 21:48] LABS: Iron* 25 ug/dL (49-181)
[2025-01-08 21:57] LABS: Percent Iron Saturation 5 % (20-50); Total Iron Binding Capacity 499 ug/dL (261-462)
[2025-01-09] VITALS (17 sets, daily range): BP systolic 108–135; BP diastolic 48–78; PULSE 52–64; RESP 16–20; TEMP 36.2–36.7; O2SAT 95–100
[2025-01-09] MEDS: PANTOPRAZOLE SODIUM 40 MG INJ 80 MG IVP (00:01)
[2025-01-09] MEDS: FUROSEMIDE 10 MG/ML inj 20 MG IVP (03:35)
[2025-01-09 04:03] LABS: Hemoglobin* 7.3 gm/dL (13.5-17.5)
[2025-01-09 06:29] LABS: Hematocrit* 25.6 % (37.0-53.0); Immature Granulocytes Abs Auto 0.06 K/uL (0.00-0.30); Immature Granulocytes Pct Auto 0.7 %; Mean Corpuscular HGB Conc 30 gm/dL (32-36); Mean Corpuscular Hemoglobin 23 pg (26-34); Mean Corpuscular Volume 76 fL (80-100); RDW Coefficient of Variation % 21.1 % (11.5-15.5); Red Blood Count* 3.36 m/uL (4.30-5.90); White Blood Count* 8.64 K/uL (4.50-11.00)
[2025-01-09 06:44] LABS: Hemoglobin* 7.6 gm/dL (13.5-17.5); Lymphocytes Absolute Auto 1.60 K/uL (0.90-2.90); Slide Review Reflex No
[2025-01-09 06:45] LABS: Chloride* 104 mmol/L (96-114); Potassium* 3.9 mmol/L (3.6-5.1); Sodium* 137 mmol/L (135-149)
--- NOTE | 2025-01-09 06:45 | PC.NURSE ---
End of shift report: Pt was admitted to the floor at 2103. AxOx4. Denies dizziness and nausea. When the patient arrived he complained of a dull temporal headache. Pt stated that the headache was resolved after the 1st unit of blood was transfused. Pt reported that ?he feels a lot better?after the blood transfusions.? Pt is on NPO diet. Ambulates ind in room. Pt slept in the chair overnight, call light within reach.?
[2025-01-09 06:48] LABS: Anion Gap 8 mEq/L (7-15); Blood Urea Nitrogen* 25 mg/dL (7-30); Calcium* 9.1 mg/dL (8.4-10.6); Carbon Dioxide* 25 mmol/L (20-32); Creatinine* 1.9 mg/dL (0.5-1.5); Est. Creatinine Clearance* 43.93; Estimated Glomerular Filt Rate 41 ml/min; Glucose* 104 mg/dL (60-115)
[2025-01-09] MEDS: ATORVASTATIN CALCIUM 40 MG TABLET PO (09:27)
[2025-01-09] MEDS: DULOXETINE 30 MG CAPSULE DR PO (09:27)
[2025-01-09] MEDS: OMEPRAZOLE 20 MG CAPSULE DR 40 MG PO ×2 (09:27)
[2025-01-09] MEDS: METOPROLOL SUCCINATE (XL) 100 MG TAB 200 MG PO (09:27)
[2025-01-09] MEDS: SPIRONOLACTONE 25 MG TABLET 100 MG PO (09:27)
[2025-01-09] MEDS: DULOXETINE 30 MG CAPSULE DR 60 MG PO (09:32)
[2025-01-09] MEDS: TORSEMIDE 20 MG TABLET PO (09:32)
[2025-01-09] MEDS: SODIUM CHLORIDE 0.9 % (FLUSH) 10 ML SYRINGE 5 ML IVF (09:33)
--- NOTE | 2025-01-09 10:03 | P.IMPN_ITS ---
Assessment and Plan Assessment and plan (1) Microcytic anemia: Problem comment: - Hgb of 5.4 on 01/08, presumed UGIB given history of this - 2U of PRBCs ordered upon admission, will follow Hgb after transfusion - HOLD Plavix (had stopped ASA in 11/2024), + PPI - EGD 01/09 pending 01/09: transfused another unit with hemoglobin of 7.6 and goal to be >8 for his heart disease, ordered H Pylori stool antigen, fluid bolus - AMY improving. iron deficient. Status: Acute (2) Iron deficiency anemia due to chronic blood loss: Problem comment: iron 25 TIBC 499 % sat 5 ferritin 4.6 retic hgb equiv 13.0 Status: Acute (3) ASCVD (arteriosclerotic cardiovascular disease): Problem comment: - Inferior wall STEMI in 2019, s/p proximal RCA ALONDRA 06/2019 - continue statin, spironolactone - SPECT MPS 05/14/24 with basal and mid inferior wall infarction pattern without ischemia Status: Acute (4) CHF (congestive heart failure): Problem comment: - HFpEF (Normal biventricular systolic function, LVEF 60-65% on echo 02/05/22, LVEF 65% on SPECT MPS 05/14/24) - appears mildly fluid up, will give IV Lasix after transfusion, follow daily weights, Is/Os 01/09 - now euvolemic. HFpEF not in excerbation. Echo spring 2024 Final Impressions: 1. Normal left ventricular size, normal wall thickness, normal global and regional systolic function, calculated EF of 63 %. 2. Normal diastolic function. 3. Right ventricular cavity size is normal, global systolic RV function is normal. 4. The aortic valve is trileaflet, no stenosis and mild regurgitation. 5. The inferior vena cava is normal sized, respiratory size variation greater than 50%. Status: Acute (5) PAD (peripheral artery disease): Problem comment: - with claudication, follows with Dr. Ocampo at [facility] (was on ASA and Plavix - now both on hold given anemia) - s/p bilateral SFA DCBs and bilateral SFA stents 06/2024 Status: Acute (6) CKD (chronic kidney disease) stage 3, GFR 30-59 ml/min: Problem comment: - decrease in GFR first noted 04/2024, baseline creatinine 2.0-2.2 Status: Acute (7) Lumbar radiculopathy: Problem comment: - scheduled for decompression at L3-L4 with Dr. Lopez 02/18/2025 Status: Acute Subjective Date Seen: 01/09/25 Interval history: Daily Progress Note - Hospital Medicine #: 1 CC: Anemia, heart disease 24 HOUR UPDATE: Feels a bit better after two units of blood. No chest pain; RIVERA, just general fatigue. No abdominal pain EGD for 11 am today hbg post transfusion is 7. No hx of HPylori infection BM yesterday neg for occult blood AYM is improved iron deficient trop neg yesterday of note patient has a lumbar decompression - Lateral recess Levels: L3 to: L4 Lisset Lopez MD 02/18/2025 @ [facility] 06/2024 Final Impressions: 1. Normal left ventricular size, normal wall thickness, normal global and regional systolic function, calculated EF of 63 %. 2. Normal diastolic function. 3. Right ventricular cavity size is normal, global systolic RV function is normal. 4. The aortic valve is trileaflet, no stenosis and mild regurgitation. 5. The inferior vena cava is normal sized, respiratory size variation greater than 50%. Comparison Compared to prior exam report of 02/05/22: - Aortic regurgitation has decreased. Objective: alert; conversational. Vitals: see above Lungs: Clear. Cardiac: S1S2. abdomen: obest, midly distended. Disposition/Potential discharge - likely home this evening after EGD (pending results) and transfusion. Today I spent 50minutes seeing the patient, reviewing Expanse and EPIC notes/diagnostics, discussing the care plan with our care time that includes social work, PT/OT, pharmacy, RT, [place] [facility] and documenting my impressions and plan in the medical record. Exam Const: Vital Signs, click to edit/add: Vital Signs - 24 hr 01/08/25 18:00 01/08/25 18:18 01/08/25 18:19 Temperature 96.7 F L Pulse Rate 63 63 Pulse Rate [Pulse Oximeter] 73 Respiratory Rate 20 20 18 Blood Pressure 106/56 L Blood Pressure [Le ft Arm] Blood Pressure [Ri ght Upper Arm] 103/63 Pulse Oximetry 100 97 100 Oxygen Delivery Me thod Room Air 01/08/25 18:30 01/08/25 18:30 01/08/25 18:32 Temperature Pulse Rate 62 64 Pulse Rate [Pulse Oximeter] Respiratory Rate 18 18 Blood Pressure 104/53 L Blood Pressure [Le ft Arm] Blood Pressure [Ri ght Upper Arm] Pulse Oximetry 97 98 97 Oxygen Delivery Me thod 01/08/25 18:45 01/08/25 19:00 01/08/25 19:05 Temperature Pulse Rate 63 60 61 Pulse Rate [Pulse Oximeter] Respiratory Rate 21 24 Blood Pressure 102/44 L Blood Pressure [Le ft Arm] Blood Pressure [Ri ght Upper Arm] Pulse Oximetry 98 97 97 Oxygen Delivery Me thod 01/08/25 19:15 01/08/25 19:36 01/08/25 19:45 Temperature Pulse Rate 64 71 73 Pulse Rate [Pulse Oximeter] Respiratory Rate 23 20 18 Blood Pressure Blood Pressure [Le ft Arm] Blood Pressure [Ri ght Upper Arm] Pulse Oximetry 99 96 96 Oxygen Delivery Me thod 01/08/25 20:00 01/08/25 20:02 01/08/25 20:15 Temperature Pulse Rate 71 70 68 Pulse Rate [Pulse Oximeter] Respiratory Rate 21 24 21 Blood Pressure 109/50 L Blood Pressure [Le ft Arm] Blood Pressure [Ri ght Upper Arm] Pulse Oximetry 98 97 98 Oxygen Delivery Me thod 01/08/25 20:30 01/08/25 20:32 01/08/25 20:45 Temperature Pulse Rate 66 65 Pulse Rate [Pulse Oximeter] Respiratory Rate 23 16 Blood Pressure 112/69 Blood Pressure [Le ft Arm] Blood Pressure [Ri ght Upper Arm] Pulse Oximetry 100 100 Oxygen Delivery Me thod 01/08/25 21:03 01/08/25 21:03 01/08/25 21:27 Temperature 98.3 F 98.3 F Pulse Rate 69 Pulse Rate [Pulse Oximeter] 69 Respiratory Rate 18 20 18 Blood Pressure 107/57 L Blood Pressure [Le ft Arm] 107/57 L Blood Pressure [Ri ght Upper Arm] Pulse Oximetry 98 98 Oxygen Delivery Me thod Room Air Room Air 01/08/25 21:45 01/08/25 22:15 01/08/25 22:45 Temperature 98.2 F 97.8 F 97.9 F Pulse Rate 65 65 60 Pulse Rate [Pulse Oximeter] Respiratory Rate 16 18 18 Blood Pressure 116/60 125/65 118/56 L Blood Pressure [Le ft Arm] Blood Pressure [Ri ght Upper Arm] Pulse Oximetry 97 96 99 Oxygen Delivery Me thod Room Air Room Air Room Air 01/08/25 23:00 01/08/25 23:00 01/08/25 23:00 Temperature 97.6 F Pulse Rate 61 Pulse Rate [Pulse Oximeter] 60 Respiratory Rate 18 18 Blood Pressure Blood Pressure [Le ft Arm] 108/65 Blood Pressure [Ri ght Upper Arm] Pulse Oximetry 99 99 Oxygen Delivery Me thod Room Air Room Air 01/08/25 23:15 01/08/25 23:45 01/09/25 00:09 Temperature 97.6 F 97.6 F 97.9 F Pulse Rate 62 64 64 Pulse Rate [Pulse Oximeter] Respiratory Rate 18 18 18 Blood Pressure 111/83 112/56 L 135/67 Blood Pressure [Le ft Arm] Blood Pressure [Ri ght Upper Arm] Pulse Oximetry 96 94 96 Oxygen Delivery Me thod Room Air Room Air Room Air 01/09/25 00:51 01/09/25 01:00 01/09/25 01:05 Temperature 97.7 F 97.5 F L 97.5 F L Pulse Rate 62 59 L 59 L Pulse Rate [Pulse Oximeter] Respiratory Rate 20 20 20 Blood Pressure 133/65 112/56 L 112/56 L Blood Pressure [Le ft Arm] Blood Pressure [Ri ght Upper Arm] Pulse Oximetry 96 95 95 Oxygen Delivery Me thod Room Air Room Air Room Air 01/09/25 01:30 01/09/25 01:30 01/09/25 02:00 Temperature 97.6 F 98 F 97.2 F L Pulse Rate 60 58 L 57 L Pulse Rate [Pulse Oximeter] Respiratory Rate 18 16 18 Blood Pressure 108/65 121/62 119/66 Blood Pressure [Le ft Arm] Blood Pressure [Ri ght Upper Arm] Pulse Oximetry 99 99 97 Oxygen Delivery Me thod Room Air Room Air Room Air 01/09/25 02:30 01/09/25 02:39 01/09/25 03:00 Temperature 98 F 98 F 98.1 F Pulse Rate 58 L 56 L Pulse Rate [Pulse Oximeter] 58 L Respiratory Rate 16 16 16 Blood Pressure 121/62 109/48 L Blood Pressure [Le ft Arm] 121/62 Blood Pressure [Ri ght Upper Arm] Pulse Oximetry 98 99 99 Oxygen Delivery Me thod Room Air Room Air Room Air 01/09/25 03:20 01/09/25 04:20 01/09/25 07:00 Temperature 98.1 F 98.1 F Pulse Rate 57 L 56 L Pulse Rate [Pulse Oximeter] 52 L Respiratory Rate 16 18 18 Blood Pressure 122/78 109/57 L Blood Pressure [Le ft Arm] Blood Pressure [Ri ght Upper Arm] Pulse Oximetry 97 98 Oxygen Delivery Me thod Room Air Room Air 01/09/25 07:00 01/09/25 07:00 Temperature 98.0 F Pulse Rate Pulse Rate [Pulse Oximeter] 52 L Respiratory Rate 18 18 Blood Pressure Blood Pressure [Le ft Arm] 122/63 Blood Pressure [Ri ght Upper Arm] Pulse Oximetry 100 100 Oxygen Delivery Me thod Room Air Room Air Labs Labs: Laboratory Results - last 24 hr 01/08/25 01/08/25 01/08/25 18:12 18:29 19:14 WBC 8.66 RBC 2.72 L Hgb 5.4 L* Hct 19.5 L MCV 72 L MCH 20 L MCHC 28 L RDW Coeff of Linus 17.4 H Plt Count 331 Neut % (Auto) 68.1 Lymph % (Auto) 19.5 L [place] % (Auto) 6.9 Eos % (Auto) 3.8 Baso % (Auto) 0.7 Neut # (Auto) 5.89 Lymph # (Auto) 1.70 [place] # (Auto) 0.60 Eos # (Auto) 0.33 Baso # (Auto) 0.06 Abs Immat Gran (auto) 0.09 Imm/Tot Granulo (auto) 1.0 Diff Slide Review Absolute Retic 0.04 Percent Retic 1.6 Immature Retic Fraction 11.8 Retic Hgb Equivalent 13.0 L INR 1.03 APTT 30 Sodium 135 Potassium 4.2 Chloride 101 Carbon Dioxide 23 Anion Gap 11 BUN 29 Creatinine 2.1 H Estimated Creat Clear 39.75 Estimated GFR 36 Glucose 133 H Calcium 8.9 Magnesium 1.9 Iron 25 L TIBC 499 H % Saturation 5 L Ferritin 4.6 L Total Bilirubin 0.5 Direct Bilirubin 0.4 AST 27 ALT 27 Alkaline Phosphatase 82 Total Protein 6.6 Albumin 3.9 Stool Occult Blood Negative Lab Acknowledgement POC Troponin I 0.01 Blood Type A Positive Antibody Screen NEGATIVE Crossmatch (AHG) See Detail 01/08/25 01/08/25 01/09/25 19:29 21:12 03:50 WBC RBC Hgb 7.3 L* Hct MCV MCH MCHC RDW Coeff of Linus Plt Count Neut % (Auto) Lymph % (Auto) [place] % (Auto) Eos % (Auto) Baso % (Auto) Neut # (Auto) Lymph # (Auto) [place] # (Auto) Eos # (Auto) Baso # (Auto) Abs Immat Gran (auto) Imm/Tot Granulo (auto) Diff Slide Review Absolute Retic Percent Retic Immature Retic Fraction Retic Hgb Equivalent INR APTT Sodium Potassium Chloride Carbon Dioxide Anion Gap BUN Creatinine Estimated Creat Clear Estimated GFR Glucose Calcium Magnesium Iron TIBC % Saturation Ferritin Total Bilirubin Direct Bilirubin AST ALT Alkaline Phosphatase Total Protein Albumin Stool Occult Blood Lab Acknowledgement Test Added Test Added POC Troponin I Blood Type Antibody Screen Crossmatch ([facility]) 01/09/25 06:19 WBC 8.64 RBC 3.36 L Hgb 7.6 L* Hct 25.6 L MCV 76 L MCH 23 L MCHC 30 L RDW Coeff of Linus 21.1 H Plt Count 300 Neut % (Auto) 66.8 Lymph % (Auto) 18.4 L [place] % (Auto) 9.7 Eos % (Auto) 3.9 Baso % (Auto) 0.5 Neut # (Auto) 5.77 Lymph # (Auto) 1.60 [place] # (Auto) 0.80 Eos # (Auto) 0.34 Baso # (Auto) 0.04 Abs Immat Gran (auto) 0.06 Imm/Tot Granulo (auto) 0.7 Diff Slide Review Absolute Retic Percent Retic Immature Retic Fraction Retic Hgb Equivalent INR APTT Sodium 137 Potassium 3.9 Chloride 104 Carbon Dioxide 25 Anion Gap 8 BUN 25 Creatinine 1.9 H Estimated Creat Clear 43.93 Estimated GFR 41 Glucose 104 Calcium 9.1 Magnesium Iron TIBC % Saturation Ferritin Total Bilirubin Direct Bilirubin AST ALT Alkaline Phosphatase Total Protein Albumin Stool Occult Blood Lab Acknowledgement POC Troponin I Blood Type Antibody Screen Crossmatch ([facility])
[2025-01-09] MEDS: 0.9 % SODIUM CHLORIDE 500 ML 500 ML IV (10:33)
--- NOTE | 2025-01-09 14:21 | P.ANES_ITS ---
Anesthesia Charges Start Date/Time Anesthesia Start Date: 01/09/25 Anesthesia Start Time: 13:59 Stop Date/Time Anesthesia Stop Date: 01/09/25 Anesthesia Stop Time: 14:13 Coding CPT Codes CPT Codes: ANES UPR GI NDSC PX NOS - 01097 ([id number]) P3 - PATIENT W/SEVERE SYS DISEASE, QZ - DIGITIZER OPERATOR SVC W/O BUILDING CODE ADMINISTRATOR BY
--- NOTE | 2025-01-09 14:21 | W.ANESCHARGE ---
Anesthesia Charges Start Date/Time Anesthesia Start Date: 01/09/25 Anesthesia Start Time: 13:59 Stop Date/Time Anesthesia Stop Date: 01/09/25 Anesthesia Stop Time: 14:13 Coding CPT Codes CPT Codes: ANES UPR GI NDSC PX NOS - 40165 ([id number]) P3 - PATIENT W/SEVERE SYS DISEASE, QZ - TREAD BOOKER SVC W/O PRIVATE BRANCH EXCHANGE SERVICE ADVISER BY
--- NOTE | 2025-01-09 15:50 | PC.NURSE ---
End of infusion. Patient tolerated PRBC well. Could not document 30 min vitals, patient was off unit for EGD see EGD documentation on vitals. Patient was up to floor at 1515. infusion ended at 1520. END OF SHIFT: VSS, RA. Patient denied N/V/SOB or pain. ambulating well in .
--- NOTE | 2025-01-09 16:08 | PM.DS1 ---
DS: Providers Provider Date Seen: 01/09/25 Date of admission: 01/09/25 09:21 Primary care physician: Poli Street MD Admitting Clinician: Jessenia Richard MD Attending Physician on discharge: Dar Lopez MD Date of Discharge: 01/09/25 DS: Diagnosis Discharge Diagnosis (1) Microcytic anemia: Status: Acute Problem details: - Hgb of 5.4 on 01/08, presumed UGIB given history of this - 2U of PRBCs ordered upon admission, will follow Hgb after transfusion - HOLD Plavix (had stopped ASA in 11/2024), + PPI - EGD 01/09/2025 demonstrated normal UGI mucosa with no stigmata of active or recent UGI bleed. Dr. Myriam Viveros, endoscopist/general surgeon, recommended resuming clopidogrel. Recommend patient have follow-up with PCP to consider when to restart the aspirin which has been on hold since 01/08/2025. 01/09: transfused another unit with hemoglobin of 7.6 and goal to be >8 for his heart disease, ordered H Pylori stool antigen, fluid bolus - AMY improving. iron deficient. (2) Iron deficiency anemia due to chronic blood loss: Status: Acute Problem details: iron 25 TIBC 499 % sat 5 ferritin 4.6 retic hgb equiv 13.0 (3) ASCVD (arteriosclerotic cardiovascular disease): Status: Acute Problem details: - Inferior wall STEMI in 2019, s/p proximal RCA ALONDRA 06/2019 - continue statin, spironolactone - SPECT MPS 05/14/24 with basal and mid inferior wall infarction pattern without ischemia (4) CHF (congestive heart failure): Status: Acute Problem details: - HFpEF (Normal biventricular systolic function, LVEF 60-65% on echo 02/05/22, LVEF 65% on SPECT MPS 05/14/24) - appears mildly fluid up, will give IV Lasix after transfusion, follow daily weights, Is/Os 01/09 - now euvolemic. HFpEF not in excerbation. Echo spring 2024 Final Impressions: 1. Normal left ventricular size, normal wall thickness, normal global and regional systolic function, calculated EF of 63 %. 2. Normal diastolic function. 3. Right ventricular cavity size is normal, global systolic RV function is normal. 4. The aortic valve is trileaflet, no stenosis and mild regurgitation. 5. The inferior vena cava is normal sized, respiratory size variation greater than 50%. (5) PAD (peripheral artery disease): Status: Acute Problem details: - with claudication, follows with Dr. Ocampo at [facility] (was on ASA and Plavix - now both on hold given anemia) - s/p bilateral SFA DCBs and bilateral SFA stents 06/2024 (6) CKD (chronic kidney disease) stage 3, GFR 30-59 ml/min: Status: Acute Problem details: - decrease in GFR first noted 04/2024, baseline creatinine 2.0-2.2 (7) Lumbar radiculopathy: Status: Acute Problem details: - scheduled for decompression at L3-L4 with Dr. Lopez 02/18/2025 DS: Summary Hospital Course Hospital Course: Admission history vof present illness: 54 year old male who presented to the emergency room this afternoon at the behest of his PCP for acutely worsened anemia. Noted to have a hemoglobin of 8.0 in November (previously 12-16); at that time his aspirin was discontinued. Today, he was seen by his PCP again and hemoglobin noted to be 5.7 with an MCV of 72 and ferritin of 4.7; called back to ER for evaluation. Has felt more tired than usual recently. No stool changes, no diet changes. Vomited once over the weekend (thinks this was 2/2 taking too much Gabapentin), no hematemesis. ER Course and Findings: - Hgb 5.2, normal WBC, normal platelets - normal electrolytes, Creatinine 2.1 (baseline), no proteinuria or other abnormalities on UA - BP on the low side for patient (102/49), P 70s - negative stool occult blood - no acute findings on A/P CT Admitted to the hospital for workup of anemia + transfusion. 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 Last Colonoscopy 2022; had 2 polyps removed (one advanced tubular adenoma measuring 10mm) + diverticulosis. No active bleeding discerned throughout his entire hospital stay. Aspirin and clopidogrel on hold since arrival. EGD undertaken on the afternoon of 01/09/2025 with normal findings, no abnormalities, normal upper gastrointestinal mucosa, no stigmata of recent bleeding or active bleeding. Endoscopist recommends resuming clopidogrel in following up with primary care physician for additional considerations. Status at Discharge Functional status at discharge: independent ambulation Overall status at discharge: patient is back to baseline Time Spent with Patient Time attestation: Total time spent providing and/or coordinating discharge services: 40 minutes Time spent: Greater than 30 minutes Exam Narrative: Exam Narrative: I examined patient in his hospital room. Awake, alert, oriented x4. Friendly, articulate, cooperative. Lungs are clear to auscultation. Heart tones with regular rhythm. Abdomen benign. Extremities without edema. Moves all 4 extremities. No focal motor neurologic deficits. Independent with transfers, station, gait. Const: Vital Signs, click to edit/add: Vital Signs - 24 hr 01/08/25 18:00 01/08/25 18:18 01/08/25 18:19 Temperature 96.7 F L Pulse Rate 63 63 Pulse Rate [Pulse Oximeter] 73 Respiratory Rate 20 20 18 Blood Pressure 106/56 L Blood Pressure [Le ft Arm] Blood Pressure [Ri ght Upper Arm] 103/63 Pulse Oximetry 100 97 100 Oxygen Delivery Me thod Room Air 01/08/25 18:30 01/08/25 18:30 01/08/25 18:32 Temperature Pulse Rate 62 64 Pulse Rate [Pulse Oximeter] Respiratory Rate 18 18 Blood Pressure 104/53 L Blood Pressure [Le ft Arm] Blood Pressure [Ri ght Upper Arm] Pulse Oximetry 97 98 97 Oxygen Delivery Me thod 01/08/25 18:45 01/08/25 19:00 01/08/25 19:05 Temperature Pulse Rate 63 60 61 Pulse Rate [Pulse Oximeter] Respiratory Rate 21 24 Blood Pressure 102/44 L Blood Pressure [Le ft Arm] Blood Pressure [Ri ght Upper Arm] Pulse Oximetry 98 97 97 Oxygen Delivery Me thod 01/08/25 19:15 01/08/25 19:36 01/08/25 19:45 Temperature Pulse Rate 64 71 73 Pulse Rate [Pulse Oximeter] Respiratory Rate 23 20 18 Blood Pressure Blood Pressure [Le ft Arm] Blood Pressure [Ri ght Upper Arm] Pulse Oximetry 99 96 96 Oxygen Delivery Me thod 01/08/25 20:00 01/08/25 20:02 01/08/25 20:15 Temperature Pulse Rate 71 70 68 Pulse Rate [Pulse Oximeter] Respiratory Rate 21 24 21 Blood Pressure 109/50 L Blood Pressure [Le ft Arm] Blood Pressure [Ri ght Upper Arm] Pulse Oximetry 98 97 98 Oxygen Delivery Me thod 01/08/25 20:30 01/08/25 20:32 01/08/25 20:45 Temperature Pulse Rate 66 65 Pulse Rate [Pulse Oximeter] Respiratory Rate 23 16 Blood Pressure 112/69 Blood Pressure [Le ft Arm] Blood Pressure [Ri ght Upper Arm] Pulse Oximetry 100 100 Oxygen Delivery Me thod 01/08/25 21:03 01/08/25 21:03 01/08/25 21:27 Temperature 98.3 F 98.3 F Pulse Rate 69 Pulse Rate [Pulse Oximeter] 69 Respiratory Rate 18 20 18 Blood Pressure 107/57 L Blood Pressure [Le ft Arm] 107/57 L Blood Pressure [Ri ght Upper Arm] Pulse Oximetry 98 98 Oxygen Delivery Me thod Room Air Room Air 01/08/25 21:45 01/08/25 22:15 01/08/25 22:45 Temperature 98.2 F 97.8 F 97.9 F Pulse Rate 65 65 60 Pulse Rate [Pulse Oximeter] Respiratory Rate 16 18 18 Blood Pressure 116/60 125/65 118/56 L Blood Pressure [Le ft Arm] Blood Pressure [Ri ght Upper Arm] Pulse Oximetry 97 96 99 Oxygen Delivery Me thod Room Air Room Air Room Air 01/08/25 23:00 01/08/25 23:00 01/08/25 23:00 Temperature 97.6 F Pulse Rate 61 Pulse Rate [Pulse Oximeter] 60 Respiratory Rate 18 18 Blood Pressure Blood Pressure [Le ft Arm] 108/65 Blood Pressure [Ri ght Upper Arm] Pulse Oximetry 99 99 Oxygen Delivery Me thod Room Air Room Air 01/08/25 23:15 01/08/25 23:45 01/09/25 00:09 Temperature 97.6 F 97.6 F 97.9 F Pulse Rate 62 64 64 Pulse Rate [Pulse Oximeter] Respiratory Rate 18 18 18 Blood Pressure 111/83 112/56 L 135/67 Blood Pressure [Le ft Arm] Blood Pressure [Ri ght Upper Arm] Pulse Oximetry 96 94 96 Oxygen Delivery Me thod Room Air Room Air Room Air 01/09/25 00:51 01/09/25 01:00 01/09/25 01:05 Temperature 97.7 F 97.5 F L 97.5 F L Pulse Rate 62 59 L 59 L Pulse Rate [Pulse Oximeter] Respiratory Rate 20 20 20 Blood Pressure 133/65 112/56 L 112/56 L Blood Pressure [Le ft Arm] Blood Pressure [Ri ght Upper Arm] Pulse Oximetry 96 95 95 Oxygen Delivery Me thod Room Air Room Air Room Air 01/09/25 01:30 01/09/25 01:30 01/09/25 02:00 Temperature 97.6 F 98 F 97.2 F L Pulse Rate 60 58 L 57 L Pulse Rate [Pulse Oximeter] Respiratory Rate 18 16 18 Blood Pressure 108/65 121/62 119/66 Blood Pressure [Le ft Arm] Blood Pressure [Ri ght Upper Arm] Pulse Oximetry 99 99 97 Oxygen Delivery Me thod Room Air Room Air Room Air 01/09/25 02:30 01/09/25 02:39 01/09/25 03:00 Temperature 98 F 98 F 98.1 F Pulse Rate 58 L 56 L Pulse Rate [Pulse Oximeter] 58 L Respiratory Rate 16 16 16 Blood Pressure 121/62 109/48 L Blood Pressure [Le ft Arm] 121/62 Blood Pressure [Ri ght Upper Arm] Pulse Oximetry 98 99 99 Oxygen Delivery Me thod Room Air Room Air Room Air 01/09/25 03:20 01/09/25 04:20 01/09/25 07:00 Temperature 98.1 F 98.1 F Pulse Rate 57 L 56 L Pulse Rate [Pulse Oximeter] 52 L Respiratory Rate 16 18 18 Blood Pressure 122/78 109/57 L Blood Pressure [Le ft Arm] Blood Pressure [Ri ght Upper Arm] Pulse Oximetry 97 98 Oxygen Delivery Me thod Room Air Room Air 01/09/25 07:00 01/09/25 07:00 01/09/25 07:00 Temperature 98.0 F Pulse Rate 56 L Pulse Rate [Pulse Oximeter] 52 L Respiratory Rate 18 18 Blood Pressure Blood Pressure [Le ft Arm] 122/63 Blood Pressure [Ri ght Upper Arm] Pulse Oximetry 100 100 Oxygen Delivery Me thod Room Air Room Air 01/09/25 11:00 01/09/25 12:11 01/09/25 12:30 Temperature 97.6 F 97.6 F 97.6 F Pulse Rate 53 L 54 L Pulse Rate [Pulse Oximeter] 53 L Respiratory Rate 16 16 16 Blood Pressure 113/60 113/71 Blood Pressure [Le ft Arm] 113/60 Blood Pressure [Ri ght Upper Arm] Pulse Oximetry 98 98 100 Oxygen Delivery Me thod Room Air Room Air Room Air 01/09/25 13:00 Temperature 98.0 F Pulse Rate 55 L Pulse Rate [Pulse Oximeter] Respiratory Rate 16 Blood Pressure 113/65 Blood Pressure [Le ft Arm] Blood Pressure [Ri ght Upper Arm] Pulse Oximetry 100 Oxygen Delivery Me thod Room Air DS: Data Data Completed and Pending Labs on day of discharge: Labs from last 24 hours 01/09/25 01/09/25 01/08/25 06:19 03:50 21:12 WBC 8.64 RBC 3.36 L Hgb 7.6 L* 7.3 L* Hct 25.6 L MCV 76 L MCH 23 L MCHC 30 L RDW Coeff of Linus 21.1 H Plt Count 300 Neut % (Auto) 66.8 Lymph % (Auto) 18.4 L Warren % (Auto) 9.7 Eos % (Auto) 3.9 Baso % (Auto) 0.5 Neut # (Auto) 5.77 Lymph # (Auto) 1.60 Warren # (Auto) 0.80 Eos # (Auto) 0.34 Baso # (Auto) 0.04 Abs Immat Gran (auto) 0.06 Imm/Tot Granulo (auto) 0.7 Diff Slide Review Absolute Retic Percent Retic Immature Retic Fraction Retic Hgb Equivalent INR APTT Sodium 137 Potassium 3.9 Chloride 104 Carbon Dioxide 25 Anion Gap 8 BUN 25 Creatinine 1.9 H Estimated Creat Clear 43.93 Estimated GFR 41 Glucose 104 Calcium 9.1 Magnesium Iron TIBC % Saturation Ferritin Total Bilirubin Direct Bilirubin AST ALT Alkaline Phosphatase Total Protein Albumin Stool Occult Blood Lab Acknowledgement Test Added POC Troponin I Blood Type Antibody Screen Crossmatch ([facility]) 01/08/25 01/08/25 01/08/25 19:29 19:14 18:29 WBC RBC Hgb Hct MCV MCH MCHC RDW Coeff of Linus Plt Count Neut % (Auto) Lymph % (Auto) Warren % (Auto) Eos % (Auto) Baso % (Auto) Neut # (Auto) Lymph # (Auto) Warren # (Auto) Eos # (Auto) Baso # (Auto) Abs Immat Gran (auto) Imm/Tot Granulo (auto) Diff Slide Review Absolute Retic Percent Retic Immature Retic Fraction Retic Hgb Equivalent INR APTT Sodium Potassium Chloride Carbon Dioxide Anion Gap BUN Creatinine Estimated Creat Clear Estimated GFR Glucose Calcium Magnesium Iron TIBC % Saturation Ferritin Total Bilirubin Direct Bilirubin AST ALT Alkaline Phosphatase Total Protein Albumin Stool Occult Blood Negative Lab Acknowledgement Test Added POC Troponin I 0.01 Blood Type Antibody Screen Crossmatch ([facility]) 01/08/25 18:12 WBC 8.66 RBC 2.72 L Hgb 5.4 L* Hct 19.5 L MCV 72 L MCH 20 L MCHC 28 L RDW Coeff of Linus 17.4 H Plt Count 331 Neut % (Auto) 68.1 Lymph % (Auto) 19.5 L Warren % (Auto) 6.9 Eos % (Auto) 3.8 Baso % (Auto) 0.7 Neut # (Auto) 5.89 Lymph # (Auto) 1.70 Warren # (Auto) 0.60 Eos # (Auto) 0.33 Baso # (Auto) 0.06 Abs Immat Gran (auto) 0.09 Imm/Tot Granulo (auto) 1.0 Diff Slide Review Absolute Retic 0.04 Percent Retic 1.6 Immature Retic Fraction 11.8 Retic Hgb Equivalent 13.0 L INR 1.03 APTT 30 Sodium 135 Potassium 4.2 Chloride 101 Carbon Dioxide 23 Anion Gap 11 BUN 29 Creatinine 2.1 H Estimated Creat Clear 39.75 Estimated GFR 36 Glucose 133 H Calcium 8.9 Magnesium 1.9 Iron 25 L TIBC 499 H % Saturation 5 L Ferritin 4.6 L Total Bilirubin 0.5 Direct Bilirubin 0.4 AST 27 ALT 27 Alkaline Phosphatase 82 Total Protein 6.6 Albumin 3.9 Stool Occult Blood Lab Acknowledgement POC Troponin I Blood Type A Positive Antibody Screen NEGATIVE Crossmatch ([facility]) See Detail Discharge Plan Discharge Disposition: Home, Self-Care Date of Admission: 01/09/25 09:21 Attending Provider on Discharge: Nadine Lemon Primary Care Provider: Poli Street Condition: Stable Anticipated Discharge Date/Time: 01/09/25 17:00 Discharge Medications: Continued fluticasone propion-salmeterol [Advair Diskus] 250-50 mcg/dose blister with device 1 inh inhalation BID Qty: 60 5RF albuterol sulfate 90 mcg/actuation HFA aerosol inhaler 2 puff inhalation Q6H PRN (Reason: shortness of breath or wheezing) Qty: 8.5 5RF atorvastatin 40 mg tablet 40 mg PO DAILY torsemide 20 mg tablet 20 mg PO BID nitroglycerin 0.4 mg tablet, sublingual 0.4 mg sublingual .As Needed as needed PRN aripiprazole 30 mg tablet 30 mg PO DAILY Qty: 90 3RF bupropion HCl 300 mg tablet extended release 24 hr 300 mg PO DAILY Qty: 90 3RF clopidogrel 75 mg tablet 75 mg PO DAILY Qty: 90 3RF duloxetine 60 mg capsule,delayed release(DR/EC) 60 mg PO QAM Qty: 90 3RF Rx Instructions: Takes 90mg in the morning duloxetine 30 mg capsule,delayed release(DR/EC) 30 mg PO QAM Qty: 90 3RF Rx Instructions: total dose 90 mg spironolactone 100 mg tablet 100 mg PO DAILY Qty: 90 3RF metoprolol succinate 200 mg tablet extended release 24 hr 200 mg PO DAILY Qty: 90 3RF zolpidem 10 mg tablet 10 mg PO HS PRN (Reason: insomnia) Qty: 30 2RF losartan 50 mg tablet 50 mg PO DAILY ferrous sulfate 325 mg (65 mg iron) tablet 325 mg PO BID Qty: 60 5RF tamsulosin 0.4 mg capsule 0.4 mg PO DAILY Qty: 90 3RF gabapentin 300 mg capsule 300 mg PO TID Qty: 270 2RF Rx Instructions: Increase by one pill/day weekly to a target dose of 900 mg TID pantoprazole [Protonix] 40 mg tablet,delayed release (DR/EC) 40 mg PO QDAY Qty: 90 1RF potassium chloride 10 mEq capsule, extended release 30 meq PO TID 30 Days Qty: 270 5RF Held aspirin 81 mg tablet,chewable 1 tab PO DAILY Hold Instructions: Resume on 01/16/25. at least one week until you speak with either or both Dr. Street or your vascular surgeon Dr. Ocampo at [facility] about safety of continued use. Discharge Orders: Discharge Order (Routine); Ordered 01/09/25 Ordered By: Leona Ospina Patient Education: Anemia (DC) Additional Instructions: 1. Your aspirin is on hold for now. Please speak with either or both Dr. Street or your vascular surgeon Dr. Ocampo at [facility] about safety of continued use. You are on the aspirin and clopidogrel (Plavix) for the stents in your legs and the risk of being off them (clotting again) or internal bleeding is a decision for you and your care team of great importance. 2. Make sure you see Dr. Street early next week and for a pre-op before your lumbar surgery. Make sure Dr. Lopez knows you were anemic and admitted for transfusion of 3 units of packed red blood cells. Activity Level: Activity as Tolerated Discharge Diet: Heart Healthy (2 gm sodium, low fat) Follow Up Appointments: Poli Street MD [Primary Care Provider, Family Practice] Referral Note: follow up as needed Forms: Immunexpressth Info Instructions
[2025-01-09] MEDS: CLOPIDOGREL 75 MG TABLET PO (16:19)
[2025-01-09 16:37] LABS: Hemoglobin* 8.7 gm/dL (13.5-17.5)
== END 2025-01-09 16:30 | disposition home or self-care (01) | DRG 663 ==
LOC: ED 20:14 → MEDSURG 20:57
PROVIDERS: Family Medicine; Internal Medicine; Admitting Provider Family Medicine; Emergency Provider Family Medicine; PCP Family Medicine; Visit Provider Family Medicine
DX: D50.0 Iron deficiency anemia secondary to blood loss (chronic) (principal); K92.2 Gastrointestinal hemorrhage, unspecified; K21.9 Gastro-esophageal reflux disease without esophagitis; I13.0 Hypertensive heart and chronic kidney disease with heart failure and stage 1 through stage 4 chronic kidney disease, or unspecified chronic kidney disease; I50.30 Unspecified diastolic (congestive) heart failure; N18.30 Chronic kidney disease, stage 3 unspecified; I73.9 Peripheral vascular disease, unspecified; I25.10 Atherosclerotic heart disease of native coronary artery without angina pectoris; I25.2 Old myocardial infarction; J44.9 Chronic obstructive pulmonary disease, unspecified; M54.16 Radiculopathy, lumbar region; E78.2 Mixed hyperlipidemia
CPT/HCPCS: 00731; 36415; 36430; 43239; 74177; 80048; 80076; 82270; 82728; 83540; 83550; 83735; 84484; 85018; 85025; 85045; 85610; 85730; 86850; 86900; 86901; 86922; 87338; 88305; 94761; 99284; 99285; 99291; A9270; G0378; J1938; J2470; J2704; J3490; J7030; J7050; P9016; Q9967

== ENCOUNTER 2025-01-13 10:03 | Outpatient (CLI) | payer BC, SELFPAY | END 2025-01-13 10:04 | disposition home or self-care (01) | PROVIDERS: PCP Family Medicine; Visit Provider Family Medicine | DX: D50.9 Iron deficiency anemia, unspecified (principal) | CPT/HCPCS: 82728; 85025 ==

== ENCOUNTER 2025-02-26 09:51 | Outpatient (CLI) | payer BC, SELFPAY | END 2025-02-26 09:52 | disposition home or self-care (01) | PROVIDERS: PCP Family Medicine; Visit Provider Family Medicine | DX: D50.0 Iron deficiency anemia secondary to blood loss (chronic) (principal) | CPT/HCPCS: 80048; 82728; 83735; 85027; A9270 ==

== ENCOUNTER 2025-02-26 16:47 | Emergency (ER) | payer BC, SELFPAY ==
[2025-02-26] VITALS (41 sets, daily range): BP systolic 101–137; BP diastolic 63–72; PULSE 52–65; RESP 13–92; TEMP 36.7–37.4; O2SAT 80–100; BMI 36.2
--- NOTE | 2025-02-26 17:03 | ED.GENADULT ---
HPI - General Adult General Chief complaint: Dizziness/Vertigo Stated complaint: low hemoglobin Time Seen by Provider: 02/26/25 16:47 Source: patient Mode of arrival: ambulatory Limitations: no limitations History of Present Illness HPI narrative: 54-year-old male presenting today with dizziness. 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 Patient is currently undergoing a workup for this, he has a capsule endoscopy scheduled soon. He has required blood transfusions in the past because of this. He states that he had a hemoglobin checked this morning and it was low at 7.0. Patient does feel lightheaded dizzy, especially when he gets up to walk. He feels chilly. Does feel slight shortness of breath with physical activity. He denies any chest pain or abdominal pain. Last transfusion was about 7 weeks ago. Related Data Home Medications ?Medication ?Instructions ?Recorded ?Confirmed aspirin 81 mg chewable tablet 1 tab PO DAILY 09/22/21 01/13/25 Held on 01/09/25. Instructions: Resume on 01/16/25. at least one week until you speak with either or both Dr. Street or your vascular surgeon Dr. Ocampo at [facility] about safety of continued use. nitroglycerin 0.4 mg sublingual 0.4 mg sublingual .As Needed as 01/26/22 01/13/25 tablet needed PRN atorvastatin 40 mg tablet 40 mg PO DAILY 07/15/24 01/13/25 torsemide 20 mg tablet 20 mg PO BID 07/15/24 01/13/25 losartan 50 mg tablet 50 mg PO DAILY 01/08/25 01/13/25 Previous Rx's ?Medication ?Instructions ?Recorded albuterol sulfate 90 mcg/actuation 2 puff inhalation Q6H PRN 07/05/22 aerosol inhaler shortness of breath or wheezing #8.5 grams fluticasone 250 mcg-salmeterol 50 1 inh inhalation BID #60 ea 07/05/22 mcg/dose blistr powdr for inhalation (Advair Diskus) ferrous sulfate 325 mg (65 mg 325 mg PO BID #60 tabs 10/24/23 iron) tablet aripiprazole 30 mg tablet 30 mg PO DAILY #90 tabs 03/04/24 bupropion HCl 300 mg 24 hr tablet, 300 mg PO DAILY #90 tabs 12/23/24 extended release clopidogrel 75 mg tablet 75 mg PO DAILY #90 tabs 03/04/24 duloxetine 30 mg capsule,delayed 30 mg PO QAM #90 caps 03/04/24 release duloxetine 60 mg capsule,delayed 60 mg PO QAM #90 caps 03/04/24 release metoprolol succinate 200 mg 200 mg PO DAILY #90 tabs 03/04/24 tablet,extended release 24 hr spironolactone 100 mg tablet 100 mg PO DAILY #90 tabs 03/04/24 tamsulosin 0.4 mg capsule 0.4 mg PO DAILY #90 caps 09/23/24 gabapentin 300 mg capsule 300 mg PO TID #270 caps 10/01/24 pantoprazole 40 mg tablet,delayed 40 mg PO QDAY #90 tabs 11/20/24 release (Protonix) potassium chloride 10 mEq 30 meq (3 x 10 mEq) PO TID 30 days 11/26/24 capsule,extended release #270 caps tirzepatide (weight loss) 2.5 2.5 mg (0.5 mL) subcut QWEEK #2 mL 01/13/25 mg/0.5 mL subcutaneous pen injector (Zepbound) zolpidem 10 mg tablet 10 mg PO HS PRN insomnia #30 tabs 01/13/25 Allergies Allergy/AdvReac Type Severity Reaction Status Date / Time ciprofloxacin Allergy Severe violently Verified 01/13/25 09:34 ill rosuvastatin Allergy Unknown shutting Verified 01/13/25 09:34 kidneys down triamterene (From Maxzide) AdvReac Intermediate Verified 01/13/25 09:34 hydrochlorothiazide AdvReac Verified 01/13/25 09:34 Review of Systems Status of ROS: Reports: 10 or more systems reviewed and unremarkable except as noted in History and below [facility] Medical History Obesity (BMI 30-39.9) ?E66.9 - Obesity, unspecified (ICD-10) CKD (chronic kidney disease) stage 3, GFR 30-59 ml/min ?N18.30 - Chronic kidney disease, stage 3 unspecified (ICD-10) Mixed hyperlipidemia ?E78.2 - Mixed hyperlipidemia (ICD-10) Primary hypertension ?I10 - Essential (primary) hypertension (ICD-10) ST elevation myocardial infarction (STEMI) (06/15/19) ?I21.3 - ST elevation (STEMI) myocardial infarction of unspecified site (ICD-10) Nocturia ?R35.1 - Nocturia (ICD-10) Iron deficiency anemia due to chronic blood loss ?D50.0 - Iron deficiency anemia secondary to blood loss (chronic) (ICD-10) COPD (chronic obstructive pulmonary disease) ?J44.9 - Chronic obstructive pulmonary disease, unspecified (ICD-10) B12 deficiency ?E53.8 - Deficiency of other specified B group vitamins (ICD-10) Peripheral neuropathy ?G62.9 - Polyneuropathy, unspecified (ICD-10) Colon polyps ?K63.5 - Polyp of colon (ICD-10) ASCVD (arteriosclerotic cardiovascular disease) ?I25.10 - Atherosclerotic heart disease of [place] coronary artery without angina pectoris (ICD-10) History of CHF (congestive heart failure) ?Z86.79 - Personal history of other diseases of the circulatory system (ICD-10) Hypokalemia ?E87.6 - Hypokalemia (ICD-10) Generalized anxiety disorder ?F41.1 - Generalized anxiety disorder (ICD-10) Moderate episode of recurrent major depressive disorder (08/31/08) ?F33.1 - Major depressive disorder, recurrent, moderate (ICD-10) Melena ?K92.1 - Melena (ICD-10) History of colonic polyps ?Z86.010 - Personal history of colonic polyps (ICD-10) Gastroesophageal reflux disease ?K21.9 - Gastro-esophageal reflux disease without esophagitis (ICD-10) Erectile dysfunction ?N52.9 - Male erectile dysfunction, unspecified (ICD-10) Surgical History Presence of stent in artery ?Z95.828 - Presence of other vascular implants and grafts (ICD-10) Family History Family/Other Stroke Prostate cancer Father High blood pressure Lung cancer Type 1 diabetes mellitus Daughter Anxiety Social History Narrative: Previous smoker (quit in 2019 after first [place]). 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 Full Code What is your current living situation?: I presently have a place to live Problems where you live: no known problems In the past 12 months, utilities in danger of being shut off: no In past 12 months, lack of transportation kept you from medical appts, meetings, work, or getting things needed for daily living: no In the past 12 mos, have been you worried that your food would run out before you had money to buy more?: never true In the past 12 mos, the food you bought just didn't last and you didn't have money to buy more?: never true Highest level of school completed/degree received: Associate degree: occupational, technical, vocational program Smoking Status: Former smoker Do you use any of these nicotine containing products: None Second hand tobacco smoke exposure: No How often do you have a drink containing alcohol: never AUDIT-C Alcohol total score: 0 Non-prescribed substance use: denies use Caffeine: Yes How often does anyone, including family, friends and others, physically hurt you: never How often does anyone, including family, friends and others, insult or talk down to you: never How often does anyone, including family, friends and others, threaten you with harm: never How often does anyone, including family, friends and others, scream or curse at you: never service: No Exam Narrative: Exam Narrative: Overweight, well-developed patient in no acute distress. Alert and oriented. Answers questions appropriately. Mood and affect are appropriate. Thoughts are goal oriented and rational. No tangential or magical thinking noted. Patient speaks in full sentences without needing to catch his breath. HEENT: Normocephalic atraumatic. Pupils are equally round reactive to light. Extraocular muscles are intact. Conjunctivae are moist without any icterus noted, pale. Moist mucous membranes, pale. Cardiovascular: Heart is regular rate and rhythm. Lungs: Clear to auscultation bilaterally. Abdomen: Soft and nontender nondistended with normal bowel sounds. Skin: Well perfused without any obvious rashes. Pale. Const: Vital Signs, click to edit/add: Vital Signs - 24 hr 02/26/25 16:54 02/26/25 18:13 02/26/25 18:15 Temperature 98.1 F Pulse Rate 52 L 53 L Pulse Rate [Pulse Oximeter] 64 Respiratory Rate 18 Blood Pressure Blood Pressure [Ri ght Upper Arm] 101/66 Pulse Oximetry 98 95 94 Oxygen Delivery Me thod Room Air 02/26/25 18:30 02/26/25 18:45 02/26/25 19:30 Temperature Pulse Rate 55 L 55 L Pulse Rate [Pulse Oximeter] Respiratory Rate Blood Pressure Blood Pressure [Ri ght Upper Arm] Pulse Oximetry 96 96 80 L Oxygen Delivery Me thod 02/26/25 19:49 02/26/25 19:50 02/26/25 19:50 Temperature 98.6 F Pulse Rate 65 60 64 Pulse Rate [Pulse Oximeter] Respiratory Rate 16 Blood Pressure 132/69 132/69 Blood Pressure [Ri ght Upper Arm] Pulse Oximetry 100 97 96 Oxygen Delivery Me thod Room Air 02/26/25 20:00 02/26/25 20:02 02/26/25 20:10 Temperature 99.4 F Pulse Rate 60 58 L 58 L Pulse Rate [Pulse Oximeter] Respiratory Rate 16 Blood Pressure 121/71 118/63 Blood Pressure [Ri ght Upper Arm] Pulse Oximetry 95 95 96 Oxygen Delivery Me thod 02/26/25 20:12 02/26/25 20:15 Temperature Pulse Rate 59 L 65 Pulse Rate [Pulse Oximeter] Respiratory Rate Blood Pressure 118/63 Blood Pressure [Ri ght Upper Arm] Pulse Oximetry 97 92 Oxygen Delivery Me thod Course Course ED Course: Reviewed the patient's medical records in the lab work that he had done today. Given the chronicity of the patient's symptoms and the lack of any new symptoms, we will go ahead and transfuse 2 units of blood today without any further workup. Type and cross ordered and 2 units of packed red blood cells ordered for transfusion. Vital Signs Vital signs: Initial Vital Signs Temperature 98.1 F 02/26/25 16:54 Temperature Source Oral 02/26/25 16:54 Pulse Rate 64 02/26/25 16:54 Respiratory Rate 18 02/26/25 16:54 Blood Pressure 101/66 02/26/25 16:54 Blood Pressure Mean 77 02/26/25 16:54 Blood Pressure Position Sitting 02/26/25 16:54 Pulse Oximetry 98 02/26/25 16:54 Oxygen Delivery Method Room Air 02/26/25 16:54 Vital Signs Temperature 98.1 F 02/26/25 16:54 Pulse Rate 64 02/26/25 16:54 Respiratory Rate 18 02/26/25 16:54 Blood Pressure 101/66 02/26/25 16:54 Pulse Oximetry 98 02/26/25 16:54 Oxygen Delivery Method Room Air 02/26/25 16:54 Temperature 99.4 F 02/26/25 20:10 Pulse Rate 65 02/26/25 20:15 Respiratory Rate 16 02/26/25 20:10 Blood Pressure 118/63 02/26/25 20:12 Pulse Oximetry 92 02/26/25 20:15 Oxygen Delivery Method Room Air 02/26/25 19:50 Medical Decision Making MDM Narrative Medical decision making narrative: 54-year-old with chronic blood loss anemia, status post transfusion of 2 units of packed red blood cells. Patient will be discharged home to follow-up with his primary care and GI team as scheduled. Lab Data Labs: Lab Results 02/26/25 Range/Units 17:14 Blood Type A Positive Antibody Screen NEGATIVE Crossmatch (AHG) See Detail Discharge Plan Discharge Clinical Impression: Iron deficiency anemia due to chronic blood loss Patient Disposition: Home, Self-Care Condition: Stable Additional Instructions: Follow-up with your team as scheduled. Recommend hemoglobin be checked tomorrow. Prescriptions: No Action fluticasone propion-salmeterol [Advair Diskus] 250-50 mcg/dose blister with device 1 inh inhalation BID Qty: 60 5RF albuterol sulfate 90 mcg/actuation HFA aerosol inhaler 2 puff inhalation Q6H PRN (Reason: shortness of breath or wheezing) Qty: 8.5 5RF atorvastatin 40 mg tablet 40 mg PO DAILY torsemide 20 mg tablet 20 mg PO BID aspirin 81 mg tablet,chewable 1 tab PO DAILY nitroglycerin 0.4 mg tablet, sublingual 0.4 mg sublingual .As Needed as needed PRN aripiprazole 30 mg tablet 30 mg PO DAILY Qty: 90 3RF bupropion HCl 300 mg tablet extended release 24 hr 300 mg PO DAILY Qty: 90 3RF clopidogrel 75 mg tablet 75 mg PO DAILY Qty: 90 3RF duloxetine 60 mg capsule,delayed release(DR/EC) 60 mg PO QAM Qty: 90 3RF Rx Instructions: Takes 90mg in the morning duloxetine 30 mg capsule,delayed release(DR/EC) 30 mg PO QAM Qty: 90 3RF Rx Instructions: total dose 90 mg spironolactone 100 mg tablet 100 mg PO DAILY Qty: 90 3RF metoprolol succinate 200 mg tablet extended release 24 hr 200 mg PO DAILY Qty: 90 3RF zolpidem 10 mg tablet 10 mg PO HS PRN (Reason: insomnia) Qty: 30 2RF Zepbound 2.5 mg/0.5 mL pen injector 2.5 mg subcut QWEEK Qty: 2 0RF Rx Instructions: for 4 weeks losartan 50 mg tablet 50 mg PO DAILY ferrous sulfate 325 mg (65 mg iron) tablet 325 mg PO BID Qty: 60 5RF tamsulosin 0.4 mg capsule 0.4 mg PO DAILY Qty: 90 3RF gabapentin 300 mg capsule 300 mg PO TID Qty: 270 2RF Rx Instructions: Increase by one pill/day weekly to a target dose of 900 mg TID pantoprazole [Protonix] 40 mg tablet,delayed release (DR/EC) 40 mg PO QDAY Qty: 90 1RF potassium chloride 10 mEq capsule, extended release 30 meq PO TID 30 Days Qty: 270 5RF Follow Up/Referrals: Poli Street MD [Primary Care Provider, Family Practice] Stand Alone Forms: [employer] Info Instructions
[2025-02-27 00:03] VITALS: BP 131/54; PULSE 55; RESP 24; O2SAT 93
[2025-02-27 00:04] VITALS: BP 131/54; PULSE 55; RESP 20; TEMP 37; O2SAT 97
[2025-02-27] MEDS: 0.9 % SODIUM CHLORIDE 500 ML 250 ML IV (00:07)
[2025-02-27 00:16] VITALS: BP 121/90; PULSE 56; RESP 21; TEMP 36.9; O2SAT 100
[2025-02-27 00:18] VITALS: BP 121/90; PULSE 62; RESP 19; O2SAT 95
[2025-02-27 01:00] VITALS: BP 127/72; PULSE 59; RESP 24; TEMP 36.8; O2SAT 94
[2025-02-27 01:16] VITALS: BP 127/72; PULSE 66; RESP 21; TEMP 36.8; O2SAT 96
== END 2025-02-27 01:20 | disposition home or self-care (01) ==
PROVIDERS: Emergency Provider Family Medicine; PCP Family Medicine
DX: D50.0 Iron deficiency anemia secondary to blood loss (chronic) (principal)
CPT/HCPCS: 36415; 36430; 80048; 82728; 83735; 85027; 86850; 86900; 86901; 86922; 99284; 99285; 99291; A9270; J7030; P9016

== ENCOUNTER 2025-03-03 11:11 | Outpatient (CLI) | payer BC, SELFPAY | END 2025-03-03 11:12 | disposition home or self-care (01) | LOC: FBOREF 11:12 | PROVIDERS: PCP Family Medicine; Visit Provider Family Medicine | DX: D50.0 Iron deficiency anemia secondary to blood loss (chronic) (principal) | CPT/HCPCS: 85025 ==